=== PATIENT | female | born 1930 | race Asian ===

== ENCOUNTER 2016-12-01 18:18 | Inpatient (IN) | payer MEDICARE, MEDICAID ==
[~2016-12-01] VITALS: Ht 149.9 cm; Wt 43.1 kg
[~2016-12-01 18:18] MED LIST: NKM
[2016-12-01 18:45] VITALS: BP 131/72
[2016-12-01] MEDS ORDERED: OYSTER SHELL 51 EAC1 PO (19:30)
[2016-12-01] MEDS ORDERED: MEGACE40 MG PO (19:30)
[2016-12-01] MEDS ORDERED: FOLIC ACID1 MG ORAL (19:30)
[2016-12-01] MEDS ORDERED: NAMZARIC 28 MG1 EACH PO (19:30)
[2016-12-01] MEDS ORDERED: FERROUS SULFAT325 MG ORAL (19:30)
[2016-12-01] MEDS ORDERED: CELEBREX200 MG ORAL (19:30)
[2016-12-01 20:01] LABS: ALANINE AMINOTRANSFERASE 13 U/L (3-33); ALBUMIN/GLOBULIN RATIO 1.2 (1.0-2.7); ANION GAP 12 (5-15); ASPARTATE AMINO TRANSFERASE 37 U/L (5-40); CARBON DIOXIDE 25 mEQ/L (20-30); CHLORIDE 104 mEQ/L (98-107); CREATININE 0.7 mg/dL (0.5-0.9); HEMOLYSIS 150; POTASSIUM 4.7 mEQ/L (3.4-4.9); SODIUM 141 mEQ/L (135-145); TOTAL PROTEIN 6.6 g/dL (6.6-8.7); TROPONIN I < 0.30 ng/mL (<=0.30)
[2016-12-01 20:11] LABS: CKMB < 1.5 ng/mL (< 3.8)
--- NOTE | 2016-12-01 20:14 | Emergency Room Report ---
History of Present Illness General Chief Complaint: Dizziness Source: Patient, Family Member Present Illness HPI 86YOF BIBEMS for not eating/generalized weakness/low energy for 1 week since she fell/broke left wrist Had cast placed outside hospital. Ortho says non surgical Patient lives alone, was going to daily adult activities and eating prior History of "early" dementia. No HTN, DM, COPD/asthma, CHF, CAD per son Required prior IV infusion at home for weakness and "perked up" per Patient also endorses generalized dizziness - constant - worse with movement. Denies headache, fever/chills, neck pain. Allergies: Coded Allergies: No Known Allergies (Unverified , 03/08/12) Patient History Past Medical History: dementia Past Surgical History: none Pertinent Family History: none Social History: Denies: smoking, alcohol use, drug use Last Menstrual Period: na Now: No Immunizations: UTD Reviewed Nursing Documentation: PMH: Agreed, PSxH: Agreed Nursing Documentation-PMH Past Medical History: No History, Except For Review of Systems All Other Systems: negative except mentioned in HPI Physical Exam Vital Signs Date Time Temp Pulse Resp B/P (MAP) Pulse Ox O2 Delivery O2 Flow Rate FiO2 12/01/16 18:24 97.9 78 16 127/73 99 Room Air Sp02 EP Interpretation: reviewed, normal General Appearance: normal inspection, well appearing, no apparent distress, alert, GCS 15, non-toxic Head: normocephalic, atraumatic Eyes: bilateral eye PERRL, bilateral eye EOMI ENT: normal ENT inspection, hearing grossly normal, normal voice Neck: normal inspection, full range of motion, supple, no bony tend Respiratory: normal inspection, lungs clear, normal breath sounds, no respiratory distress, no retraction, no wheezing Cardiovascular #1: regular rate, rhythm, no edema Gastrointestinal: normal inspection, normal bowel sounds, non tender, soft, no guarding, no hernia Genitourinary: no CVA tenderness Musculoskeletal: normal inspection, back normal, normal range of motion, Chaya' s Sign negative, other - left wrist: cast in place. Able to move all fingers. No pallor. Neurologic: normal inspection, alert, oriented x3, responsive, railroad signal operator III-XII nml as tested, motor strength/tone normal, speech normal Psychiatric: normal inspection, judgement/insight normal, mood/affect normal Skin: normal inspection, normal color, no rash Lymphatic: normal inspection Medical Decision Making Medicare Attestation I Abel Abraham MD hereby attest that the medical record entry for date of service, 12/01/16 accurately reflects signatures/notations that I made in my capacity as MD when I treated/diagnosed the above listed Medicare beneficiary. I attest that this information is true, accurate and complete to the best of my knowledge. I understand that any falsification, omission, or concealment of material fact may subject me to administrative, civil, or criminal liability. This patient warrants hospital admission for extreme of age and has a condition that cannot be treated as outpatient. Diagnostic Impression: Primary Impression: Failure to thrive Qualified Codes: R62.7 - Adult failure to thrive Additional Impression: Weakness ER Course Labs: No leuks. H&h stable. No metabolic abnormalities. CXR normal ECG normal CT head: No CVA, mass, mass effect IV Dextrose NS started in ED Dx: failure to thrive, weakness Endorsed to Dr Neal med surg admission 814pm EKG Diagnostic Results Rate: normal Rhythm: NSR ST Segments: no acute changes ASA given to the pt in ED: No Rhythm Strip Diag. Results EP Interpretation: yes Rate: 68 Rhythm: NSR, no PVC's, no ectopy Chest X-Ray Diagnostic Results Chest X-Ray Diagnostic Results : Chest X-Ray Ordered: Yes # of Views/Limited/Complete: 1 View Indication: Other - weaness Interpretation: no effusion, no pneumothorax, no acute cardiopulmonary disease Impression: No acute disease Electronically Signed by: Dr Abel Abraham MD Last Vital Signs Date Time Temp Pulse Resp B/P (MAP) Pulse Ox O2 Delivery O2 Flow Rate FiO2 12/01/16 18:45 98.1 78 16 131/72 99 Room Air Status: improved Disposition: ADMITTED INPATIENT Condition: Serious Referrals: NON PHYSICIAN (PCP) ABEL ABRAHAM M.D. Dec 01, 2016 20:14
[2016-12-01 20:49] VITALS: BP 123/60
[2016-12-01 20:49] LABS: BASOPHILS % (AUTO) 1.3 % (0.0-2.0); LYMPHOCYTES % (AUTO) 30.7 % (20.0-45.0); MEAN CORPUSCULAR HEMOGLOBIN 35.5 PG (27.0-31.0); MEAN CORPUSCULAR HGB CONC 34.9 G/DL (32.0-36.0); MEAN CORPUSCULAR VOLUME 102 FL (80-99); MEAN PLATELET VOLUME 5.7 FL (6.5-10.1); MONOCYTES % (AUTO) 8.9 % (1.0-10.0); NEUTROPHILS % (AUTO) 57.1 % (45.0-75.0); PLATELET COUNT 168 K/UL (150-450); RED BLOOD COUNT 3.48 M/UL (4.20-5.40); RED CELL DISTRIBUTION WIDTH 10.6 % (11.6-14.8); WHITE BLOOD COUNT 5.3 K/UL (4.8-10.8)
[2016-12-01] MEDS ORDERED: Morphine Sulfate 2mg/ml Inj IVP PRN (21:15)
[2016-12-01] MEDS ORDERED: Miralax 17gm pkt ORAL PRN (21:15)
[2016-12-01] MEDS ORDERED: LORazepam Inj 2mg/ml 1ml IV PRN (21:15)
[2016-12-01] MEDS ORDERED: Zolpidem 5mg tab ORAL PRN (21:15)
[2016-12-01] MEDS ORDERED: Mylanta II UD 30ml ORAL PRN (21:15)
[2016-12-01 22:15] VITALS: BP 109/59
[2016-12-02] VITALS: BP 127/66
[2016-12-02 04:00] VITALS: BP 138/61
[2016-12-02 08:00] VITALS: BP 132/70
[2016-12-02] MEDS: Heparin 5000 units/ml inj SUBQ SCH ×2 (08:42→20:14)
--- NOTE | 2016-12-02 09:48 | Diagnostic Imaging Report ---
Indication: Dizziness and headache Technique: Contiguous 5 mm thick transaxial imaging of the head obtained in a Siemens Sensation [address] scanner. Soft tissue and bone windows generated. Total Dose length Product (DLP): [address] Dose Index Volume (CTDIvol): 70.38, 0.15 mGy Comparison: none Findings: There is moderate prominence of the ventricles, basal cisterns, and cerebral sulci consistent with atrophy. Moderate, nonspecific, white matter hypoattenuation is noted throughout the brain consistent with chronic small vessel disease. There is no midline shift, edema, acute hemorrhage, mass effect, or abnormal extra-axial fluid collections. Bones and extra osseous soft tissues are unremarkable. Impression: No acute intracranial bleed, mass effect or edema. Moderate atrophy of the brain. Evidence of chronic small vessel disease involving white matter tracts. The CT scanner at [facility] is accredited by the [employer] and the scans are performed using dose optimization techniques as appropriate to a performed exam including Automatic Exposure control.
[2016-12-02 10:45] LABS: BASOPHILS % (AUTO) 0.7 % (0.0-2.0); EOSINOPHILS % (AUTO) 2.5 % (0.0-3.0); LYMPHOCYTES % (AUTO) 33.6 % (20.0-45.0); MEAN CORPUSCULAR HEMOGLOBIN 34.4 PG (27.0-31.0); MEAN CORPUSCULAR HGB CONC 33.3 G/DL (32.0-36.0); MEAN CORPUSCULAR VOLUME 103 FL (80-99); MONOCYTES % (AUTO) 8.6 % (1.0-10.0); NEUTROPHILS % (AUTO) 54.6 % (45.0-75.0); PLATELET COUNT 218 K/UL (150-450); RED BLOOD COUNT 4.04 M/UL (4.20-5.40); RED CELL DISTRIBUTION WIDTH 10.9 % (11.6-14.8); WHITE BLOOD COUNT 4.1 K/UL (4.8-10.8)
[2016-12-02 11:02] LABS: ALANINE AMINOTRANSFERASE 12 U/L (3-33); ALBUMIN/GLOBULIN RATIO 1.1 (1.0-2.7); ANION GAP 14 (5-15); ASPARTATE AMINO TRANSFERASE 24 U/L (5-40); CALCIUM 8.9 mg/dL (8.6-10.2); CARBON DIOXIDE 26 mEQ/L (20-30); CHLORIDE 101 mEQ/L (98-107); CHOLESTEROL 203 mg/dL (< 200); CHOLESTEROL/HDL RATIO 3.6 (3.3-4.4); CREATININE 0.8 mg/dL (0.5-0.9); HEMOLYSIS 5; LDL CHOLESTEROL CALC 122 mg/dL (60-99); POTASSIUM 3.7 mEQ/L (3.4-4.9); SODIUM 141 mEQ/L (135-145); TOTAL PROTEIN 7.1 g/dL (6.6-8.7)
[2016-12-02 11:04] LABS: HEMOGLOBIN A1C 5.5 % (< 6.0)
--- NOTE | 2016-12-02 11:32 | Diagnostic Imaging Report ---
Indication: Dyspnea Comparison: 03/08/12 A single view chest radiograph was obtained. Findings: The bones are osteopenic. The heart is mildly enlarged. Aorta is ectatic and calcified. Lungs are clear. Impression: No acute disease
[2016-12-02 12:00] VITALS: BP 113/64
[2016-12-02 16:00] VITALS: BP 110/66
--- NOTE | 2016-12-02 16:37 | History and Physical ---
History of Present Illness General Date patient seen: Dec 01, 2016 Reason for Hospitalization: Dizziness Present Illness HPI 86 year old female with hx of dementia brought in by paramedics with CC of lack of energy, not eating and constant dizziness which gets worse with moving. She broke her wrist recently and also was getting some IV meds at PMD's office. she is a poor historian and can't provide more history. Allergies: Coded Allergies: No Known Allergies (Unverified , 03/08/12) Medication History Scheduled Calcium Carbonate/Vitamin D3 (Oyster Shell 500 Mg + Vit D Tb), 1 EACH PO BID, ( Reported) Celecoxib* (Celebrex*), 200 MG ORAL DAILY, (Reported) Ferrous Sulfate* (Ferrous Sulfate*), 325 MG ORAL DAILY, (Reported) Folic Acid* (Folic Acid*), 1 MG ORAL DAILY, (Reported) Megestrol Acetate (Megestrol Acetate), 40 MG PO BID, (Reported) No Known Medications* (NKM - No Known Medications*), 0 ., (Reported) Miscellaneous Medications Memantine HCl/Donepezil HCl (Namzaric 28 mg-10 mg Capsule), 1 EACH PO, (Reported ) Patient History Healthcare decision maker Resuscitation status Full Code Advanced Directive on File No Past Medical/Surgical History Past Medical/Surgical History: (1) Dizziness (2) Dementia Review of Systems All Other Systems: negative except mentioned in HPI Physical Exam General Appearance: WD/WN Lines, tubes and drains: peripheral, central line HEENT: normocephalic, atraumatic Neck: non-tender, normal alignment Respiratory/Chest: chest wall non-tender, lungs clear Breasts: no masses Cardiovascular/Chest: normal peripheral pulses Abdomen: normal bowel sounds, non tender Genitourinary/Rectal: normal genital exam Extremities: normal range of motion Skin Exam: normal pigmentation Last 24 Hour Vital Signs Date Time Temp Pulse Resp B/P (MAP) Pulse Ox O2 Delivery O2 Flow Rate FiO2 12/02/16 12:00 98.2 82 18 113/64 99 Room Air 12/02/16 08:00 98.9 75 18 132/70 99 Room Air 12/02/16 04:00 97.6 68 16 138/61 98 Room Air 12/02/16 00:00 98.0 76 17 127/66 98 Room Air 12/01/16 22:15 97.9 71 16 109/59 98 Room Air 12/01/16 21:11 98.1 68 16 123/60 98 Room Air 12/01/16 20:49 98.1 68 16 123/60 98 Room Air 12/01/16 18:45 98.1 78 16 131/72 99 Room Air 12/01/16 18:24 97.9 78 16 127/73 99 Room Air Laboratory Tests Test 12/01/16 19:20 12/01/16 20:19 12/02/16 10:35 Sodium Level 141 mEQ/L (135-145) 141 mEQ/L (135-145) Potassium Level 4.7 mEQ/L (3.4-4.9) 3.7 mEQ/L (3.4-4.9) Chloride Level 104 mEQ/L (98-107) 101 mEQ/L (98-107) Carbon Dioxide Level 25 mEQ/L (20-30) 26 mEQ/L (20-30) Anion Gap 12 (5-15) 14 (5-15) Blood Urea Nitrogen 20 mg/dL (7-23) 14 mg/dL (7-23) Creatinine 0.7 mg/dL (0.5-0.9) 0.8 mg/dL (0.5-0.9) Estimat Glomerular Filtration Rate mL/min (>60) mL/min (>60) Glucose Level 99 mg/dL (74-106) 191 mg/dL (74-106) H Calcium Level 9.0 mg/dL (8.6-10.2) 8.9 mg/dL (8.6-10.2) Total Bilirubin 0.5 mg/dL (0.0-1.2) 0.6 mg/dL (0.0-1.2) Aspartate Amino Transf (AST/SGOT) 37 U/L (5-40) 24 U/L (5-40) Alanine Aminotransferase (ALT/SGPT) 13 U/L (3-33) 12 U/L (3-33) Alkaline Phosphatase 41 U/L (35-104) 44 U/L (35-104) Total Creatine Kinase 69 U/L (26-140) Creatine Kinase MB < 1.5 ng/mL (< 3.8) Creatine Kinase MB Relative Index Troponin I < 0.30 ng/mL (<=0.30) Total Protein 6.6 g/dL (6.6-8.7) 7.1 g/dL (6.6-8.7) Albumin 3.7 g/dL (3.5-5.2) 3.8 g/dL (3.5-5.2) Globulin 2.9 g/dL 3.3 g/dL Albumin/Globulin Ratio 1.2 (1.0-2.7) 1.1 (1.0-2.7) White Blood Count 5.3 K/UL (4.8-10.8) 4.1 K/UL (4.8-10.8) L Red Blood Count 3.48 M/UL (4.20-5.40) L 4.04 M/UL (4.20-5.40) L Hemoglobin 12.4 G/DL (12.0-16.0) 13.9 G/DL (12.0-16.0) Hematocrit 35.4 % (37.0-47.0) L 41.8 % (37.0-47.0) Mean Corpuscular Volume 102 FL (80-99) H 103 FL (80-99) H Mean Corpuscular Hemoglobin 35.5 PG (27.0-31.0) H 34.4 PG (27.0-31.0) H Mean Corpuscular Hemoglobin Concent 34.9 G/DL (32.0-36.0) 33.3 G/DL (32.0-36.0) Red Cell Distribution Width 10.6 % (11.6-14.8) L 10.9 % (11.6-14.8) L Platelet Count 168 K/UL (150-450) 218 K/UL (150-450) Mean Platelet Volume 5.7 FL (6.5-10.1) L 6.0 FL (6.5-10.1) L Neutrophils (%) (Auto) 57.1 % (45.0-75.0) 54.6 % (45.0-75.0) Lymphocytes (%) (Auto) 30.7 % (20.0-45.0) 33.6 % (20.0-45.0) Monocytes (%) (Auto) 8.9 % (1.0-10.0) 8.6 % (1.0-10.0) Eosinophils (%) (Auto) 2.0 % (0.0-3.0) 2.5 % (0.0-3.0) Basophils (%) (Auto) 1.3 % (0.0-2.0) 0.7 % (0.0-2.0) Hemoglobin A1c 5.5 % (< 6.0) Triglycerides Level 127 mg/dL (< 150) Cholesterol Level 203 mg/dL (< 200) H LDL Cholesterol 122 mg/dL (60-99) H HDL Cholesterol 56 mg/dL (> 60) Cholesterol/HDL Ratio 3.6 (3.3-4.4) Thyroid Stimulating Hormone (TSH) 2.000 uIU/mL (0.300-4.500) Height (Feet): 4 Height (Inches): 11.00 Weight (Pounds): 95 Medications Current Medications Medications (Trade) Dose Ordered Sig/Lisa Route PRN Reason Start Time Stop Time Status Last Admin Dose Admin Acetaminophen (Tylenol) 650 mg Q4H PRN ORAL T>100.5 12/01/16 21:15 12/31/16 21:14 Al Hydroxide/Mg Hydroxide (Mylanta II) 30 ml Q6H PRN ORAL dyspepsia 12/01/16 21:15 12/31/16 21:14 Dextrose (Dextrose 50%) STAT PRN IV Hypoglycemia 12/01/16 21:15 12/31/16 21:14 Dextrose/Sodium Chloride 1,000 ml @ 50 mls/hr Q20H IV 12/02/16 16:30 01/01/17 16:29 Heparin Sodium (Porcine) (Heparin 5000 units/ml) 5,000 units EVERY 12 HOURS SUBQ 12/02/16 09:00 01/01/17 08:59 12/02/16 08:42 Lorazepam (Ativan 2mg/ml 1ml) 0.5 mg Q4H PRN IV For Anxiety 12/01/16 21:15 12/08/16 21:14 Morphine Sulfate (Morphine Sulfate) 1 mg Q4H PRN IVP PAIN 4-10 12/01/16 21:15 12/08/16 21:14 Ondansetron HCl (Zofran) 4 mg Q6H PRN IVP Nausea & Vomiting 12/01/16 21:15 12/31/16 21:14 Polyethylene Glycol (Miralax) 17 gm HSPRN PRN ORAL Constipation 12/01/16 21:15 12/31/16 21:14 Zolpidem Tartrate (Ambien) 5 mg HSPRN PRN ORAL Insomnia 12/01/16 21:15 12/08/16 21:14 Assessment/Plan Problem List: (1) Dizziness ICD Codes: R42 - Dizziness and giddiness SNOMED: 877963351, 420909117 (2) Failure to thrive SNOMED: 15896412 Qualifiers: Qualified Codes: R62.7 - Adult failure to thrive (3) Protein-calorie malnutrition, severe ICD Codes: E43 - Unspecified severe protein-calorie malnutrition SNOMED: 131871305 (4) Dementia ICD Codes: F03.90 - Unspecified dementia without behavioral disturbance SNOMED: 91196092 (5) Weakness ICD Codes: R53.1 - Weakness SNOMED: 25595565 Assessment/Plan neuro evaluation calorie count swallow evaluation pt/ot symptomatic treatment SKY SCHULER Dec 02, 2016 16:37
--- NOTE | 2016-12-02 16:38 | Pulmonology Progress Note ---
Assessment/Plan Problems: (1) Dizziness (2) Failure to thrive (3) Protein-calorie malnutrition, severe (4) Dementia (5) Weakness Assessment/Plan swallow study noted neuro evaluation pending continue calorie count pt/ot noted. Subjective ROS Limited/Unobtainable: No HEENT: Repors: no symptoms Respiratory: Reports: no symptoms Allergies: Coded Allergies: No Known Allergies (Unverified , 03/08/12) Objective Last 24 Hour Vital Signs Date Time Temp Pulse Resp B/P (MAP) Pulse Ox O2 Delivery O2 Flow Rate FiO2 12/02/16 12:00 98.2 82 18 113/64 99 Room Air 12/02/16 08:00 98.9 75 18 132/70 99 Room Air 12/02/16 04:00 97.6 68 16 138/61 98 Room Air 12/02/16 00:00 98.0 76 17 127/66 98 Room Air 12/01/16 22:15 97.9 71 16 109/59 98 Room Air 12/01/16 21:11 98.1 68 16 123/60 98 Room Air 12/01/16 20:49 98.1 68 16 123/60 98 Room Air 12/01/16 18:45 98.1 78 16 131/72 99 Room Air 12/01/16 18:24 97.9 78 16 127/73 99 Room Air General Appearance: cachetic HEENT: normocephalic, atraumatic Respiratory/Chest: chest wall non-tender, lungs clear Breasts: no masses Cardiovascular: normal peripheral pulses Abdomen: normal bowel sounds, soft, non tender Skin: no rash, no ulcers Neurologic/Psychiatric: pit hand II-XII grossly normal Laboratory Tests 12/01/16 19:20: Sodium Level 141, Potassium Level 4.7, Chloride Level 104, Carbon Dioxide Level 25, Anion Gap 12, Blood Urea Nitrogen 20, Creatinine 0.7, Estimat Glomerular Filtration Rate , Glucose Level 99, Calcium Level 9.0, Total Bilirubin 0.5, Aspartate Amino Transf (AST/SGOT) 37, Alanine Aminotransferase (ALT/SGPT) 13, Alkaline Phosphatase 41, Total Creatine Kinase 69, Creatine Kinase MB < 1.5, Creatine Kinase MB Relative Index , Troponin I < 0.30, Total Protein 6.6, Albumin 3.7, Globulin 2.9, Albumin/Globulin Ratio 1.2 12/01/16 20:19: White Blood Count 5.3, Red Blood Count 3.48L, Hemoglobin 12.4, Hematocrit 35.4L , Mean Corpuscular Volume 102H, Mean Corpuscular Hemoglobin 35.5H, Mean Corpuscular Hemoglobin Concent 34.9, Red Cell Distribution Width 10.6L, Platelet Count 168, Mean Platelet Volume 5.7L, Neutrophils (%) (Auto) 57.1, Lymphocytes (%) (Auto) 30.7, Monocytes (%) (Auto) 8.9, Eosinophils (%) (Auto) 2.0, Basophils (%) (Auto) 1.3 12/02/16 10:35: Sodium Level 141, Potassium Level 3.7, Chloride Level 101, Carbon Dioxide Level 26, Anion Gap 14, Blood Urea Nitrogen 14, Creatinine 0.8, Estimat Glomerular Filtration Rate , Glucose Level 191H, Calcium Level 8.9, Total Bilirubin 0.6, Aspartate Amino Transf (AST/SGOT) 24, Alanine Aminotransferase (ALT/SGPT) 12, Alkaline Phosphatase 44, Total Protein 7.1, Albumin 3.8, Globulin 3.3, Albumin/ Globulin Ratio 1.1, White Blood Count 4.1L, Red Blood Count 4.04L, Hemoglobin 13.9, Hematocrit 41.8, Mean Corpuscular Volume 103H, Mean Corpuscular Hemoglobin 34.4H, Mean Corpuscular Hemoglobin Concent 33.3, Red Cell Distribution Width 10.9L, Platelet Count 218, Mean Platelet Volume 6.0L, Neutrophils (%) (Auto) 54.6, Lymphocytes (%) (Auto) 33.6, Monocytes (%) (Auto) 8.6, Eosinophils (%) (Auto) 2.5, Basophils (%) (Auto) 0.7, Hemoglobin A1c 5.5, Triglycerides Level 127, Cholesterol Level 203H, LDL Cholesterol 122H, HDL Cholesterol 56, Cholesterol/HDL Ratio 3.6, Thyroid Stimulating Hormone (TSH) 2.000 Current Medications Medications (Trade) Dose Ordered Sig/Lisa Route PRN Reason Start Time Stop Time Status Last Admin Dose Admin Acetaminophen (Tylenol) 650 mg Q4H PRN ORAL T>100.5 12/01/16 21:15 12/31/16 21:14 Al Hydroxide/Mg Hydroxide (Mylanta II) 30 ml Q6H PRN ORAL dyspepsia 12/01/16 21:15 12/31/16 21:14 Dextrose (Dextrose 50%) STAT PRN IV Hypoglycemia 12/01/16 21:15 12/31/16 21:14 Dextrose/Sodium Chloride 1,000 ml @ 50 mls/hr Q20H IV 12/02/16 16:30 01/01/17 16:29 Heparin Sodium (Porcine) (Heparin 5000 units/ml) 5,000 units EVERY 12 HOURS SUBQ 12/02/16 09:00 01/01/17 08:59 12/02/16 08:42 Lorazepam (Ativan 2mg/ml 1ml) 0.5 mg Q4H PRN IV For Anxiety 12/01/16 21:15 12/08/16 21:14 Morphine Sulfate (Morphine Sulfate) 1 mg Q4H PRN IVP PAIN 4-10 12/01/16 21:15 12/08/16 21:14 Ondansetron HCl (Zofran) 4 mg Q6H PRN IVP Nausea & Vomiting 12/01/16 21:15 12/31/16 21:14 Polyethylene Glycol (Miralax) 17 gm HSPRN PRN ORAL Constipation 12/01/16 21:15 12/31/16 21:14 Zolpidem Tartrate (Ambien) 5 mg HSPRN PRN ORAL Insomnia 12/01/16 21:15 12/08/16 21:14 SKY SCHULER Dec 02, 2016 16:38
[2016-12-02] MEDS: D5 1/2NS 1,000 ML IV SCH (16:48)
[2016-12-02 20:00] VITALS: BP 104/60
[2016-12-03] VITALS: BP 143/74
[2016-12-03 04:00] VITALS: BP 110/62
[2016-12-03] MEDS: Heparin 5000 units/ml inj SUBQ SCH ×2 (09:00→21:18)
[2016-12-03 12:00] VITALS: BP 150/73
[2016-12-03] MEDS: D5 1/2NS 1,000 ML IV SCH (13:08)
--- NOTE | 2016-12-03 14:26 | Pulmonology Progress Note ---
Assessment/Plan Problems: (1) Dizziness (2) Failure to thrive (3) Protein-calorie malnutrition, severe (4) Dementia (5) Weakness Assessment/Plan swallow study noted, diet was changed to pureed neuro evaluation pending continue calorie count pt/ot noted dc planning ordered.. Subjective ROS Limited/Unobtainable: No Constitutional: Reports: no symptoms HEENT: Repors: no symptoms Allergies: Coded Allergies: No Known Allergies (Unverified , 03/08/12) Objective Last 24 Hour Vital Signs Date Time Temp Pulse Resp B/P (MAP) Pulse Ox O2 Delivery O2 Flow Rate FiO2 12/03/16 12:00 97.2 77 20 150/73 95 Room Air 12/03/16 04:00 98.1 79 16 110/62 Room Air 12/03/16 00:00 98.6 83 18 143/74 96 Room Air 12/02/16 20:00 98.3 74 18 104/60 96 Room Air 12/02/16 16:00 97.9 89 18 110/66 99 Room Air Intake and Output 12/03/16 12/04/16 19:00 07:00 Intake Total 550 ml Balance 550 ml Intake Oral 250 ml IV Total 300 ml General Appearance: WD/WN HEENT: normocephalic, atraumatic Respiratory/Chest: chest wall non-tender, lungs clear Breasts: no masses Cardiovascular: normal peripheral pulses Abdomen: normal bowel sounds, soft, non tender Extremities: no cyanosis Skin: no rash Neurologic/Psychiatric: polisher hand II-XII grossly normal Current Medications Medications (Trade) Dose Ordered Sig/Lisa Route PRN Reason Start Time Stop Time Status Last Admin Dose Admin Acetaminophen (Tylenol) 650 mg Q4H PRN ORAL T>100.5 12/01/16 21:15 12/31/16 21:14 Al Hydroxide/Mg Hydroxide (Mylanta II) 30 ml Q6H PRN ORAL dyspepsia 12/01/16 21:15 12/31/16 21:14 Dextrose (Dextrose 50%) STAT PRN IV Hypoglycemia 12/01/16 21:15 12/31/16 21:14 Dextrose/Sodium Chloride 1,000 ml @ 50 mls/hr Q20H IV 12/02/16 16:30 01/01/17 16:29 12/03/16 13:08 Heparin Sodium (Porcine) (Heparin 5000 units/ml) 5,000 units EVERY 12 HOURS SUBQ 12/02/16 09:00 01/01/17 08:59 12/03/16 09:00 Lorazepam (Ativan 2mg/ml 1ml) 0.5 mg Q4H PRN IV For Anxiety 12/01/16 21:15 12/08/16 21:14 Morphine Sulfate (Morphine Sulfate) 1 mg Q4H PRN IVP PAIN 4-10 12/01/16 21:15 12/08/16 21:14 Ondansetron HCl (Zofran) 4 mg Q6H PRN IVP Nausea & Vomiting 12/01/16 21:15 12/31/16 21:14 Polyethylene Glycol (Miralax) 17 gm HSPRN PRN ORAL Constipation 12/01/16 21:15 12/31/16 21:14 Zolpidem Tartrate (Ambien) 5 mg HSPRN PRN ORAL Insomnia 12/01/16 21:15 12/08/16 21:14 SKY SCHULER Dec 03, 2016 14:26
[2016-12-03 16:00] VITALS: BP_SYST 124; BP_SYST 158; BP_DIAS 55; BP_DIAS 61
[2016-12-03] MEDS ORDERED: D5 1/2NS 1000ml IV ONE (19:57)
[2016-12-03 20:00] VITALS: BP 152/70
[2016-12-04] VITALS: BP 125/50
[2016-12-04 04:00] VITALS: BP 110/55
[2016-12-04 08:21] VITALS: BP 110/58
[2016-12-04] MEDS: D5 1/2NS 1,000 ML IV SCH (11:03)
[2016-12-04] MEDS: Heparin 5000 units/ml inj SUBQ SCH (11:04)
[2016-12-04 11:21] VITALS: BP 106/60
[2016-12-04] MEDS ORDERED: MIRALAX17 G2 ORAL (14:18)
[2016-12-04] MEDS ORDERED: ACETAMINOPHEN325 M1 ORAL (14:18)
[2016-12-04] MEDS ORDERED: AMBIEN5 MG ORAL (14:18)
--- NOTE | 2016-12-04 16:39 | Pulmonology Progress Note ---
Assessment/Plan Problems: (1) Dizziness (2) Failure to thrive (3) Protein-calorie malnutrition, severe (4) Dementia (5) Weakness Assessment/Plan swallow study noted, diet was changed to pureed neuro evaluation pending continue calorie count pt/ot noted dc planning ordered.. Subjective ROS Limited/Unobtainable: No Constitutional: Reports: no symptoms HEENT: Repors: no symptoms Respiratory: Reports: no symptoms Allergies: Coded Allergies: No Known Allergies (Unverified , 03/08/12) Objective Last 24 Hour Vital Signs Date Time Temp Pulse Resp B/P (MAP) Pulse Ox O2 Delivery O2 Flow Rate FiO2 12/04/16 11:21 98.6 87 20 106/60 97 Room Air 12/04/16 08:21 98.6 64 19 110/58 98 Room Air 12/04/16 04:00 97.8 69 17 110/55 98 Room Air 12/04/16 00:00 98.4 67 17 125/50 96 Room Air 12/03/16 20:00 98.4 72 17 152/70 96 Room Air Intake and Output 12/04/16 12/05/16 19:00 07:00 Intake Total 665 ml Balance 665 ml Intake Oral 365 ml IV Total 300 ml # Voids 5 # Bowel Movements 2 General Appearance: WD/WN, no acute distress HEENT: normocephalic, atraumatic Respiratory/Chest: chest wall non-tender, normal breath sounds Cardiovascular: normal peripheral pulses, normal rate Abdomen: normal bowel sounds Extremities: no cyanosis Skin: no rash SKY SCHULER Dec 04, 2016 16:39
--- NOTE | 2016-12-05 10:31 | Discharge Summary ---
Discharge Summary Hospital Course Date of Admission Dec 01, 2016 at 19:47 Date of Discharge Dec 04, 2016 at 15:50 Admitting Diagnosis WEAKNESS GARY Pepper is a 86 year old female who was admitted on Dec 01, 2016 at 19:47 for Weakness Hospital Course [id number]. Discharge Discharge Disposition Patient was discharged to SNF/Subacute Facility(03) Discharge Diagnoses: Gladis Pettit NP Dec 05, 2016 10:31
--- NOTE | 2016-12-06 06:15 | Discharge Summary 2 SIG ---
DATE OF ADMISSION: 12/01/2016 DATE OF DISCHARGE: 12/04/2016 Brief Hospital Course: The patient is an 86-year-old female with history of dementia, who was brought in by paramedics for complaints of lack of energy, not eating well, and with constant dizziness, which gets worse when moving. She broke her wrist recently and was also getting intravenous medications at PMD office. On evaluation at ED, blood work did not show any leukocytosis. Hemoglobin and hematocrit were stable. CT of the head done showed no acute intracranial bleed, mass effect, or edema with moderate atrophy of the brain and evidence of chronic small vessel disease involving the white matter tracts. EKG done was in normal sinus rhythm, rate of 68 with no premature ventricular contractions and no ectopy. Chest x-ray showed no acute disease. She was started on IV hydration at ED. She was admitted to med/surg for evaluation of weakness, dizziness, failure to thrive, and dementia. She underwent physical therapy and calorie count. She had a swallow evaluation done. There was no overt signs and symptoms of aspiration, but at risk of silent aspiration. She was recommended to downgrade the diet to liquefied pureed with nectar thick soup consistency. She was eventually discharged to long term facility to continue with rehabilitation and conditioning. FINAL DIAGNOSES: 1. Dizziness and weakness. 2. Failure to thrive with severe protein-calorie malnutrition. 3. Dementia. Discharge Disposition: The patient was discharged to [facility]. DISCHARGE MEDICATIONS: Refer to medication list. Rom Neal M.D. I have been assigned to dictate discharge summary on this account and I was not involved in the patient's management. Gladis Pettit N.P. DR: NEW JOB#: [id number] CC: CATHI
--- NOTE | 2016-12-28 18:04 | Cardiology Report ---
APPROVED REPORT EKG Measurement Heart [id number] Normal sinus rhythm Normal ECG
== END 2016-12-04 15:50 | DRG 640 ==
LOC: EDBD 18:18 → EDSEX 18:18 → EDUNIT# 18:18 → EMR 19:15 → 3E 19:47 → EDBEDREQ 20:56 → 3E 21:50
DX: R62.7 Adult failure to thrive (principal); E43 Unspecified severe protein-calorie malnutrition; Z68.1 Body mass index [BMI] 19.9 or less, adult; F03.90 Unspecified dementia, unspecified severity, without behavioral disturbance, psychotic disturbance, mood disturbance, and anxiety; R53.1 Weakness; R42 Dizziness and giddiness
CPT/HCPCS: 36415; 70450; 71010; 80053; 80061; 82550; 82553; 83036; 84443; 84484; 85025; 93005; 99285

== ENCOUNTER 2018-12-08 20:54 | Inpatient (IN) | payer MEDICARE, MEDICAID ==
[~2018-12-08] VITALS: Ht 162.6 cm; Wt 50.0 kg
[~2018-12-08 20:54] MED LIST changes: +ACETAMINOPHEN325 M1 ORAL; +AMBIEN5 MG ORAL; +CELEBREX200 MG ORAL; +FERROUS SULFAT325 MG ORAL; +FOLIC ACID1 MG ORAL; +MEGACE40 MG PO; +MIRALAX17 G2 ORAL; +NAMZARIC 28 MG1 EACH PO; +OYSTER SHELL 51 EAC1 PO
[2018-12-08 21:10] VITALS: BP 125/67
--- NOTE | 2018-12-08 21:10 | NUR ---
ED Nurse Note: Patient was BIBA from [facility] due to SOB, hemoptysis, SOB. Per stuff she coughed blood 2 times at the facility. Patient presented so dehydrated, lethargic, AAO x0, skin is very dry, has pressure ulcer on her sacral area.
--- NOTE | 2018-12-08 21:12 | Emergency Room Report ---
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 Patient [facility] for evaluation from jail Allergies: Coded Allergies: No Known Allergies (Unverified , 03/08/12) Patient History Limited by: medical condition - Altered Past Medical History: see triage record Reviewed Nursing Documentation: PMH: Agreed; PSxH: Agreed Nursing Documentation-PMH Past Medical History: No History, Except For Hx Cancer: No Hx Gastrointestinal Problems: No Hx Dementia: Yes - EARLY DEMENTIA Review of Systems All Other Systems: limited - Patient is altered Physical Exam Vital Signs Date Time Temp Pulse Resp B/P (MAP) Pulse Ox O2 Delivery O2 Flow Rate FiO2 12/08/18 20:58 98.2 138 20 125/67 (86) 96 Nasal Cannula 2.0 Sp02 EP Interpretation: reviewed, abnormal - Reduced General Appearance: well appearing, no apparent distress, alert Head: normocephalic, atraumatic Eyes: bilateral eye PERRL, bilateral eye EOMI ENT: uvula midline, dry mucus membranes Neck: supple, thyroid normal, supple/symm/no masses Respiratory: lungs clear, no respiratory distress, no retraction, no accessory muscle use Cardiovascular #1: normal peripheral pulses, no edema, no gallop, no murmur, tachycardia Gastrointestinal: non tender, soft, no guarding, no rebound Musculoskeletal: normal inspection Neurologic: alert, responsive Psychiatric: mood/affect normal Skin: no rash, warm/dry Procedures Critical Care Time Critical Care Time Given the critical condition in which the patient arrived, the patient was immediately assessed by myself and the nurse, and cardiac monitoring initiated due to the potential for rapid decompensation of the patient's clinical condition. During the course of the patient's stay, I spent a considerable amount of time at the bedside performing serial re-evaluations of the patient's hemodynamic and clinical status because of the recognized potential threat to life or limb in this condition. I then had a chance to review not only all of the available current laboratory and radiographic studies obtained today, but I also reviewed old records available to me at the time. Additionally, any ancillary information available including tax professional records were reviewed. Sequential vital signs were obtained. Critical Care time of 33 minutes was performed exclusive of billable procedures. Medical Decision Making Diagnostic Impression: Primary Impression: UTI (urinary tract infection) Qualified Codes: N30.01 - Acute cystitis with hematuria Additional Impressions: Sepsis Qualified Codes: A41.9 - Sepsis, unspecified organism Pneumonia Qualified Codes: J18.1 - Lobar pneumonia, unspecified organism Dehydration ER Course 88-year-old female presents with altered mental status, coughing up patient was febrile, tachycardic, concern for sepsis patient was showing signs of endorgan damage with altered mental state, patient with dry mucous membranes, will rehydrate patient, broad spectrum antibiotic started for possible acquired pneumonia given that she lives in a jail Patient resuscitated, patient improved with resolution of tachycardia Patient will be admitted to stepdown given initial requirement for oxygen Attempted to get in contact with Dr. Sood, to determine initial admitting physician. Patient was admitted to Dr. Collado and Ángel who admitted her last time Laboratory Tests Test 12/08/18 21:15 12/08/18 21:20 12/08/18 21:36 White Blood Count 8.8 K/UL (4.8-10.8) Red Blood Count 3.70 M/UL (4.20-5.40) L Hemoglobin 13.0 G/DL (12.0-16.0) Hematocrit 38.0 % (37.0-47.0) Mean Corpuscular Volume 103 FL (80-99) H Mean Corpuscular Hemoglobin 35.1 PG (27.0-31.0) H Mean Corpuscular Hemoglobin Concent 34.1 G/DL (32.0-36.0) Red Cell Distribution Width 10.9 % (11.6-14.8) L Platelet Count 256 K/UL (150-450) Mean Platelet Volume 5.9 FL (6.5-10.1) L Neutrophils (%) (Auto) 82.3 % (45.0-75.0) H Lymphocytes (%) (Auto) 7.8 % (20.0-45.0) L Monocytes (%) (Auto) 9.0 % (1.0-10.0) Eosinophils (%) (Auto) 0.0 % (0.0-3.0) Basophils (%) (Auto) 0.9 % (0.0-2.0) Prothrombin Time 11.0 SEC (9.30-11.50) Prothrombin Time INR 1.0 (0.9-1.1) PTT 30 SEC (23-33) Sodium Level 144 MMOL/L (136-145) Potassium Level 3.0 MMOL/L (3.5-5.1) L Chloride Level 103 MMOL/L (98-107) Carbon Dioxide Level 29 MMOL/L (21-32) Anion Gap 12 mmol/L (5-15) Blood Urea Nitrogen 14 mg/dL (7-18) Creatinine 0.7 MG/DL (0.55-1.30) Estimate Glomerular Filtration Rate mL/min (>60) Glucose Level 166 MG/DL (74-106) H Lactic Acid Level 1.60 mmol/L (0.4-2.0) Calcium Level 9.7 MG/DL (8.5-10.1) Phosphorus Level 2.9 MG/DL (2.5-4.9) Magnesium Level 1.7 MG/DL (1.8-2.4) L Total Bilirubin 0.6 MG/DL (0.2-1.0) Aspartate Amino Transferase (AST) 24 U/L (15-37) Alanine Aminotransferase (ALT) 14 U/L (12-78) Alkaline Phosphatase 74 U/L (46-116) Total Creatine Kinase 33 U/L (26-308) Creatine Kinase MB 0.5 NG/ML (0.0-3.6) Creatine Kinase MB Relative Index 1.5 Troponin I 0.002 ng/mL (0.000-0.056) Pro-B-Type Natriuretic Peptide 1584 pg/mL (0-125) H Total Protein 7.9 G/DL (6.4-8.2) Albumin 2.4 G/DL (3.4-5.0) L Globulin 5.5 g/dL Albumin/Globulin Ratio 0.4 (1.0-2.7) L Lipase 148 U/L (73-393) Urine Color Pale yellow Urine Appearance Cloudy Urine pH 5 (4.5-8.0) Urine Specific [place] 1.020 (1.005-1.035) Urine Protein 3+ (NEGATIVE) H Urine Glucose (UA) Negative (NEGATIVE) Urine Ketones 3+ (NEGATIVE) H Urine Blood 4+ (NEGATIVE) H Urine Nitrite Negative (NEGATIVE) Urine Bilirubin 1+ (NEGATIVE) H Urine Ictotest Negative (NEGATIVE) Urine Urobilinogen 4 MG/DL (0.0-1.0) H Urine Leukocyte Esterase 3+ (NEGATIVE) H Urine RBC Tntc /HPF (0 - 2) H Urine WBC Tntc /HPF (0 - 2) H Urine Squamous Epithelial Cells Few /LPF (NONE/OCC) Urine Bacteria Many /HPF (NONE) H Arterial Blood pH 7.467 (7.350-7.450) Arterial Blood Partial Pressure CO2 34.4 mmHg (35.0-45.0) L Arterial Blood Partial Pressure O2 75.0 mmHg (75.0-100.0) Arterial Blood HCO3 24.3 mmol/L (22.0-26.0) Arterial Blood Oxygen Saturation 95.8 % (95-100) Arterial Blood Base Excess 1.0 (-2-2) Jayme Test Positive EKG Diagnostic Results EKG Time: 21:35 EP Interpretation: Sinus tachycardia, rate 118, QTc 476, no acute ST elevations , normal axis Rhythm Strip Diag. Results Rhythm Strip Time: 21:11 EP Interpretation: yes Rate: 116 Rhythm: other - Sinus tachycardia Chest X-Ray Diagnostic Results Chest X-Ray Diagnostic Results : Chest X-Ray Ordered: Yes # of Views/Limited/Complete: 1 View Indication: Shortness of Breath EP Interpretation: Yes Interpretation: other - Left lower lobe pneumonia Impression: Other - Left lower lobe pneumonia Electronically Signed by: Rashad Vazquez MD Last Vital Signs Date Time Temp Pulse Resp B/P (MAP) Pulse Ox O2 Delivery O2 Flow Rate FiO2 12/08/18 20:58 98.2 138 20 125/67 (86) 96 Nasal Cannula 2.0 Disposition: ADMITTED INPATIENT Condition: Serious Rashad Vazquez MD Dec 08, 2018 21:12
--- NOTE | 2018-12-08 21:20 | NUR ---
ED Nurse Note: Archer catheter was placed 16F, blood and urine were collected sent down.
--- NOTE | 2018-12-08 21:40 | NUR ---
ED Nurse Note: Son is by bed side
[2018-12-08] MEDS ORDERED: Azithromycin 500 MG in NS 275 ML IV ONE (21:45)
[2018-12-08] MEDS ORDERED: Vancomycin 1 GM in NS 275 ML IVPB ONE (21:45)
[2018-12-08] MEDS ORDERED: Cefepime HCl 2 GM in D5W 55 ML IVPB ONE (21:45)
[2018-12-08 22:19] LABS: APPEARANCE,URINE CLOUDY; BILIRUBIN, URINE 1+ (NEGATIVE); GLUCOSE, URINE (UA) NEGATIVE (NEGATIVE); KETONES,URINE 3+ (NEGATIVE); LEUKOCYTE ESTERASE ,URINE 3+ (NEGATIVE); NITRITE,URINE NEGATIVE (NEGATIVE); PH,URINE 5 (4.5-8.0); PROTEIN,URINE 3+ (NEGATIVE); UROBILINOGEN,URINE 4 MG/DL (0.0-1.0)
[2018-12-08 22:20] LABS: BASOPHILS % (AUTO) 0.9 % (0.0-2.0); LYMPHOCYTES % (AUTO) 7.8 % (20.0-45.0); MEAN CORPUSCULAR VOLUME 103 FL (80-99); NEUTROPHILS % (AUTO) 82.3 % (45.0-75.0); PLATELET COUNT 256 K/UL (150-450); RED CELL DISTRIBUTION WIDTH 10.9 % (11.6-14.8); WHITE BLOOD COUNT 8.8 K/UL (4.8-10.8)
[2018-12-08 22:23] LABS: COLOR,URINE PALE YELLOW
[2018-12-08 22:31] LABS: ANION GAP 12 mmol/L (5-15); BLOOD UREA NITROGEN 14 mg/dL (7-18); CALCIUM 9.7 MG/DL (8.5-10.1); CARBON DIOXIDE 29 MMOL/L (21-32); CHLORIDE 103 MMOL/L (98-107); CREATININE 0.7 MG/DL (0.55-1.30); SODIUM 144 MMOL/L (136-145)
[2018-12-08] MEDS ORDERED: D5NS 1,000 ML IV SCH (22:34)
[2018-12-08 22:44] LABS: ALANINE AMINOTRANSFERASE 14 U/L (12-78); ALBUMIN 2.4 G/DL (3.4-5.0); ALBUMIN/GLOBULIN RATIO 0.4 (1.0-2.7); ALKALINE PHOSPHATASE 74 U/L (46-116); ASPARTATE AMINO TRANSFERASE 24 U/L (15-37); BILIRUBIN,TOTAL 0.6 MG/DL (0.2-1.0); CKMB 0.5 NG/ML (0.0-3.6); CREATINE KINASE 33 U/L (26-308); PHOSPHORUS 2.9 MG/DL (2.5-4.9)
[2018-12-08] MEDS ORDERED: Miralax 17gm pkt ORAL PRN (22:45)
[2018-12-08] MEDS ORDERED: Nitroglycerin Subl 0.4mg tab SL PRN (22:45)
[2018-12-08] MEDS ORDERED: Morphine Sulfate 2mg/ml Inj(IV/IM USE ONLY) IVP PRN (22:45)
[2018-12-08 23:10] VITALS: BP 128/70
[2018-12-09] VITALS (7 sets, daily range): BP systolic 99–128; BP diastolic 52–75
--- NOTE | 2018-12-09 00:35 | NUR ---
ED Nurse Note: Patient was admited to SDU due to sepsis, generalized weakness, severe dehydration. Patient was transfered to the unit via gurney by ACLS protocol, patient does not have any belongings. Patient AAO x1, VSS at this time, pictures were taken for bed sores, and were uploaded in to the computer.
--- NOTE | 2018-12-09 00:45 | NUR ---
NURSE NOTES: Patient arrived via gurney with RN and central services tech. Patient placed into bed room 243-2. monitoring tech placed, bed bath given linens changed. No belongings, wound care photo take and uploaded. Received report from DANICA Shirley. Will initiate plan of care.
[2018-12-09] MEDS: D5NS 1,000 ML IV SCH ×3 (02:08→18:29)
[2018-12-09 04:23] LABS: BASOPHILS % (AUTO) 0.4 % (0.0-2.0); HEMATOCRIT 30.8 % (37.0-47.0); HEMOGLOBIN 10.3 G/DL (12.0-16.0); LYMPHOCYTES % (AUTO) 12.2 % (20.0-45.0); MEAN CORPUSCULAR VOLUME 104 FL (80-99); MONOCYTES % (AUTO) 7.8 % (1.0-10.0); NEUTROPHILS % (AUTO) 79.5 % (45.0-75.0); PLATELET COUNT 237 K/UL (150-450); RED BLOOD COUNT 2.95 M/UL (4.20-5.40); RED CELL DISTRIBUTION WIDTH 11.5 % (11.6-14.8); WHITE BLOOD COUNT 10.5 K/UL (4.8-10.8)
[2018-12-09 04:27] LABS: INR 1.1 (0.9-1.1)
[2018-12-09 04:57] LABS: ALANINE AMINOTRANSFERASE 9 U/L (12-78); ALBUMIN 1.9 G/DL (3.4-5.0); ALBUMIN/GLOBULIN RATIO 0.4 (1.0-2.7); ALKALINE PHOSPHATASE 59 U/L (46-116); AMYLASE 95 U/L (25-115); ANION GAP 10 mmol/L (5-15); ASPARTATE AMINO TRANSFERASE 16 U/L (15-37); BILIRUBIN,TOTAL 0.5 MG/DL (0.2-1.0); BLOOD UREA NITROGEN 13 mg/dL (7-18); CALCIUM 8.2 MG/DL (8.5-10.1); CARBON DIOXIDE 26 MMOL/L (21-32); CHLORIDE 110 MMOL/L (98-107); CREATININE 0.6 MG/DL (0.55-1.30); SODIUM 146 MMOL/L (136-145)
[2018-12-09 05:08] LABS: POTASSIUM 2.5 MMOL/L (3.5-5.1)
--- NOTE | 2018-12-09 06:30 | NUR ---
NURSE NOTES: Left message for Dr. Neal regarding patient's potassium of 2.5 and also whether or not to keep gil catheter inserted. Average output 25ml/hour since admission. Awaiting call back.
--- NOTE | 2018-12-09 07:25 | NUR ---
HAND-OFF: Report given to DANICA Canela.
--- NOTE | 2018-12-09 08:00 | NUR ---
NURSE NOTES: Received change of shift report from Adrianna MISHRA. Pt is asleep, awakens to name/voice; pt is Polish speaking, oriented x3. Pt is on 2L of oxygen via nasal cannula with 100% O2Sat and diminished lung sounds. Pt denies pain and nausea at this time. Weak peripheral pulses are noted on palpation. Abdomen is flat, soft, nontender to touch with hypoactive bowel sounds. Archer catheter is in place, draining mildly cloudy/yellow urine. Skin has partial thickness pressure ulcer on sacral area and DTI on right ankle, sites are covered with optifoam dressings, dry/intact. Head of bed is at semi-chao's, bed locked, in lowest position with three side rails up and call light within reach. Will continue to monitor pt and follow plan of care per MD orders and protocol.
--- NOTE | 2018-12-09 10:30 | NUR ---
NURSE NOTES: Pt was seen by Dr Zhao and wound care nurse. Sacral pressure ulcer wound has been assessed and dressing changed. Pt has been repositioned with bilateral extremities elevated on pillows. VS stable.
--- NOTE | 2018-12-09 10:46 | Diagnostic Imaging Report ---
Indication: Cough Comparison: 12/01/2016 A single view chest radiograph was obtained. Findings: There is a retrocardiac density silhouetting out the left hemidiaphragm. The lung volumes are increased. Heart is normal in size. Aorta is mildly calcified. Bones are osteopenic. IMPRESSION: Retrocardiac opacification likely pneumonia or atelectasis. COPD
--- NOTE | 2018-12-09 11:02 | NUR ---
RD ASSESSMENT & RECOMMENDATIONS SEE CARE ACTIVITY FOR COMPLETE ASSESSMENT DAILY ESTIMATED NEEDS: Needs based on underweight, wounds, wasting; 30.5 30-40 kcals/kg 915- 1,220 total kcals 1.25-2 g protein/kg 38- 61 g total protein 25-30 mL / kcal mL/kg 763- 915 total fluid mLs NUTRITION DIAGNOSIS: Increased kcal,protein, and MVI needs r/t wound healing, underweight status,and wasting AEB sacral and right ankle wounds, 67% of [place] Body Weight, with severe generalized muscle and fat wasting. CURRENT DIET:NPO PO DIET RECOMMENDATIONS: Liberalized, soft, regular diet as medically able (texture per [employer]ER) ADDITIONAL RECOMMENDATIONS: Ht 5'0", wt 30.5kg (67#) [employer] eval when appropriate for diet Wound care: Kyler BID, MVI w min, vit C 500mg Glucerna TID with meals NISS with meals for glycemic control Weekly wts due to severe underweight status Monitor lyte+ hydration status daily, replete PRN (K 2.5, Na 146)
--- NOTE | 2018-12-09 12:00 | NUR ---
NURSE NOTES: Pt was seen by Dr Neal. Order was received to change code status to DNR/DNI per pt's son's request. Charge nurse notified. KCL IV 10meq x4 bags has been infused. ST eval is being done at bedside by . Pt was also seen by Dr Jorgensen. Pt has been cleaned and repositioned with bilateral extremities elevated on pillows.
--- NOTE | 2018-12-09 12:29 | History and Physical ---
History of Present Illness General Date patient seen: Dec 09, 2018 Reason for Hospitalization: Gastrointestinal Bleed Present Illness HPI 88 year old female with hx of dementia, cachexia, long-term residnet brought in by paramedics with CC of lack of hemoptysis, with lots of coughing and some phlegm. She has been refusing to eat at the long-term for the last two weeks. S he is a poor historian and can't provide more history. She looked comfortable on admission. She is Allergies: Coded Allergies: No Known Allergies (Unverified , 03/08/12) Medication History Scheduled Calcium Carbonate/Vitamin D3 (Oyster Shell 500 Mg + Vit D Tb), 1 EACH PO BID, ( Reported) Celecoxib* (Celebrex*), 200 MG ORAL DAILY, (Reported) Ferrous Sulfate* (Ferrous Sulfate*), 325 MG ORAL DAILY, (Reported) Folic Acid* (Folic Acid*), 1 MG ORAL DAILY, (Reported) Megestrol Acetate (Megestrol Acetate), 40 MG PO BID, (Reported) No Known Medications* (NKM - No Known Medications*), 0 ., (Reported) Scheduled PRN Acetaminophen* (Acetaminophen 325MG Tablet*), 650 MG ORAL Q4H PRN Polyethylene Glycol 3350* (Miralax*), 17 GM ORAL HSPRN PRN Zolpidem Tartrate* (Ambien*), 5 MG ORAL HSPRN PRN Miscellaneous Medications Memantine HCl/Donepezil HCl (Namzaric 28 mg-10 mg Capsule), 1 EACH PO, (Reported ) Patient History Healthcare decision maker Addy Pepper Resuscitation status Full Code Advanced Directive on File Past Medical/Surgical History Past Medical/Surgical History: (1) Alzheimer's dementia (2) Advanced age (3) Protein-calorie malnutrition, severe Review of Systems All Other Systems: negative except mentioned in HPI Physical Exam General Appearance: cachetic, thin Lines, tubes and drains: peripheral HEENT: normocephalic, atraumatic Neck: non-tender, normal alignment Respiratory/Chest: chest wall non-tender, normal breath sounds Breasts: no masses Cardiovascular/Chest: normal rate Abdomen: normal bowel sounds Genitourinary/Rectal: normal genital exam Extremities: normal range of motion, non-tender Last 24 Hour Vital Signs Date Time Temp Pulse Resp B/P (MAP) Pulse Ox O2 Delivery O2 Flow Rate FiO2 12/09/18 08:04 89 12/09/18 08:00 97.3 76 18 109/58 (75) 100 12/09/18 04:00 Nasal Cannula 2.0 12/09/18 04:00 97.9 74 16 99/52 (68) 100 12/09/18 03:26 75 12/09/18 01:18 89 12/09/18 00:45 97.0 87 16 124/74 (91) 100 12/09/18 00:45 Nasal Cannula 2.0 12/09/18 00:35 99.2 88 20 128/70 96 Nasal Cannula 2.0 12/09/18 00:35 99.2 88 20 128/70 96 Nasal Cannula 2.0 12/08/18 23:10 99.2 88 20 128/70 96 Nasal Cannula 2.0 12/08/18 21:10 98.2 20 125/67 96 Nasal Cannula 2.0 12/08/18 21:10 138 20 Nasal Cannula 2.0 12/08/18 20:58 98.2 138 20 125/67 (86) 96 Nasal Cannula 2.0 Intake and Output 12/08/18 12/09/18 18:59 06:59 Intake Total 386.84 ml Output Total 250 ml Balance 136.84 ml Intake IV Total 386.84 ml Output Urine Total 250 ml Laboratory Tests Test 12/08/18 21:15 12/08/18 21:20 12/08/18 21:36 12/09/18 03:05 White Blood Count 8.8 K/UL (4.8-10.8) 10.5 K/UL (4.8-10.8) Red Blood Count 3.70 M/UL (4.20-5.40) L 2.95 M/UL (4.20-5.40) L Hemoglobin 13.0 G/DL (12.0-16.0) 10.3 G/DL (12.0-16.0) L Hematocrit 38.0 % (37.0-47.0) 30.8 % (37.0-47.0) L Mean Corpuscular Volume 103 FL (80-99) H 104 FL (80-99) H Mean Corpuscular Hemoglobin 35.1 PG (27.0-31.0) H 35.0 PG (27.0-31.0) H Mean Corpuscular Hemoglobin Concent 34.1 G/DL (32.0-36.0) 33.5 G/DL (32.0-36.0) Red Cell Distribution Width 10.9 % (11.6-14.8) L 11.5 % (11.6-14.8) L Platelet Count 256 K/UL (150-450) 237 K/UL (150-450) Mean Platelet Volume 5.9 FL (6.5-10.1) L 5.7 FL (6.5-10.1) L Neutrophils (%) (Auto) 82.3 % (45.0-75.0) H 79.5 % (45.0-75.0) H Lymphocytes (%) (Auto) 7.8 % (20.0-45.0) L 12.2 % (20.0-45.0) L Monocytes (%) (Auto) 9.0 % (1.0-10.0) 7.8 % (1.0-10.0) Eosinophils (%) (Auto) 0.0 % (0.0-3.0) 0.0 % (0.0-3.0) Basophils (%) (Auto) 0.9 % (0.0-2.0) 0.4 % (0.0-2.0) Prothrombin Time 11.0 SEC (9.30-11.50) 11.9 SEC (9.30-11.50) H Prothromb Time International Ratio 1.0 (0.9-1.1) 1.1 (0.9-1.1) Activated Partial Thromboplast Time 30 SEC (23-33) 35 SEC (23-33) H Sodium Level 144 MMOL/L (136-145) 146 MMOL/L (136-145) H Potassium Level 3.0 MMOL/L (3.5-5.1) L 2.5 MMOL/L (3.5-5.1) *L Chloride Level 103 MMOL/L (98-107) 110 MMOL/L (98-107) H Carbon Dioxide Level 29 MMOL/L (21-32) 26 MMOL/L (21-32) Anion Gap 12 mmol/L (5-15) 10 mmol/L (5-15) Blood Urea Nitrogen 14 mg/dL (7-18) 13 mg/dL (7-18) Creatinine 0.7 MG/DL (0.55-1.30) 0.6 MG/DL (0.55-1.30) Estimat Glomerular Filtration Rate mL/min (>60) mL/min (>60) Glucose Level 166 MG/DL (74-106) H 176 MG/DL (74-106) H Lactic Acid Level 1.60 mmol/L (0.4-2.0) Calcium Level 9.7 MG/DL (8.5-10.1) 8.2 MG/DL (8.5-10.1) L Phosphorus Level 2.9 MG/DL (2.5-4.9) Magnesium Level 1.7 MG/DL (1.8-2.4) L Total Bilirubin 0.6 MG/DL (0.2-1.0) 0.5 MG/DL (0.2-1.0) Aspartate Amino Transf (AST/SGOT) 24 U/L (15-37) 16 U/L (15-37) Alanine Aminotransferase (ALT/SGPT) 14 U/L (12-78) 9 U/L (12-78) L Alkaline Phosphatase 74 U/L (46-116) 59 U/L (46-116) Total Creatine Kinase 33 U/L (26-308) Creatine Kinase MB 0.5 NG/ML (0.0-3.6) Creatine Kinase MB Relative Index 1.5 Troponin I 0.002 ng/mL (0.000-0.056) Pro-B-Type Natriuretic Peptide 1584 pg/mL (0-125) H Total Protein 7.9 G/DL (6.4-8.2) 6.4 G/DL (6.4-8.2) Albumin 2.4 G/DL (3.4-5.0) L 1.9 G/DL (3.4-5.0) L Globulin 5.5 g/dL 4.5 g/dL Albumin/Globulin Ratio 0.4 (1.0-2.7) L 0.4 (1.0-2.7) L Lipase 148 U/L (73-393) 146 U/L (73-393) Urine Color Pale yellow Urine Appearance Cloudy Urine pH 5 (4.5-8.0) Urine Specific [place] 1.020 (1.005-1.035) Urine Protein 3+ (NEGATIVE) H Urine Glucose (UA) Negative (NEGATIVE) Urine Ketones 3+ (NEGATIVE) H Urine Blood 4+ (NEGATIVE) H Urine Nitrite Negative (NEGATIVE) Urine Bilirubin 1+ (NEGATIVE) H Urine Ictotest Negative (NEGATIVE) Urine Urobilinogen 4 MG/DL (0.0-1.0) H Urine Leukocyte Esterase 3+ (NEGATIVE) H Urine RBC Tntc /HPF (0 - 2) H Urine WBC Tntc /HPF (0 - 2) H Urine Squamous Epithelial Cells Few /LPF (NONE/OCC) Urine Bacteria Many /HPF (NONE) H Arterial Blood pH 7.467 (7.350-7.450) Arterial Blood Partial Pressure CO2 34.4 mmHg (35.0-45.0) L Arterial Blood Partial Pressure O2 75.0 mmHg (75.0-100.0) Arterial Blood HCO3 24.3 mmol/L (22.0-26.0) Arterial Blood Oxygen Saturation 95.8 % (95-100) Arterial Blood Base Excess 1.0 (-2-2) Jayme Test Positive Amylase Level 95 U/L (25-115) Height (Feet): 5 Height (Inches): 4.00 Weight (Pounds): 115 Medications Current Medications Medications (Trade) Dose Ordered Sig/Lisa Route PRN Reason Start Time Stop Time Status Last Admin Dose Admin Acetaminophen (Tylenol) 650 mg Q4H PRN ORAL fever 12/08/18 22:45 01/07/19 22:44 Dextrose (Dextrose 50%) 25 ml Q30M PRN IV Hypoglycemia 12/08/18 22:45 01/07/19 22:44 Dextrose (Dextrose 50%) 50 ml Q30M PRN IV Hypoglycemia 12/08/18 22:45 01/07/19 22:44 Dextrose/Sodium Chloride 1,000 ml @ 100 mls/hr Q10H IV 12/09/18 02:00 01/08/19 01:59 12/09/18 09:58 Diphenhydramine HCl (Benadryl) 25 mg Q6H PRN ORAL Itching/Pruritis 12/08/18 22:45 01/07/19 22:44 Morphine Sulfate (Morphine Sulfate) 2 mg Q4H PRN IVP severe Pain (Pain Scale 7-10) 12/08/18 22:45 12/15/18 22:44 Nitroglycerin (Ntg) 0.4 mg Q5M X 3 DOSES PRN SL Prn Chest Pain 12/08/18 22:45 01/07/19 22:44 Ondansetron HCl (Zofran) 4 mg Q6H PRN IVP Nausea & Vomiting 12/08/18 22:45 01/07/19 22:44 Polyethylene Glycol (Miralax) 17 gm HSPRN PRN ORAL Constipation 12/08/18 22:45 01/07/19 22:44 Temazepam (Restoril) 15 mg HSPRN PRN ORAL Insomnia 12/08/18 22:45 12/15/18 22:44 Assessment/Plan Problem List: (1) Pneumonia ICD Codes: J18.9 - Pneumonia, unspecified organism SNOMED: 415103090 Qualifiers: Qualified Codes: J18.1 - Lobar pneumonia, unspecified organism (2) UTI (urinary tract infection) ICD Codes: N39.0 - Urinary tract infection, site not specified SNOMED: 10007495 Qualifiers: Qualified Codes: N30.01 - Acute cystitis with hematuria (3) Protein-calorie malnutrition, severe ICD Codes: E43 - Unspecified severe protein-calorie malnutrition SNOMED: 334000865 (4) Advanced age ICD Codes: R54 - Age-related physical debility SNOMED: 95450606 (5) Alzheimer's dementia ICD Codes: G30.9 - Alzheimer's disease, unspecified; F02.80 - Dementia in other diseases classified elsewhere without behavioral disturbance SNOMED: 84962386 (6) At high risk for aspiration ICD Codes: Z91.89 - Other specified personal risk factors, not elsewhere classified SNOMED: 793883646 Assessment/Plan: check sputum chest pt iv abx check urine cultures swallow evaluation K supplement I talked to pts son, He doesn't want any Gtube feeding or CPR. We will change the code to DNR. Rom Neal MD Dec 09, 2018 12:29
[2018-12-09] MEDS ORDERED: Promethazine/Codeine 5ml UD ORAL PRN ×2 (12:30→18:30)
--- NOTE | 2018-12-09 12:57 | Diagnostic Imaging Report ---
APPROVED REPORT CPT Code: 45337 Present Symptoms Comments: R/O DVT No signs of DVT seen sonographically. Patent CFV, SFV(prox,mid, dist), Pop V, Calf veins bilaterally
--- NOTE | 2018-12-09 13:46 | NUR ---
ST NOTES: REFERRED FOR SWALLOW EVAL BY DR SCHULER, SEE FULL REPORT. DYSPHAGIA RISK FACTORS FOR THIS 88 Y.O. CROATIAN SPEAKING FEMALE: ACUTE L LL PNEUMONIA, SEPSIS, TACHY, WEAK, AND DEHYDRATED. VOMITED BLOOD IN SNF AND ER BUT NOT RECENTLY. H/O DEMENTIA, DYSPHAGIA, ADULT FTT , CACHEXIA, POOR APPETITE (MEGACE NOT HELPFUL), REFUSING PO, GERD, ADVANCED AGE, DM, COPD, HTN, CHF, CAD. POLST NO TF PER SON SEEN 2017 FOR SWALLOW EVAL 2 YEARS AGO. HAD MILD DYSPHAGIA BUT NO OVERT ASP (HAD RISK AND MOD BARIUM SWALLOW STUDY REC NOT COMPLETED DUE TO SCHEDULE CONFLICTS). PLACED ON [facility] SOFT FINELY CHOPPED DIET AND THIN LIQUIDS. AT SNF ON A FORT HIGH PROTEIN DIET WITH REGULAR TEXTURE AND THIN LIQUIDS HPN FOR LUNCH AND BREAKFAST (INSTEAD OF MILK). CURRENTLY NPO. PATIENT IS ALERT BUT NOT VERBALIZING. HAD GOOD DENTITION AND ON 2 LITERS NC. INITIAL IMPRESSIONS: S/S OF A MILD-MODERATE OROPHARYNGEAL DYSPHAGIA WITH INCREASED OVERALL TRANSIT TIMES. NO OVERT S/S OF ASPIRATION BUT HAS HIGH RISK OF SILENT ASPIRATION (L LL PNA NOW AND HAS DEMENTIA) GIVEN TSP PUREED TOOK 10 SECONDS PRIOR TO SWALLOWING (WITH FAIR HYOLARYNGEAL EXCURSION), AND THEN SWALLOWED AGAIN (OP RESIDUE). GIVEN THIN LIQUIDS VIA STRAW SEQUENTIAL SIPS (3 OZ WATER CHIQUITA SWALLOW PROTOCOL), ONLY ABLE TO TAKE 3 SMALL SIPS AND THEN NEEDED TO SWALLOW WITH 2 SECOND DELAYS WITH A SLIGHT INCREASE IN RESP RATE AND NEEDED TO REST. NO ORAL RESIDUE NOR OVERT ASP (BUT HIGH RISK WITH SEQUENTIAL SIPS) RECOMMENDATIONS: GIVEN THAT THE PATIENT'S SON WANTS HER TO HAVE PO FOR QUALITY OF LIFE AND COMFORT FEEDING (DNR STATUS NOW), CONSIDER INITIATING A LIQUIFIED PUREED LIKE NECTAR THICK SOUP DIET BUT OK TO HAVE THIN LIQUIDS (TSP ONLY FOR NOW) WITH POSTED ASPIRATION AND REFLUX PRECAUTIONS WITH ONE TO ONE FEEDING. PER RD OK TO LIBERALIZE HER DIET BUT SEND GLUCERNA ONE CAN TID CONSIDER CALORIE COUNT 72 HOURS. EDUCATED/TRAINED STAFF (KAHLIL MISHRA) IN POSTED PRECAUTIONS. LEFT MESSAGE WITH DR SCHULER
[2018-12-09] MEDS ORDERED: cefTRIAXone 1 GM in D5W 55 ML IVPB SCH (14:00)
--- NOTE | 2018-12-09 14:16 | GI Initial Consult Note ---
History of Present Illness General Date patient seen: Dec 09, 2018 Time patient seen: 14:14 Reason for Hospitalization: Gastrointestinal Bleed Present Illness HPI HPI 88 year old female with hx of dementia, cachexia, residential residnet brought in by paramedics with CC of lack of hemoptysis, with lots of coughing and some phlegm. She has been refusing to eat at the residential for the last two weeks. S he is a poor historian and can't provide more history. She looked comfortable on admission. She is Allergies: Coded Allergies: No Known Allergies (Unverified , 03/08/12) Medication History Scheduled Calcium Carbonate/Vitamin D3 (Oyster Shell 500 Mg + Vit D Tb), 1 EACH PO BID, ( Reported) Celecoxib* (Celebrex*), 200 MG ORAL DAILY, (Reported) Ferrous Sulfate* (Ferrous Sulfate*), 325 MG ORAL DAILY, (Reported) Folic Acid* (Folic Acid*), 1 MG ORAL DAILY, (Reported) Megestrol Acetate (Megestrol Acetate), 40 MG PO BID, (Reported) No Known Medications* (NKM - No Known Medications*), 0 ., (Reported) Scheduled PRN Acetaminophen* (Acetaminophen 325MG Tablet*), 650 MG ORAL Q4H PRN Polyethylene Glycol 3350* (Miralax*), 17 GM ORAL HSPRN PRN Zolpidem Tartrate* (Ambien*), 5 MG ORAL HSPRN PRN Miscellaneous Medications Memantine HCl/Donepezil HCl (Namzaric 28 mg-10 mg Capsule), 1 EACH PO, (Reported ) Patient History Healthcare decision maker Addy Pepper Resuscitation status Full Code Advanced Directive on File Past Medical/Surgical History Past Medical/Surgical History: (1) Alzheimer's dementia (2) Advanced age (3) Protein-calorie malnutrition, severe Home Meds Active Scripts Zolpidem Tartrate* (AMBIEN*) 5 Mg Tablet, 5 MG ORAL HSPRN PRN for 30 Days, TAB Prov:Rom Neal MD 12/04/16 Polyethylene Glycol 3350* (MIRALAX*) 17 Gm Powd.pack, 17 GM ORAL HSPRN PRN for 30 Days, PACK Prov:Rom Neal MD 12/04/16 Acetaminophen* (ACETAMINOPHEN 325MG TABLET*) 325 Mg Tablet, 650 MG ORAL Q4H PRN for 30 Days, TAB Prov:Rom Neal MD 12/04/16 Reported Medications Memantine HCl/Donepezil HCl (Namzaric 28 mg-10 mg Capsule) 1 Each Cap.spr.24, 1 EACH PO, CAP 12/01/16 Calcium Carbonate/Vitamin D3 (OYSTER SHELL 500 MG + VIT D TB) 1 Each Tablet, 1 EACH PO BID, TAB 12/01/16 Celecoxib* (CELEBREX*) 200 Mg Capsule, 200 MG ORAL DAILY, CAP 12/01/16 Megestrol Acetate (Megestrol Acetate) 40 Mg Tablet, 40 MG PO BID, #10 TAB 0 Refills 12/01/16 Folic Acid* (FOLIC ACID*) 1 Mg Tablet, 1 MG ORAL DAILY, TAB 12/01/16 Ferrous Sulfate* (FERROUS SULFATE*) 325 Mg Tablet, 325 MG ORAL DAILY, #30 TAB 0 Refills 12/01/16 No Known Medications* (NKM - No Known Medications*) ., 0 . 03/08/12 Allergies: Coded Allergies: No Known Allergies (Unverified , 03/08/12) Physical Exam Vital Signs Date Time Temp Pulse Resp B/P (MAP) Pulse Ox O2 Delivery O2 Flow Rate FiO2 12/08/18 20:58 98.2 138 20 125/67 (86) 96 Nasal Cannula 2.0 Labs Laboratory Tests Test 12/08/18 21:15 12/08/18 21:20 12/08/18 21:36 12/09/18 03:05 White Blood Count 8.8 K/UL (4.8-10.8) 10.5 K/UL (4.8-10.8) Red Blood Count 3.70 M/UL (4.20-5.40) L 2.95 M/UL (4.20-5.40) L Hemoglobin 13.0 G/DL (12.0-16.0) 10.3 G/DL (12.0-16.0) L Hematocrit 38.0 % (37.0-47.0) 30.8 % (37.0-47.0) L Mean Corpuscular Volume 103 FL (80-99) H 104 FL (80-99) H Mean Corpuscular Hemoglobin 35.1 PG (27.0-31.0) H 35.0 PG (27.0-31.0) H Mean Corpuscular Hemoglobin Concent 34.1 G/DL (32.0-36.0) 33.5 G/DL (32.0-36.0) Red Cell Distribution Width 10.9 % (11.6-14.8) L 11.5 % (11.6-14.8) L Platelet Count 256 K/UL (150-450) 237 K/UL (150-450) Mean Platelet Volume 5.9 FL (6.5-10.1) L 5.7 FL (6.5-10.1) L Neutrophils (%) (Auto) 82.3 % (45.0-75.0) H 79.5 % (45.0-75.0) H Lymphocytes (%) (Auto) 7.8 % (20.0-45.0) L 12.2 % (20.0-45.0) L Monocytes (%) (Auto) 9.0 % (1.0-10.0) 7.8 % (1.0-10.0) Eosinophils (%) (Auto) 0.0 % (0.0-3.0) 0.0 % (0.0-3.0) Basophils (%) (Auto) 0.9 % (0.0-2.0) 0.4 % (0.0-2.0) Prothrombin Time 11.0 SEC (9.30-11.50) 11.9 SEC (9.30-11.50) H Prothromb Time International Ratio 1.0 (0.9-1.1) 1.1 (0.9-1.1) Activated Partial Thromboplast Time 30 SEC (23-33) 35 SEC (23-33) H Sodium Level 144 MMOL/L (136-145) 146 MMOL/L (136-145) H Potassium Level 3.0 MMOL/L (3.5-5.1) L 2.5 MMOL/L (3.5-5.1) *L Chloride Level 103 MMOL/L (98-107) 110 MMOL/L (98-107) H Carbon Dioxide Level 29 MMOL/L (21-32) 26 MMOL/L (21-32) Anion Gap 12 mmol/L (5-15) 10 mmol/L (5-15) Blood Urea Nitrogen 14 mg/dL (7-18) 13 mg/dL (7-18) Creatinine 0.7 MG/DL (0.55-1.30) 0.6 MG/DL (0.55-1.30) Estimat Glomerular Filtration Rate mL/min (>60) mL/min (>60) Glucose Level 166 MG/DL (74-106) H 176 MG/DL (74-106) H Lactic Acid Level 1.60 mmol/L (0.4-2.0) Calcium Level 9.7 MG/DL (8.5-10.1) 8.2 MG/DL (8.5-10.1) L Phosphorus Level 2.9 MG/DL (2.5-4.9) Magnesium Level 1.7 MG/DL (1.8-2.4) L Total Bilirubin 0.6 MG/DL (0.2-1.0) 0.5 MG/DL (0.2-1.0) Aspartate Amino Transf (AST/SGOT) 24 U/L (15-37) 16 U/L (15-37) Alanine Aminotransferase (ALT/SGPT) 14 U/L (12-78) 9 U/L (12-78) L Alkaline Phosphatase 74 U/L (46-116) 59 U/L (46-116) Total Creatine Kinase 33 U/L (26-308) Creatine Kinase MB 0.5 NG/ML (0.0-3.6) Creatine Kinase MB Relative Index 1.5 Troponin I 0.002 ng/mL (0.000-0.056) Pro-B-Type Natriuretic Peptide 1584 pg/mL (0-125) H Total Protein 7.9 G/DL (6.4-8.2) 6.4 G/DL (6.4-8.2) Albumin 2.4 G/DL (3.4-5.0) L 1.9 G/DL (3.4-5.0) L Globulin 5.5 g/dL 4.5 g/dL Albumin/Globulin Ratio 0.4 (1.0-2.7) L 0.4 (1.0-2.7) L Lipase 148 U/L (73-393) 146 U/L (73-393) Urine Color Pale yellow Urine Appearance Cloudy Urine pH 5 (4.5-8.0) Urine Specific [place] 1.020 (1.005-1.035) Urine Protein 3+ (NEGATIVE) H Urine Glucose (UA) Negative (NEGATIVE) Urine Ketones 3+ (NEGATIVE) H Urine Blood 4+ (NEGATIVE) H Urine Nitrite Negative (NEGATIVE) Urine Bilirubin 1+ (NEGATIVE) H Urine Ictotest Negative (NEGATIVE) Urine Urobilinogen 4 MG/DL (0.0-1.0) H Urine Leukocyte Esterase 3+ (NEGATIVE) H Urine RBC Tntc /HPF (0 - 2) H Urine WBC Tntc /HPF (0 - 2) H Urine Squamous Epithelial Cells Few /LPF (NONE/OCC) Urine Bacteria Many /HPF (NONE) H Arterial Blood pH 7.467 (7.350-7.450) Arterial Blood Partial Pressure CO2 34.4 mmHg (35.0-45.0) L Arterial Blood Partial Pressure O2 75.0 mmHg (75.0-100.0) Arterial Blood HCO3 24.3 mmol/L (22.0-26.0) Arterial Blood Oxygen Saturation 95.8 % (95-100) Arterial Blood Base Excess 1.0 (-2-2) Jayme Test Positive Amylase Level 95 U/L (25-115) General Appearance: no apparent distress EENT: normal ENT inspection Neck: supple Respiratory: decreased breath sounds Cardiovascular: normal rate Gastrointestinal: normal inspection, non tender, soft Current Medications Current Medications Medications (Trade) Dose Ordered Sig/Lisa Route PRN Reason Start Time Stop Time Status Last Admin Dose Admin Acetaminophen (Tylenol) 650 mg Q4H PRN ORAL fever 12/08/18 22:45 01/07/19 22:44 Ceftriaxone Sodium 1 gm/ Dextrose 55 ml @ 110 mls/hr Q24H IVPB 12/09/18 14:00 12/16/18 13:59 Dextrose (Dextrose 50%) 25 ml Q30M PRN IV Hypoglycemia 12/08/18 22:45 01/07/19 22:44 Dextrose (Dextrose 50%) 50 ml Q30M PRN IV Hypoglycemia 12/08/18 22:45 01/07/19 22:44 Dextrose/Sodium Chloride 1,000 ml @ 100 mls/hr Q10H IV 12/09/18 02:00 01/08/19 01:59 12/09/18 09:58 Diphenhydramine HCl (Benadryl) 25 mg Q6H PRN ORAL Itching/Pruritis 12/08/18 22:45 01/07/19 22:44 Morphine Sulfate (Morphine Sulfate) 2 mg Q4H PRN IVP severe Pain (Pain Scale 7-10) 12/08/18 22:45 12/15/18 22:44 Nitroglycerin (Ntg) 0.4 mg Q5M X 3 DOSES PRN SL Prn Chest Pain 12/08/18 22:45 01/07/19 22:44 Ondansetron HCl (Zofran) 4 mg Q6H PRN IVP Nausea & Vomiting 12/08/18 22:45 01/07/19 22:44 Pantoprazole (Protonix) 40 mg EVERY 12 HOURS IV 12/09/18 21:00 01/08/19 20:59 Polyethylene Glycol (Miralax) 17 gm HSPRN PRN ORAL Constipation 12/08/18 22:45 01/07/19 22:44 Promethazine HCl/ Codeine (Phenergan with Codeine) 5 ml Q4H PRN ORAL For Cough 12/09/18 12:30 01/08/19 12:29 Temazepam (Restoril) 15 mg HSPRN PRN ORAL Insomnia 12/08/18 22:45 12/15/18 22:44 GI: Plan Problems: (1) GIB (gastrointestinal bleeding) (2) Pneumonia (3) Alzheimer's dementia Plan significant drop in H&H family dont want PEG plan EGD tomorrow to eval for upper GIB ppi fu H&H Ahsan Jorgensen MD Dec 09, 2018 14:16
--- NOTE | 2018-12-09 14:48 | NUR ---
NURSE NOTES:WOUND CARE NOTES:Pt presented on admission with resolving Full thickness sacral pressure injury. Base of wound noted to have pink epithelialized borders with scattered small wounds that are moist and viable within base of wound. Coccygeal bone protrudes and skin is blanched over coccyx(L)7cm x (W)10.5cm. An area of hyperpigmentation noted to lateral R heel from previous wound. Bilat heels are boggy but each heel easily blanches. Discussed skin findings with pt's son. Son has also been advised of potential risks for sacrococcygeal area to further decline secondary to protruding bony prominence. Son informed of initiatives being implemented to prevent further skin breakdown. Tx.Plan: Apply Moisture Barrier Paste to Sacrum. Cover with Optifoam drsg. Change every 3 days and prn. Apply Cavilon Skin Barrier to both heels and lateral R malleolus. Cover each site with Optifoam drsg. Change every 7 days and prn . Apply Cavilon to bony prominences as needed and cover with Optifoam for protection. Reposition at leqast every 2hours or as tolerated. Off-load heels with pillow. Position with pillow between knees. APM/ZOHRA Mattress overlay.
--- NOTE | 2018-12-09 14:59 | NUR ---
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 TO ER CC HEMOPTYSIS AND SOB, SPO2 96% ON 2L SI SEPSIS/TACHYCARDIA/WEAKNESS/DEHYDRATION T 98.3, RR 20, HR- 138, BP- 125/67 K- 3.5, RBC 3.7 URINE + FOR PROTEIN, LEUKOCYTES, BLOOD CXR- LIKELY PNA OR ATELECTASIS IS NS 100ML IV CEFEPIME IV VANCOMYCIN IV AZITHROMYCIN IV ADMITTED TO [facility]
--- NOTE | 2018-12-09 15:22 | NUR ---
NURSE NOTES: Spoke with pt's son/next of kin for consent for EGD procedure ordered by Dr Jorgensen. Per pt's son, he needs to think about it and will make his decision regarding the consent by tomorrow morning 10am. Dr Jorgensen has been notified and charge nurse aware.
--- NOTE | 2018-12-09 17:00 | NUR ---
NURSE NOTES: Order in place to transfer pt to [facility], awaiting for room/bed availability. Pt is resting in bed in stable condition/VS and in no apparent distress.
--- NOTE | 2018-12-09 18:15 | NUR ---
TRANSFER TO FLOOR: Patient transferred to Med Surg from [facility] per Dr Neal's order. Pt was transferred via hospital bed. Tele monitor was removed and returned to the ekg monitor tech. Report was given to Carlin MISHRA. Pt has no belongings with her; list was signed with the receiving nurse in front of the pt. Pt has sacral pressure wound, which along with the rest of the report was endorsed to the receiving nurse. Pt was transferred in stable condition. Also, spoke with the pt's son over the phone and informed him regarding the transfer.
--- NOTE | 2018-12-09 18:20 | NUR ---
NURSE NOTES: Received pt from [facility] via hospital bed. On NC 2L/min. AAO x 3. No c/o of pain/distress. IV on R AC intact and patent, with saline lock. L AC intact and patent running D5NS @ 100 ml/hr. Stable vital sign with BP 112/66, KS 87, SpO2 99%. Archer catheter noted. Picture taken on the sacral area. Pt has no belongings. Orientation on the new unit given. Side rails x 2. Bed in the lowest, locked, and alarm on. Call light within reach. Will continue to monitor
[2018-12-09] MEDS ORDERED: Morphine Sulfate 2mg/ml Inj(IV/IM USE ONLY) IVP PRN (18:30)
[2018-12-09] MEDS ORDERED: Miralax 17gm pkt ORAL PRN (18:30)
[2018-12-09] MEDS ORDERED: Nitroglycerin Subl 0.4mg tab SL PRN (18:30)
--- NOTE | 2018-12-09 19:12 | NUR ---
HAND-OFF: Report given to DANICA Montgomery.
--- NOTE | 2018-12-09 19:29 | Consultation ---
History of Present Illness General Date patient seen: Dec 09, 2018 Chief Complaint: Gastrointestinal Bleed Present Illness HPI 88 year old male with multiple medical comorbidities presented with poor oral intake, decubitus ulcer, abnormal labs. Admitted for care and management. Surgery called to evaluate and assist with care. patient seen, chart reviewed, patient examined. Patient alert and awake but non verbal during exam. with assistance of nursing staff wound dressings changed this AM Allergies: Coded Allergies: No Known Allergies (Unverified , 03/08/12) Medication History Scheduled Calcium Carbonate/Vitamin D3 (Oyster Shell 500 Mg + Vit D Tb), 1 EACH PO BID, ( Reported) Celecoxib* (Celebrex*), 200 MG ORAL DAILY, (Reported) Ferrous Sulfate* (Ferrous Sulfate*), 325 MG ORAL DAILY, (Reported) Folic Acid* (Folic Acid*), 1 MG ORAL DAILY, (Reported) Megestrol Acetate (Megestrol Acetate), 40 MG PO BID, (Reported) No Known Medications* (NKM - No Known Medications*), 0 ., (Reported) Scheduled PRN Acetaminophen* (Acetaminophen 325MG Tablet*), 650 MG ORAL Q4H PRN Polyethylene Glycol 3350* (Miralax*), 17 GM ORAL HSPRN PRN Zolpidem Tartrate* (Ambien*), 5 MG ORAL HSPRN PRN Miscellaneous Medications Memantine HCl/Donepezil HCl (Namzaric 28 mg-10 mg Capsule), 1 EACH PO, (Reported ) Patient History Limited by: medical condition History Provided By: Medical Record, PMD Healthcare decision maker Addy Pepper Resuscitation status Full Code Advanced Directive on File Past Medical/Surgical History Past Medical/Surgical History: (1) At high risk for aspiration (2) GIB (gastrointestinal bleeding) (3) Dementia (4) Protein-calorie malnutrition, severe (5) Sepsis (6) Advanced age (7) UTI (urinary tract infection) (8) Alzheimer's dementia (9) Pneumonia Review of Systems ROS Narrative unable to obtain given medical condition Physical Exam General Appearance: no apparent distress Lines, tubes and drains: peripheral HEENT: mucous membranes moist Neck: normal inspection Respiratory/Chest: normal breath sounds, no respiratory distress, no accessory muscle use Cardiovascular/Chest: regular rhythm Abdomen: soft, no organomegaly, no mass Extremities: normal inspection Skin Exam: warm/dry Neurologic: alert Last 24 Hour Vital Signs Date Time Temp Pulse Resp B/P (MAP) Pulse Ox O2 Delivery O2 Flow Rate FiO2 12/09/18 16:00 Nasal Cannula 2.0 12/09/18 16:00 98.2 83 18 107/61 (76) 99 12/09/18 16:00 78 12/09/18 12:00 Nasal Cannula 2.0 12/09/18 12:00 97.5 77 18 112/62 (79) 100 12/09/18 11:44 91 12/09/18 08:04 89 12/09/18 08:00 97.3 76 18 109/58 (75) 100 12/09/18 08:00 Nasal Cannula 2.0 12/09/18 04:00 Nasal Cannula 2.0 12/09/18 04:00 97.9 74 16 99/52 (68) 100 12/09/18 03:26 75 12/09/18 01:18 89 12/09/18 00:45 97.0 87 16 124/74 (91) 100 12/09/18 00:45 Nasal Cannula 2.0 12/09/18 00:35 99.2 88 20 128/70 96 Nasal Cannula 2.0 12/09/18 00:35 99.2 88 20 128/70 96 Nasal Cannula 2.0 12/08/18 23:10 99.2 88 20 128/70 96 Nasal Cannula 2.0 12/08/18 21:10 98.2 20 125/67 96 Nasal Cannula 2.0 12/08/18 21:10 138 20 Nasal Cannula 2.0 12/08/18 20:58 98.2 138 20 125/67 (86) 96 Nasal Cannula 2.0 Intake and Output 12/08/18 12/09/18 19:00 07:00 Intake Total 486.84 ml Output Total 250 ml Balance 236.84 ml IV Total 486.84 ml Output Urine Total 250 ml Laboratory Tests Test 12/08/18 21:15 12/08/18 21:20 12/08/18 21:36 12/09/18 03:05 White Blood Count 8.8 K/UL (4.8-10.8) 10.5 K/UL (4.8-10.8) Red Blood Count 3.70 M/UL (4.20-5.40) L 2.95 M/UL (4.20-5.40) L Hemoglobin 13.0 G/DL (12.0-16.0) 10.3 G/DL (12.0-16.0) L Hematocrit 38.0 % (37.0-47.0) 30.8 % (37.0-47.0) L Mean Corpuscular Volume 103 FL (80-99) H 104 FL (80-99) H Mean Corpuscular Hemoglobin 35.1 PG (27.0-31.0) H 35.0 PG (27.0-31.0) H Mean Corpuscular Hemoglobin Concent 34.1 G/DL (32.0-36.0) 33.5 G/DL (32.0-36.0) Red Cell Distribution Width 10.9 % (11.6-14.8) L 11.5 % (11.6-14.8) L Platelet Count 256 K/UL (150-450) 237 K/UL (150-450) Mean Platelet Volume 5.9 FL (6.5-10.1) L 5.7 FL (6.5-10.1) L Neutrophils (%) (Auto) 82.3 % (45.0-75.0) H 79.5 % (45.0-75.0) H Lymphocytes (%) (Auto) 7.8 % (20.0-45.0) L 12.2 % (20.0-45.0) L Monocytes (%) (Auto) 9.0 % (1.0-10.0) 7.8 % (1.0-10.0) Eosinophils (%) (Auto) 0.0 % (0.0-3.0) 0.0 % (0.0-3.0) Basophils (%) (Auto) 0.9 % (0.0-2.0) 0.4 % (0.0-2.0) Prothrombin Time 11.0 SEC (9.30-11.50) 11.9 SEC (9.30-11.50) H Prothromb Time International Ratio 1.0 (0.9-1.1) 1.1 (0.9-1.1) Activated Partial Thromboplast Time 30 SEC (23-33) 35 SEC (23-33) H Sodium Level 144 MMOL/L (136-145) 146 MMOL/L (136-145) H Potassium Level 3.0 MMOL/L (3.5-5.1) L 2.5 MMOL/L (3.5-5.1) *L Chloride Level 103 MMOL/L (98-107) 110 MMOL/L (98-107) H Carbon Dioxide Level 29 MMOL/L (21-32) 26 MMOL/L (21-32) Anion Gap 12 mmol/L (5-15) 10 mmol/L (5-15) Blood Urea Nitrogen 14 mg/dL (7-18) 13 mg/dL (7-18) Creatinine 0.7 MG/DL (0.55-1.30) 0.6 MG/DL (0.55-1.30) Estimat Glomerular Filtration Rate mL/min (>60) mL/min (>60) Glucose Level 166 MG/DL (74-106) H 176 MG/DL (74-106) H Lactic Acid Level 1.60 mmol/L (0.4-2.0) Calcium Level 9.7 MG/DL (8.5-10.1) 8.2 MG/DL (8.5-10.1) L Phosphorus Level 2.9 MG/DL (2.5-4.9) Magnesium Level 1.7 MG/DL (1.8-2.4) L Total Bilirubin 0.6 MG/DL (0.2-1.0) 0.5 MG/DL (0.2-1.0) Aspartate Amino Transf (AST/SGOT) 24 U/L (15-37) 16 U/L (15-37) Alanine Aminotransferase (ALT/SGPT) 14 U/L (12-78) 9 U/L (12-78) L Alkaline Phosphatase 74 U/L (46-116) 59 U/L (46-116) Total Creatine Kinase 33 U/L (26-308) Creatine Kinase MB 0.5 NG/ML (0.0-3.6) Creatine Kinase MB Relative Index 1.5 Troponin I 0.002 ng/mL (0.000-0.056) Pro-B-Type Natriuretic Peptide 1584 pg/mL (0-125) H Total Protein 7.9 G/DL (6.4-8.2) 6.4 G/DL (6.4-8.2) Albumin 2.4 G/DL (3.4-5.0) L 1.9 G/DL (3.4-5.0) L Globulin 5.5 g/dL 4.5 g/dL Albumin/Globulin Ratio 0.4 (1.0-2.7) L 0.4 (1.0-2.7) L Lipase 148 U/L (73-393) 146 U/L (73-393) Urine Color Pale yellow Urine Appearance Cloudy Urine pH 5 (4.5-8.0) Urine Specific [place] 1.020 (1.005-1.035) Urine Protein 3+ (NEGATIVE) H Urine Glucose (UA) Negative (NEGATIVE) Urine Ketones 3+ (NEGATIVE) H Urine Blood 4+ (NEGATIVE) H Urine Nitrite Negative (NEGATIVE) Urine Bilirubin 1+ (NEGATIVE) H Urine Ictotest Negative (NEGATIVE) Urine Urobilinogen 4 MG/DL (0.0-1.0) H Urine Leukocyte Esterase 3+ (NEGATIVE) H Urine RBC Tntc /HPF (0 - 2) H Urine WBC Tntc /HPF (0 - 2) H Urine Squamous Epithelial Cells Few /LPF (NONE/OCC) Urine Bacteria Many /HPF (NONE) H Arterial Blood pH 7.467 (7.350-7.450) Arterial Blood Partial Pressure CO2 34.4 mmHg (35.0-45.0) L Arterial Blood Partial Pressure O2 75.0 mmHg (75.0-100.0) Arterial Blood HCO3 24.3 mmol/L (22.0-26.0) Arterial Blood Oxygen Saturation 95.8 % (95-100) Arterial Blood Base Excess 1.0 (-2-2) Jamye Test Positive Amylase Level 95 U/L (25-115) Height (Feet): 5 Height (Inches): 4.00 Weight (Pounds): 115 Medications Current Medications Medications (Trade) Dose Ordered Sig/Lisa Route PRN Reason Start Time Stop Time Status Last Admin Dose Admin Acetaminophen (Tylenol) 650 mg Q4H PRN ORAL fever 12/09/18 18:29 01/08/19 18:28 Ceftriaxone Sodium 1 gm/ Dextrose 55 ml @ 110 mls/hr Q24H IVPB 12/10/18 14:00 12/16/18 13:59 Dextrose (Dextrose 50%) 25 ml Q30M PRN IV Hypoglycemia 12/09/18 18:45 01/07/19 22:44 Dextrose (Dextrose 50%) 50 ml Q30M PRN IV Hypoglycemia 12/09/18 18:45 01/07/19 22:44 Dextrose/Sodium Chloride 1,000 ml @ 100 mls/hr Q10H IV 12/09/18 18:29 01/08/19 18:28 Diphenhydramine HCl (Benadryl) 25 mg Q6H PRN ORAL Itching/Pruritis 12/09/18 18:30 01/08/19 18:29 Morphine Sulfate (Morphine Sulfate) 2 mg Q4H PRN IVP severe Pain (Pain Scale 7-10) 12/09/18 18:30 12/16/18 18:29 Nitroglycerin (Ntg) 0.4 mg Q5M X 3 DOSES PRN SL Prn Chest Pain 12/09/18 18:30 01/07/19 22:44 Ondansetron HCl (Zofran) 4 mg Q6H PRN IVP Nausea & Vomiting 12/09/18 18:30 01/08/19 18:29 Pantoprazole (Protonix) 40 mg EVERY 12 HOURS IV 12/09/18 21:00 01/08/19 20:59 Polyethylene Glycol (Miralax) 17 gm HSPRN PRN ORAL Constipation 12/09/18 18:30 01/08/19 18:29 Promethazine HCl/ Codeine (Phenergan with Codeine) 5 ml Q4H PRN ORAL For Cough 12/09/18 18:30 01/08/19 18:29 Temazepam (Restoril) 15 mg HSPRN PRN ORAL Insomnia 12/09/18 18:30 12/16/18 18:29 Assessment/Plan Problem List: (1) Decubitus skin ulcer Assessment & Plan: Pt presented on admission with resolving Full thickness stage 3 sacral pressure injury. Base of wound noted to have pink epithelialized borders with scattered small wounds that are moist and viable within base of wound. Coccygeal bone protrudes and skin is blanched over coccyx( L)7cm x (W)10.5cm. An area of hyperpigmentation noted to lateral R heel from previous wound. Bilat heels are boggy but each heel easily blanches. Discussed skin findings with pt's son. Son has also been advised of potential risks for sacrococcygeal area to further decline secondary to protruding bony prominence. Son informed of initiatives being implemented to prevent further skin breakdown. Tx.Plan: Apply Moisture Barrier Paste to Sacrum. Cover with Optifoam drsg. Change every 3 days and prn. Apply Cavilon Skin Barrier to both heels and lateral R malleolus. Cover each site with Optifoam drsg. Change every 7 days and prn . Apply Cavilon to bony prominences as needed and cover with Optifoam for protection. Reposition at leqast every 2hours or as tolerated. Off-load heels with pillow. Position with pillow between knees. APM/ZOHRA Mattress overlay. ICD Codes: L89.90 - Pressure ulcer of unspecified site, unspecified stage SNOMED: 030872063 (2) Protein-calorie malnutrition, severe Assessment & Plan: DAILY ESTIMATED NEEDS: Needs based on underweight, wounds, wasting; 30.5 30-40 kcals/kg 915- 1,220 total kcals 1.25-2 g protein/kg 38- 61 g total protein 25-30 mL / kcal mL/kg 763- 915 total fluid mLs NUTRITION DIAGNOSIS: Increased kcal,protein, and MVI needs r/t wound healing, underweight status,and wasting AEB sacral and right ankle wounds, 67% of [address] Body Weight, with severe generalized muscle and fat wasting. CURRENT DIET:NPO PO DIET RECOMMENDATIONS: Liberalized, soft, regular diet as medically able (texture per DINKEY BRAKEMAN) ADDITIONAL RECOMMENDATIONS: Ht 5'0", wt 30.5kg (67#) DINKEY BRAKEMAN eval when appropriate for diet Wound care: Kyler BID, MVI w min, vit C 500mg Glucerna TID with meals NISS with meals for glycemic control Weekly wts due to severe underweight status Monitor lyte+ hydration status daily, replete PRN (K 2.5, Na 146) ICD Codes: E43 - Unspecified severe protein-calorie malnutrition SNOMED: 737654243 (3) GIB (gastrointestinal bleeding) Assessment & Plan: GI bleed etiology unknown plan for EGD as per GI okay for diet from surgical standpoint replace electrolytes trend labs will follow with recs thank you ICD Codes: K92.2 - Gastrointestinal hemorrhage, unspecified SNOMED: [id number] Raghav Moon Dec 09, 2018 19:29
--- NOTE | 2018-12-09 19:30 | NUR ---
NURSE NOTES: Patient awake in bed, no signs or complaints of pain, on nasal cannula @ 2LPM. Instructed to use call light for assistance. Call light in reach. Bed in lowest position, lock engaged and alarm on. Will continue to monitor.
[2018-12-09] MEDS: Pantoprazole Inj IV SCH (20:07)
--- NOTE | 2018-12-09 20:30 | NUR ---
NURSE NOTES: Spoke to son, he said will come back tomorrow and will sign the consent after he talks to the doctor.
[2018-12-09] MEDS ORDERED: Pantoprazole Inj IV SCH (21:00)
[2018-12-10] VITALS: BP 117/60
[2018-12-10 04:00] VITALS: BP 126/69
[2018-12-10] MEDS: D5NS 1,000 ML IV SCH ×2 (04:26→15:48)
[2018-12-10 06:58] LABS: BASOPHILS % (AUTO) 0.3 % (0.0-2.0); EOSINOPHILS % (AUTO) 1.5 % (0.0-3.0); HEMATOCRIT 34.4 % (37.0-47.0); HEMOGLOBIN 11.3 G/DL (12.0-16.0); LYMPHOCYTES % (AUTO) 15.8 % (20.0-45.0); MEAN CORPUSCULAR VOLUME 105 FL (80-99); MONOCYTES % (AUTO) 6.3 % (1.0-10.0); NEUTROPHILS % (AUTO) 76.1 % (45.0-75.0); PLATELET COUNT 209 K/UL (150-450); RED BLOOD COUNT 3.28 M/UL (4.20-5.40); RED CELL DISTRIBUTION WIDTH 11.7 % (11.6-14.8); WHITE BLOOD COUNT 9.3 K/UL (4.8-10.8)
[2018-12-10 07:05] LABS: ALANINE AMINOTRANSFERASE 7 U/L (12-78); ALBUMIN 1.7 G/DL (3.4-5.0); ALBUMIN/GLOBULIN RATIO 0.4 (1.0-2.7); ALKALINE PHOSPHATASE 63 U/L (46-116); ANION GAP 6 mmol/L (5-15); ASPARTATE AMINO TRANSFERASE 18 U/L (15-37); BILIRUBIN,TOTAL 0.2 MG/DL (0.2-1.0); BLOOD UREA NITROGEN 5 mg/dL (7-18); CALCIUM 7.9 MG/DL (8.5-10.1); CARBON DIOXIDE 27 MMOL/L (21-32); CHLORIDE 113 MMOL/L (98-107); CREATININE 0.5 MG/DL (0.55-1.30); POTASSIUM 2.9 MMOL/L (3.5-5.1); SODIUM 146 MMOL/L (136-145)
--- NOTE | 2018-12-10 07:32 | NUR ---
HAND-OFF: Report given to DANICA Gillis.
--- NOTE | 2018-12-10 07:50 | NUR ---
NURSE NOTES: Received pt in bed, sleeping. On NC 2L/min. No s/s of distress/pain. IV on L AC 22g intact and patent with saline lock. IV on R AC 22g intact and patent, running D5NS @ 100 ml/hr. FC noted. Side rails x2. Bed in the lowest, locked, and alarm on. Call light within reach. Will continue to monitor
[2018-12-10 08:00] VITALS: BP 113/64
--- NOTE | 2018-12-10 08:17 | NUR ---
RADIOLOGY DEPT.,CHEST X-RAY DONE.-P.DYE
[2018-12-10] MEDS: Ascorbic Acid 500mg tab ORAL SCH (09:00)
[2018-12-10] MEDS: Pantoprazole Inj IV SCH ×2 (09:19→20:33)
[2018-12-10] MEDS ORDERED: Ketorolac 30mg Inj IV PRN ×2 (10:30)
[2018-12-10] MEDS ORDERED: HYDROcodone/Acetamin 5/325 tab ORAL PRN (10:30)
[2018-12-10] MEDS ORDERED: HYDROcodone/Acetamin 7.5/325 tab ORAL PRN (10:30)
[2018-12-10] MEDS ORDERED: Meperidine 50mg/ml Inj(FOR RIGORS ONLY) IVP PRN (10:30)
[2018-12-10] MEDS ORDERED: Hydromorphone 0.5mg/0.5ml inj IVP PRN (10:30)
[2018-12-10] MEDS ORDERED: fentaNYL 100 mcg/2 mL IV PRN (10:30)
[2018-12-10] MEDS ORDERED: DiphenhydrAMINE 50mg/ml Inj IVP PRN (10:30)
[2018-12-10] MEDS ORDERED: Atropine Sulfate 0.4mg/ml inj IVP PRN (10:30)
[2018-12-10] MEDS ORDERED: oxyCODONE HCL/Acetaminophen 5/325mg ORAL PRN (10:30)
[2018-12-10] MEDS ORDERED: Labetalol 5mg/ml 20ml vial IV PRN (10:30)
[2018-12-10] MEDS ORDERED: LR 1000ml 1,000 ML IVLG SCH (10:30)
--- NOTE | 2018-12-10 10:34 | General Progress Note ---
Assessment/Plan Problem List: (1) Pneumonia ICD Codes: J18.9 - Pneumonia, unspecified organism SNOMED: 285546750 Qualifiers: Qualified Codes: J18.1 - Lobar pneumonia, unspecified organism (2) Alzheimer's dementia ICD Codes: G30.9 - Alzheimer's disease, unspecified; F02.80 - Dementia in other diseases classified elsewhere without behavioral disturbance SNOMED: 68535091 (3) Advanced age ICD Codes: R54 - Age-related physical debility SNOMED: 27269185 (4) GIB (gastrointestinal bleeding) ICD Codes: K92.2 - Gastrointestinal hemorrhage, unspecified SNOMED: 09448815 Assessment/Plan: family refused EGD for today resume diet cont ppi fu H&H prn blood transfusion Subjective ROS Limited/Unobtainable: No Allergies: Coded Allergies: No Known Allergies (Unverified , 03/08/12) Objective Last 24 Hour Vital Signs Date Time Temp Pulse Resp B/P (MAP) Pulse Ox O2 Delivery O2 Flow Rate FiO2 12/10/18 08:00 97.9 82 17 113/64 (80) 100 12/10/18 07:20 98 Nasal Cannula 2.0 28 12/10/18 04:00 97.4 80 16 126/69 (88) 100 12/10/18 00:00 97.4 77 20 117/60 (79) 100 12/09/18 21:00 18 99 Nasal Cannula 2.0 28 12/09/18 21:00 99 Nasal Cannula 2.0 28 12/09/18 20:00 97.3 76 18 126/75 (92) 99 12/09/18 20:00 Nasal Cannula 2.0 12/09/18 16:00 Nasal Cannula 2.0 12/09/18 16:00 98.2 83 18 107/61 (76) 99 12/09/18 16:00 78 12/09/18 12:00 Nasal Cannula 2.0 12/09/18 12:00 97.5 77 18 112/62 (79) 100 12/09/18 11:44 91 Intake and Output 12/09/18 12/10/18 19:00 07:00 Intake Total 1610 ml 1200 ml Output Total 330 ml 300 ml Balance 1280 ml 900 ml Intake Oral 200 ml IV Total 1410 ml 1200 ml Output Urine Total 330 ml 300 ml Laboratory Tests 12/10/18 06:00: White Blood Count 9.3, Red Blood Count 3.28L, Hemoglobin 11.3L, Hematocrit 34.4L , Mean Corpuscular Volume 105H, Mean Corpuscular Hemoglobin 34.5H, Mean Corpuscular Hemoglobin Concent 32.8, Red Cell Distribution Width 11.7, Platelet Count 209, Mean Platelet Volume 5.9L, Neutrophils (%) (Auto) 76.1H, Lymphocytes (%) (Auto) 15.8L, Monocytes (%) (Auto) 6.3, Eosinophils (%) (Auto) 1.5, Basophils (%) (Auto) 0.3, Sodium Level 146H, Potassium Level 2.9L, Chloride Level 113H, Carbon Dioxide Level 27, Anion Gap 6, Blood Urea Nitrogen 5L, Creatinine 0.5L, Estimat Glomerular Filtration Rate , Glucose Level 138H, Calcium Level 7.9L, Total Bilirubin 0.2, Aspartate Amino Transf (AST/SGOT) 18, Alanine Aminotransferase (ALT/SGPT) 7L, Alkaline Phosphatase 63, Pro-B-Type Natriuretic Peptide 2508H, Total Protein 6.1L, Albumin 1.7L, Globulin 4.4, Albumin/Globulin Ratio 0.4L Height (Feet): 5 Height (Inches): 4.00 Weight (Pounds): 115 General Appearance: no apparent distress EENT: normal ENT inspection Neck: supple Cardiovascular: normal rate Respiratory/Chest: decreased breath sounds Abdomen: normal bowel sounds, non tender, soft Extremities: non-tender Ahsan Jorgensen MD Dec 10, 2018 10:34
[2018-12-10] MEDS ORDERED: cefTRIAXone 1 GM in D5W 55 ML IVPB SCH (11:00)
[2018-12-10 12:00] VITALS: BP 116/70
--- NOTE | 2018-12-10 12:44 | Diagnostic Imaging Report ---
Indication: Dyspnea Comparison: 12/08/2018 A single view chest radiograph was obtained. Findings: The lungs are hyperexpanded. There is retrocardiac density silhouetting out the left hemidiaphragm slight blunting of the left costophrenic angle again demonstrated. There is some prominence of pulmonary vascularity and interstitium as well. Bones are osteopenic. IMPRESSION: COPD. Mildly vascular congestion suspected. Correlate clinically. Probable small left pleural effusion Dense retrocardiac parenchymal opacity may be pneumonia or atelectasis. Correlate clinically.
[2018-12-10] MEDS: cefTRIAXone 1 GM in D5W 55 ML IVPB SCH (13:46)
--- NOTE | 2018-12-10 13:59 | Pulmonology Progress Note ---
Assessment/Plan Problems: (1) Pneumonia (2) UTI (urinary tract infection) (3) Protein-calorie malnutrition, severe (4) Advanced age (5) Alzheimer's dementia (6) At high risk for aspiration Assessment/Plan iv abx check cultures aspiration precaution dvt prophylaxis. Subjective ROS Limited/Unobtainable: No Constitutional: Reports: no symptoms HEENT: Repors: no symptoms Allergies: Coded Allergies: No Known Allergies (Unverified , 03/08/12) Objective Last 24 Hour Vital Signs Date Time Temp Pulse Resp B/P (MAP) Pulse Ox O2 Delivery O2 Flow Rate FiO2 12/10/18 12:00 98.7 84 17 116/70 (85) 98 12/10/18 08:00 97.9 82 17 113/64 (80) 100 12/10/18 07:20 98 Nasal Cannula 2.0 28 12/10/18 04:00 97.4 80 16 126/69 (88) 100 12/10/18 00:00 97.4 77 20 117/60 (79) 100 12/09/18 21:00 18 99 Nasal Cannula 2.0 28 12/09/18 21:00 99 Nasal Cannula 2.0 28 12/09/18 20:00 97.3 76 18 126/75 (92) 99 12/09/18 20:00 Nasal Cannula 2.0 12/09/18 16:00 Nasal Cannula 2.0 12/09/18 16:00 98.2 83 18 107/61 (76) 99 12/09/18 16:00 78 Intake and Output 12/09/18 12/10/18 18:59 06:59 Intake Total 1710 ml 1200 ml Output Total 330 ml 300 ml Balance 1380 ml 900 ml Intake Oral 200 ml IV Total 1510 ml 1200 ml Output Urine Total 330 ml 300 ml General Appearance: WD/WN HEENT: normocephalic, atraumatic Respiratory/Chest: chest wall non-tender, lungs clear Abdomen: soft, non tender, no mass Genitourinary: normal external genitalia Extremities: no cyanosis Skin: no rash Neurologic/Psychiatric: computer aide II-XII grossly normal Microbiology Date/Time Source Procedure Growth Status 12/08/18 21:15 Blood Blood Culture - Preliminary NO GROWTH AFTER 24 HOURS Resulted 12/08/18 21:00 Blood Blood Culture - Preliminary NO GROWTH AFTER 24 HOURS Resulted 12/08/18 21:20 Urine,Clean Catch Urine Culture - Preliminary Gram Negative Drake Resulted Laboratory Tests 12/10/18 06:00: White Blood Count 9.3, Red Blood Count 3.28L, Hemoglobin 11.3L, Hematocrit 34.4L , Mean Corpuscular Volume 105H, Mean Corpuscular Hemoglobin 34.5H, Mean Corpuscular Hemoglobin Concent 32.8, Red Cell Distribution Width 11.7, Platelet Count 209, Mean Platelet Volume 5.9L, Neutrophils (%) (Auto) 76.1H, Lymphocytes (%) (Auto) 15.8L, Monocytes (%) (Auto) 6.3, Eosinophils (%) (Auto) 1.5, Basophils (%) (Auto) 0.3, Sodium Level 146H, Potassium Level 2.9L, Chloride Level 113H, Carbon Dioxide Level 27, Anion Gap 6, Blood Urea Nitrogen 5L, Creatinine 0.5L, Estimat Glomerular Filtration Rate , Glucose Level 138H, Calcium Level 7.9L, Total Bilirubin 0.2, Aspartate Amino Transf (AST/SGOT) 18, Alanine Aminotransferase (ALT/SGPT) 7L, Alkaline Phosphatase 63, Pro-B-Type Natriuretic Peptide 2508H, Total Protein 6.1L, Albumin 1.7L, Globulin 4.4, Albumin/Globulin Ratio 0.4L Current Medications Medications (Trade) Dose Ordered Sig/Lisa Route PRN Reason Start Time Stop Time Status Last Admin Dose Admin Acetaminophen (Tylenol) 650 mg Q4H PRN ORAL fever 12/09/18 18:29 01/08/19 18:28 Acetaminophen/ Hydrocodone Bitart ([place] 5/325) 1 tab Q1H PRN ORAL Mild Pain (Pain Scale 1-3) 12/10/18 10:30 12/10/18 18:00 Acetaminophen/ Hydrocodone Bitart ([place] 7.5/325) 1 tab Q1H PRN ORAL Moderate Pain (Pain Scale 4-6) 12/10/18 10:30 12/10/18 18:00 Al Hydroxide/Mg Hydroxide (Mylanta) 15 ml Q1H PRN ORAL gi upset 12/10/18 10:30 12/10/18 18:00 Ascorbic Acid (Vitamin C) 500 mg DAILY ORAL 12/10/18 09:00 01/09/19 08:59 Atropine Sulfate (Atropine 0.4mg/ ml) 0.5 mg Q5M PRN IVP HR<40 12/10/18 10:30 12/10/18 18:00 Ceftriaxone Sodium 1 gm/ Dextrose 55 ml @ 110 mls/hr Q24H IVPB 12/10/18 14:00 12/16/18 13:59 12/10/18 13:46 Dextrose (Dextrose 50%) 25 ml Q30M PRN IV Hypoglycemia 12/09/18 18:45 01/07/19 22:44 Dextrose (Dextrose 50%) 50 ml Q30M PRN IV Hypoglycemia 12/09/18 18:45 01/07/19 22:44 Dextrose/Sodium Chloride 1,000 ml @ 100 mls/hr Q10H IV 12/09/18 18:29 01/08/19 18:28 12/10/18 04:26 Diphenhydramine HCl (Benadryl) 25 mg Q15M PRN IVP Itching 12/10/18 10:30 12/10/18 18:00 Diphenhydramine HCl (Benadryl) 25 mg Q6H PRN ORAL Itching/Pruritis 12/09/18 18:30 01/08/19 18:29 Fentanyl Citrate (Sublimaze 100 mcg/2 mL) 25 mcg Q10M PRN IV Moderate Pain (Pain Scale 4-6) 12/10/18 10:30 12/10/18 18:00 Hydralazine HCl (Apresoline) 5 mg Q30M PRN IV SBP>160 / DBP>90 12/10/18 10:30 12/10/18 18:00 Hydromorphone HCl (Dilaudid) 0.5 mg Q15M PRN IVP Severe Pain (Pain Scale 7-10) 12/10/18 10:30 12/10/18 18:00 Ketorolac Tromethamine (Toradol 30mg) 15 mg Q1H PRN IV Moderate Breakthru Pain (5-7) 12/10/18 10:30 12/10/18 18:00 Ketorolac Tromethamine (Toradol 30mg) 30 mg Q1H PRN IV Severe Breakthru Pain (>7) 12/10/18 10:30 12/10/18 18:00 Labetalol HCl (Normodyne) 5 mg Q10M PRN IV SBP>160 / DBP>90 12/10/18 10:30 12/10/18 18:00 Lactated Ringer's 1,000 ml @ 10 mls/hr Q24H IVLG 12/10/18 10:30 12/10/18 18:00 Meperidine HCl (Demerol) 25 mg Q5M PRN IVP Shivering.May repeat x 1 12/10/18 10:30 12/10/18 18:00 Morphine Sulfate (Morphine Sulfate) 2 mg Q4H PRN IVP severe Pain (Pain Scale 7-10) 12/09/18 18:30 12/16/18 18:29 Multivitamins (Multivitamins) 1 tab DAILY ORAL 12/10/18 09:00 01/09/19 08:59 Nitroglycerin (Ntg) 0.4 mg Q5M X 3 DOSES PRN SL Prn Chest Pain 12/09/18 18:30 01/07/19 22:44 Ondansetron HCl (Zofran) 4 mg Q1H PRN IVP Nausea & Vomiting 12/10/18 10:30 12/10/18 18:00 Ondansetron HCl (Zofran) 4 mg Q6H PRN IVP Nausea & Vomiting 12/09/18 18:30 01/08/19 18:29 Oxycodone/ Acetaminophen (Percocet 5-325) 1 tab Q1H PRN ORAL Severe Pain (Pain Scale 7-10) 12/10/18 10:30 12/10/18 18:00 Pantoprazole (Protonix) 40 mg EVERY 12 HOURS IV 12/09/18 21:00 01/08/19 20:59 12/10/18 09:19 Polyethylene Glycol (Miralax) 17 gm HSPRN PRN ORAL Constipation 12/09/18 18:30 01/08/19 18:29 Promethazine HCl/ Codeine (Phenergan with Codeine) 5 ml Q4H PRN ORAL For Cough 12/09/18 18:30 01/08/19 18:29 Temazepam (Restoril) 15 mg HSPRN PRN ORAL Insomnia 12/09/18 18:30 12/16/18 18:29 Rom Neal MD Dec 10, 2018 13:59
--- NOTE | 2018-12-10 14:55 | NUR ---
SPEECH PATHOLOGY: PATIENT CLEARED FOR ST INTERVENTION BY DANICA GARG. PATIENT CONTINUES TO PRESENT WITH HX OF SUBOPTIMAL P.O. INTAKE INSUFFICIENT TO SUPPORT NUTRITION/HYDRATION NEEDS. SHE IS TOLERATING HER CURRENT DIET WITH NO DIFFICULTY RELATIVE TO EFFICACY OF SWALLOW, FAMILY/SON HAS COMPLETED POLST AND DECIDED TO TAKE PATIENT HOME WITH HOSPICE CARE. D/C PENDING. CONTINUE PER PLAN.
[2018-12-10 16:00] VITALS: BP 116/72
--- NOTE | 2018-12-10 19:25 | NUR ---
NURSE NOTES: Stool was collected and brought to lab Addendum: 12/10/18 at 1938 by ISABELLA MORALES RN Wrong patient
--- NOTE | 2018-12-10 19:29 | NUR ---
HAND-OFF: Report given to DANICA Vigil.
[2018-12-10 20:00] VITALS: BP 114/60
--- NOTE | 2018-12-10 20:00 | NUR ---
NURSE NOTES: Patient received asleep, no acute distress. Archer draining via gravity. IVF infusing as ordered. On ZOHRA mattress. Will continue plan of care.
--- NOTE | 2018-12-10 20:09 | NUR ---
CASE MANAGEMENT: REVIEW SI: GI BLEED . DEHYDRATION EGD 12/10 T 97.4 HR 80 RR 16 BP 126/69 SAT 98% 2L/NC H/H 11.3/34.4 IS: CEFTRIAXONE IV Q24HR D5 NS IVF @ 100ML/HR MED/SURG STATUS DCP: PATIENT IS FROM [facility]
--- NOTE | 2018-12-10 21:00 | NUR ---
NURSE NOTES: Son at bedside, educated with aspiration precaution, encouraged patient for PO intake.
[2018-12-11] VITALS: BP 148/67
[2018-12-11] MEDS: D5NS 1,000 ML IV SCH ×3 (02:02→20:14)
--- NOTE | 2018-12-11 03:28 | NUR ---
NURSE NOTES: Received report from Marshall, spoke with Ivan. pt is + for VRE rectum. Message left to Dr. Neal.
[2018-12-11 04:00] VITALS: BP 145/70
--- NOTE | 2018-12-11 07:18 | NUR ---
NURSE NOTES: received report from DANICA Vigil. patient in bed. alert. verbally responsive. no respiratory distress noted. no pain at this time. IV on LAC 22 running fluid. melida mattress for skin management. bed in the lowest position and locked. call light within reach. contact isolation. PPE at all times. will continue to provide plan of care.
--- NOTE | 2018-12-11 07:20 | NUR ---
HAND-OFF: Report given to Justyn MISHRA.
--- NOTE | 2018-12-11 07:26 | Pulmonology Progress Note ---
Assessment/Plan Problems: (1) Pneumonia (2) UTI (urinary tract infection) (3) Protein-calorie malnutrition, severe (4) Advanced age (5) Alzheimer's dementia (6) At high risk for aspiration Assessment/Plan doing better K supplement iv abx check cultures aspiration precaution dvt prophylaxis. Subjective ROS Limited/Unobtainable: No Constitutional: Reports: no symptoms HEENT: Repors: no symptoms Allergies: Coded Allergies: No Known Allergies (Unverified , 03/08/12) Objective Last 24 Hour Vital Signs Date Time Temp Pulse Resp B/P (MAP) Pulse Ox O2 Delivery O2 Flow Rate FiO2 12/11/18 04:00 97.9 74 18 145/70 (95) 97 12/11/18 00:00 97.5 102 20 148/67 (94) 97 12/10/18 21:00 Nasal Cannula 2.0 12/10/18 20:08 98 Nasal Cannula 2.0 28 12/10/18 20:00 97.0 74 18 114/60 (78) 99 12/10/18 16:00 98.0 81 18 116/72 (87) 99 12/10/18 12:00 98.7 84 17 116/70 (85) 98 12/10/18 08:00 97.9 82 17 113/64 (80) 100 Intake and Output 12/10/18 12/11/18 19:00 07:00 Intake Total 1455 ml 1100 ml Output Total 530 ml 500 ml Balance 925 ml 600 ml IV Total 955 ml 1100 ml Other 500 ml Output Urine Total 530 ml 500 ml General Appearance: WD/WN HEENT: normocephalic, atraumatic Respiratory/Chest: chest wall non-tender, normal breath sounds Breasts: no masses Abdomen: normal bowel sounds, non distended Extremities: no cyanosis, no clubbing Lymphatic: no neck adenopathy Microbiology Date/Time Source Procedure Growth Status 12/08/18 21:15 Blood Blood Culture - Preliminary NO GROWTH AFTER 48 HOURS Resulted 12/08/18 21:00 Blood Blood Culture - Preliminary NO GROWTH AFTER 48 HOURS Resulted 12/10/18 09:30 Sputum Gram Stain - Final Resulted 12/10/18 09:30 Sputum Sputum Culture - Preliminary NORMAL UPPER RESPIRATORY ANNIE AT 24 ... Resulted 12/08/18 21:20 Nasal Nares MRSA Culture - Final NO METHICILLIN RESISTANT STAPH AUREUS... Complete 12/08/18 21:20 Urine,Clean Catch Urine Culture - Final Escherichia Coli Complete 12/08/18 21:20 Rectum - Final NO CARBAPENEM-RESISTANT ENTEROBACTERI... Complete 12/08/18 21:20 Rectum VRE Culture - Final Enterococcus Faecium - Vre Complete Current Medications Medications (Trade) Dose Ordered Sig/Lisa Route PRN Reason Start Time Stop Time Status Last Admin Dose Admin Acetaminophen (Tylenol) 650 mg Q4H PRN ORAL fever 12/09/18 18:29 01/08/19 18:28 Ascorbic Acid (Vitamin C) 500 mg DAILY ORAL 12/10/18 09:00 01/09/19 08:59 Ceftriaxone Sodium 1 gm/ Dextrose 55 ml @ 110 mls/hr Q24H IVPB 12/10/18 14:00 12/16/18 13:59 12/10/18 13:46 Dextrose (Dextrose 50%) 25 ml Q30M PRN IV Hypoglycemia 12/09/18 18:45 01/07/19 22:44 Dextrose (Dextrose 50%) 50 ml Q30M PRN IV Hypoglycemia 12/09/18 18:45 01/07/19 22:44 Dextrose/Sodium Chloride 1,000 ml @ 100 mls/hr Q10H IV 12/09/18 18:29 01/08/19 18:28 12/11/18 02:02 Diphenhydramine HCl (Benadryl) 25 mg Q6H PRN ORAL Itching/Pruritis 12/09/18 18:30 01/08/19 18:29 Morphine Sulfate (Morphine Sulfate) 2 mg Q4H PRN IVP severe Pain (Pain Scale 7-10) 12/09/18 18:30 12/16/18 18:29 Multivitamins (Multivitamins) 1 tab DAILY ORAL 12/10/18 09:00 01/09/19 08:59 Nitroglycerin (Ntg) 0.4 mg Q5M X 3 DOSES PRN SL Prn Chest Pain 12/09/18 18:30 01/07/19 22:44 Ondansetron HCl (Zofran) 4 mg Q6H PRN IVP Nausea & Vomiting 12/09/18 18:30 01/08/19 18:29 Pantoprazole (Protonix) 40 mg EVERY 12 HOURS IV 12/09/18 21:00 01/08/19 20:59 10/4/19 20:33 Polyethylene Glycol (Miralax) 17 gm HSPRN PRN ORAL Constipation 12/09/18 18:30 01/08/19 18:29 Promethazine HCl/ Codeine (Phenergan with Codeine) 5 ml Q4H PRN ORAL For Cough 12/09/18 18:30 01/08/19 18:29 Temazepam (Restoril) 15 mg HSPRN PRN ORAL Insomnia 12/09/18 18:30 12/16/18 18:29 Rom Neal MD Dec 11, 2018 07:26
[2018-12-11 08:00] VITALS: BP 115/63
[2018-12-11 08:32] LABS: ANION GAP 7 mmol/L (5-15); BLOOD UREA NITROGEN 2 mg/dL (7-18); CARBON DIOXIDE 26 MMOL/L (21-32); CHLORIDE 111 MMOL/L (98-107); CREATININE 0.6 MG/DL (0.55-1.30); POTASSIUM 2.8 MMOL/L (3.5-5.1); SODIUM 145 MMOL/L (136-145)
--- NOTE | 2018-12-11 09:00 | NUR ---
NURSE NOTES: RN noted IV site on left arm edematous and puffy. patient complained discomfort. RN dc the IV and connected the fluid on RAC 22g. elevated left arm with pillow.
[2018-12-11] MEDS: Pantoprazole Inj IV SCH ×2 (09:04→20:14)
[2018-12-11] MEDS: Ascorbic Acid 500mg tab ORAL SCH (09:04)
--- NOTE | 2018-12-11 09:42 | NUR ---
NURSE NOTES: patient potassium 2.[address] Neal and received ordered KCL 40meq IV x twice. RN ordered KCL 10meq IV x 8bags. order noted and carried out.
[2018-12-11 12:00] VITALS: BP 124/55
--- NOTE | 2018-12-11 12:19 | NUR ---
NURSE NOTES: patient c/o IV site with KCL 10meq. finished 1bag. RN got new IV access on RFA 24. Patient still c/o pain on new IV access. veins are fragile. notified ana HOOVER and waiting for further order.
[2018-12-11] MEDS ORDERED: Tubing IV Secondary IV ONE (13:50)
[2018-12-11] MEDS ORDERED: D5NS 1000ml IV ONE (13:50)
[2018-12-11] MEDS ORDERED: NS 275ml ONE (13:50)
--- NOTE | 2018-12-11 14:17 | NUR ---
NURSE NOTES: RN received new order from Dr. perez. DC KCL 10meq IV x8bags. new order Kdur 40meq x twice. order noted and carried out.
[2018-12-11] MEDS: cefTRIAXone 1 GM in D5W 55 ML IVPB SCH (14:35)
[2018-12-11 16:00] VITALS: BP 118/59
--- NOTE | 2018-12-11 17:07 | NUR ---
CASE MANAGEMENT: REVIEW 12/11/2018 SI: SEPSIS. T 98.4 HR 79 RR 18 B/P 124/55 SATS 100% ON 2L/NC LABS K 2.8 CL 111 BUN 2 GLU 124 CA 8 IS:IVF @ 100 mL/HR PROTONIX IV Q12H K DUR PO X1 CEFTRIAXONE IV Q24H MED/SURG
--- NOTE | 2018-12-11 19:25 | NUR ---
HAND-OFF: Report given to DANICA Vigil.
[2018-12-11 20:00] VITALS: BP 108/60
--- NOTE | 2018-12-11 20:00 | NUR ---
NURSE NOTES: Pt received in bed, asleep, no acute distress. FC draining via gravity. IV is intact and patent. Will monitor.
--- NOTE | 2018-12-11 22:00 | NUR ---
NURSE NOTES: Multiple attempts made in convincing patient to take PO potassium as ordered but patient refused. Left message to Dr. Neal.
[2018-12-12] VITALS (8 sets, daily range): BP systolic 103–130; BP diastolic 52–68
[2018-12-12] MEDS: D5NS 1,000 ML IV SCH (06:23)
--- NOTE | 2018-12-12 07:23 | NUR ---
NURSE NOTES: received report from DANICA Vigil. patient in bed. alert. oriented. verbally responsive in german. no respiratory distress noted. no c/o pain at this time. IV on LFA 24 running d5ns @100/hr f/c for retention draining. yellow. no sediment. no foul odor. no dry coughing at this time. melida mattress for wound management. contact isolation. PPE at all times. bed in the lowest position and locked. call light within reach. will continue to provide plan of care.
--- NOTE | 2018-12-12 07:24 | NUR ---
HAND-OFF: Report given to Justyn MISHRA.
[2018-12-12] MEDS: Ascorbic Acid 500mg tab ORAL SCH (08:47)
[2018-12-12] MEDS: Pantoprazole Inj IV SCH ×2 (08:47→20:06)
--- NOTE | 2018-12-12 09:04 | NUR ---
NURSE NOTES: patient refused to take O K-dur 40meq last night 12/11/18@2100. notified and received order. dc D5NS@100/hr, start D51/2NS kcl 40meq@50/hr. order noted and carried out.
[2018-12-12] MEDS: D5 1/2NS w/KCl 40meq 1000ml 1,000 ML IV SCH (10:56)
[2018-12-12] MEDS ORDERED: D5NS 1000ml IV ONE (12:03)
[2018-12-12] MEDS: cefTRIAXone 1 GM in D5W 55 ML IVPB SCH (14:05)
--- NOTE | 2018-12-12 19:16 | NUR ---
HAND-OFF: Report given to DANICA Vigil&DANICA Santos.
--- NOTE | 2018-12-12 21:00 | NUR ---
NURSE NOTES: received pt. in bed. no acute distress. pt. in contact isolation/ PPE at all times. No dry coughing present this time. Archer draining via gravity. IV insertion R. forearm intact and patent. bed in lowest position and call light and pt.'s items within reach. will continue to provide plan of care.
[2018-12-13] VITALS: BP 112/65
[2018-12-13 04:00] VITALS: BP 108/59
[2018-12-13] MEDS: D5 1/2NS w/KCl 40meq 1000ml 1,000 ML IV SCH (06:35)
--- NOTE | 2018-12-13 07:30 | NUR ---
HAND-OFF: Report given to Rox MISHRA.
[2018-12-13 08:00] VITALS: BP 103/62
--- NOTE | 2018-12-13 08:04 | NUR ---
NURSE NOTES: Patient received in stable condition, sleeping in bed. Breathing unlabored with nasal cannula at 2L. Patient's IV on right arm patent and intact, with fluid running. Archer catheter draining straw colored urine. Bed locked in low position, HOB elevated. Call light placed within reach, will continue to monitor.
[2018-12-13] MEDS: Pantoprazole Inj IV SCH (08:23)
[2018-12-13] MEDS: Ascorbic Acid 500mg tab ORAL SCH (08:23)
--- NOTE | 2018-12-13 11:09 | GI Progress Note ---
Assessment/Plan Problems: (1) Pneumonia ICD Codes: J18.9 - Pneumonia, unspecified organism SNOMED: 727412322 Qualifiers: Qualified Codes: J18.1 - Lobar pneumonia, unspecified organism (2) Alzheimer's dementia ICD Codes: G30.9 - Alzheimer's disease, unspecified; F02.80 - Dementia in other diseases classified elsewhere without behavioral disturbance SNOMED: 84139461 (3) Protein-calorie malnutrition, severe ICD Codes: E43 - Unspecified severe protein-calorie malnutrition SNOMED: 312909742 (4) Dementia ICD Codes: F03.90 - Unspecified dementia without behavioral disturbance SNOMED: 20793511 (5) At high risk for aspiration ICD Codes: Z91.89 - Other specified personal risk factors, not elsewhere classified SNOMED: 735222044 Status: unchanged Status Narrative Discussed with Dr. Jorgensen. Assessment/Plan family refused EGD resume diet cont ppi fu H&H prn blood transfusion supportive care The patient was seen and examined at bedside and all new and available data was reviewed in the patients chart. I agree with the above findings, impression and plan. (Patient seen earlier today. Signature stamp does not reflect patient encounter time.). - Ahsan Jorgensen MD Subjective Subjective Limited Objective Last 24 Hour Vital Signs Date Time Temp Pulse Resp B/P (MAP) Pulse Ox O2 Delivery O2 Flow Rate FiO2 12/13/18 08:00 97.7 86 18 103/62 (76) 100 12/13/18 06:25 96 Nasal Cannula 2.0 28 12/13/18 04:00 97.4 77 19 108/59 (75) 12/13/18 00:00 97.7 79 19 112/65 (81) 95 12/12/18 20:00 97.7 80 19 103/52 (69) 96 12/12/18 20:00 Nasal Cannula 2.0 12/12/18 19:56 98 Nasal Cannula 2.0 28 12/12/18 16:00 98.7 90 17 130/66 (87) 99 12/12/18 12:00 97.6 77 18 105/52 (69) 99 Intake and Output 12/12/18 12/13/18 19:00 07:00 Intake Total 1210 ml 1075 ml Output Total 600 ml 350 ml Balance 610 ml 725 ml Intake Oral 200 ml IV Total 910 ml 575 ml Other 300 ml 300 ml Output Urine Total 600 ml 350 ml # Voids 1 # Bowel Movements 1 Height (Feet): 5 Height (Inches): 4.00 Weight (Pounds): 115 General Appearance: no apparent distress, thin Cardiovascular: normal rate Respiratory/Chest: normal breath sounds, no respiratory distress Abdominal Exam: normal bowel sounds, non tender, soft Extremities: non-tender Chanell Valle NP Dec 13, 2018 11:09
[2018-12-13 12:00] VITALS: BP 136/62
--- NOTE | 2018-12-13 13:45 | Pulmonology Progress Note ---
Assessment/Plan Problems: (1) Pneumonia (2) UTI (urinary tract infection) (3) Protein-calorie malnutrition, severe (4) Advanced age (5) Alzheimer's dementia (6) At high risk for aspiration Assessment/Plan doing better K supplement iv abx check cultures, urine still pending aspiration precaution dvt prophylaxis. dc planning, son agreed with hospice care. Subjective ROS Limited/Unobtainable: No Constitutional: Reports: no symptoms Respiratory: Reports: no symptoms Allergies: Coded Allergies: No Known Allergies (Unverified , 03/08/12) Objective Last 24 Hour Vital Signs Date Time Temp Pulse Resp B/P (MAP) Pulse Ox O2 Delivery O2 Flow Rate FiO2 12/13/18 12:00 98.1 94 18 136/62 (86) 100 12/13/18 08:00 97.7 86 18 103/62 (76) 100 12/13/18 06:25 96 Nasal Cannula 2.0 28 12/13/18 04:00 97.4 77 19 108/59 (75) 12/13/18 00:00 97.7 79 19 112/65 (81) 95 12/12/18 20:00 97.7 80 19 103/52 (69) 96 12/12/18 20:00 Nasal Cannula 2.0 12/12/18 19:56 98 Nasal Cannula 2.0 28 12/12/18 16:00 98.7 90 17 130/66 (87) 99 Intake and Output 12/12/18 12/13/18 19:00 07:00 Intake Total 1210 ml 1075 ml Output Total 600 ml 350 ml Balance 610 ml 725 ml Intake Oral 200 ml IV Total 910 ml 575 ml Other 300 ml 300 ml Output Urine Total 600 ml 350 ml # Voids 1 # Bowel Movements 1 General Appearance: WD/WN HEENT: normocephalic, atraumatic Respiratory/Chest: chest wall non-tender, lungs clear Cardiovascular: normal peripheral pulses, normal rate Abdomen: normal bowel sounds, soft, non tender, no mass Genitourinary: normal external genitalia Skin: no rash Current Medications Medications (Trade) Dose Ordered Sig/Lisa Route PRN Reason Start Time Stop Time Status Last Admin Dose Admin Acetaminophen (Tylenol) 650 mg Q4H PRN ORAL fever 12/09/18 18:29 01/08/19 18:28 Ceftriaxone Sodium 1 gm/ Dextrose 55 ml @ 110 mls/hr Q24H IVPB 12/10/18 14:00 12/16/18 13:59 12/12/18 14:05 Dextrose (Dextrose 50%) 25 ml Q30M PRN IV Hypoglycemia 12/09/18 18:45 01/07/19 22:44 Dextrose (Dextrose 50%) 50 ml Q30M PRN IV Hypoglycemia 12/09/18 18:45 01/07/19 22:44 Dextrose/ Electrolytes 1,000 ml @ 50 mls/hr Q20H IV 12/12/18 10:00 01/11/19 09:59 12/13/18 06:35 Morphine Sulfate (Morphine Sulfate) 2 mg Q4H PRN IVP severe Pain (Pain Scale 7-10) 12/09/18 18:30 12/16/18 18:29 Ondansetron HCl (Zofran) 4 mg Q6H PRN IVP Nausea & Vomiting 12/09/18 18:30 01/08/19 18:29 Polyethylene Glycol (Miralax) 17 gm HSPRN PRN ORAL Constipation 12/09/18 18:30 01/08/19 18:29 Rom Neal MD Dec 13, 2018 13:45
--- NOTE | 2018-12-13 14:00 | NUR ---
RD ASSESSMENT & RECOMMENDATIONS SEE CARE ACTIVITY FOR COMPLETE ASSESSMENT DAILY ESTIMATED NEEDS: Needs based on underweight, wounds, wasting; 30.5 30-40 kcals/kg 915- 1,220 total kcals 1.25-2 g protein/kg 38- 61 g total protein 25-30 mL / kcal mL/kg 763- 915 total fluid mLs NUTRITION DIAGNOSIS: Increased kcal,protein, and MVI needs r/t wound healing, underweight status,and wasting AEB sacral and right ankle wounds, 67% of [place] Body Weight, with severe generalized muscle and fat wasting. CURRENT DIET:Regular / liquify puree/ NTL PO DIET RECOMMENDATIONS: Liberalized, soft, regular diet as medically able (texture per FINANCIAL COMPLIANCE OFFICER) ADDITIONAL RECOMMENDATIONS: Ht 5'0", wt 30.5kg (67#) FINANCIAL COMPLIANCE OFFICER eval when appropriate for diet Wound care: Kyler BID, MVI w min, vit C 500mg Glucerna TID with meals NISS with meals for glycemic control Weekly wts due to severe underweight status Monitor lyte+ hydration status daily, replete PRN (K 2.8)
[2018-12-13] MEDS: cefTRIAXone 1 GM in D5W 55 ML IVPB SCH (14:22)
[2018-12-13 16:00] VITALS: BP 105/60
--- NOTE | 2018-12-13 19:12 | NUR ---
CASE MANAGEMENT: REVIEW SI: GI BLEED . DEHYDRATION EGD 12/10 T 98.2 HR 79 RR 19 BP 108/59 SAT 96% NC/2L IS: CEFTRIAXONE IV Q24HR D5 NS IVF @ 50ML/HR MED/SURG STATUS DCP: PATIENT IS FROM [facility]
--- NOTE | 2018-12-13 19:28 | NUR ---
HAND-OFF: Report given to Aneta MISHRA.
--- NOTE | 2018-12-13 19:30 | NUR ---
NURSE NOTES: Patient awake in bed, no complaints of pain, not in respiratory distress. IV access intact. Archer catheter intact and draining well. Call light in reach and pt was instructed. Bed in lowest, lock engaged and alarm on. Will continue to monitor.
[2018-12-13 20:00] VITALS: BP 115/67
--- NOTE | 2018-12-13 21:00 | NUR ---
NURSE NOTES: Spoke with the pt's son. He wanted to know which facility is the patient going. He prefers [facility] in [place] and [facility]. Will inform next shift.
[2018-12-14] VITALS: BP 113/71
[2018-12-14] MEDS: D5 1/2NS w/KCl 40meq 1000ml 1,000 ML IV SCH ×2 (01:40→20:40)
[2018-12-14 04:00] VITALS: BP 113/57
--- NOTE | 2018-12-14 06:22 | General Progress Note ---
Assessment/Plan Problem List: (1) Pneumonia ICD Codes: J18.9 - Pneumonia, unspecified organism SNOMED: 769124509 Qualifiers: Qualified Codes: J18.1 - Lobar pneumonia, unspecified organism (2) Alzheimer's dementia ICD Codes: G30.9 - Alzheimer's disease, unspecified; F02.80 - Dementia in other diseases classified elsewhere without behavioral disturbance SNOMED: 04769385 (3) Advanced age ICD Codes: R54 - Age-related physical debility SNOMED: 74851026 (4) GIB (gastrointestinal bleeding) ICD Codes: K92.2 - Gastrointestinal hemorrhage, unspecified SNOMED: 57553538 Status: unchanged Assessment/Plan: Assessment/Plan family refused EGD cont ppi fu H&H family agreed to hospice care Subjective ROS Limited/Unobtainable: No Allergies: Coded Allergies: No Known Allergies (Unverified , 03/08/12) Objective Last 24 Hour Vital Signs Date Time Temp Pulse Resp B/P (MAP) Pulse Ox O2 Delivery O2 Flow Rate FiO2 12/14/18 04:00 98.0 83 16 113/57 (75) 98 12/14/18 00:00 97.8 82 16 113/71 (85) 98 12/13/18 21:00 Nasal Cannula 2.0 12/13/18 20:00 98.1 80 16 115/67 (83) 100 12/13/18 19:44 99 Nasal Cannula 2.0 28 12/13/18 16:00 98.2 79 19 105/60 (75) 99 12/13/18 12:00 98.1 94 18 136/62 (86) 100 12/13/18 08:00 97.7 86 18 103/62 (76) 100 12/13/18 06:25 96 Nasal Cannula 2.0 28 Intake and Output 12/13/18 12/14/18 19:00 07:00 Intake Total 50 ml 300 ml Output Total 550 ml 900 ml Balance -500 ml -600 ml IV Total 50 ml 300 ml Output Urine Total 550 ml 900 ml Laboratory Tests 12/14/18 05:50: White Blood Count [Pending], Red Blood Count [Pending], Hemoglobin [Pending], Hematocrit [Pending], Mean Corpuscular Volume [Pending], Mean Corpuscular Hemoglobin [Pending], Mean Corpuscular Hemoglobin Concent [Pending], Red Cell Distribution Width [Pending], Platelet Count [Pending], Mean Platelet Volume [ Pending], Neutrophils (%) (Auto) [Pending], Lymphocytes (%) (Auto) [Pending], Monocytes (%) (Auto) [Pending], Eosinophils (%) (Auto) [Pending], Basophils (%) (Auto) [Pending], Sodium Level [Pending], Potassium Level [Pending], Chloride Level [Pending], Carbon Dioxide Level [Pending], Blood Urea Nitrogen [Pending], Creatinine [Pending], Estimat Glomerular Filtration Rate [Pending], Glucose Level [Pending], Calcium Level [Pending], Phosphorus Level [Pending], Magnesium Level [Pending] Height (Feet): 5 Height (Inches): 4.00 Weight (Pounds): 115 General Appearance: lethargic Cardiovascular: normal rate Respiratory/Chest: decreased breath sounds Abdomen: normal bowel sounds, non tender Extremities: non-tender Ahsan Jorgensen MD Dec 14, 2018 06:22
[2018-12-14 06:23] LABS: ANION GAP 7 mmol/L (5-15); BLOOD UREA NITROGEN 1 mg/dL (7-18); CALCIUM 8.2 MG/DL (8.5-10.1); CARBON DIOXIDE 25 MMOL/L (21-32); CHLORIDE 106 MMOL/L (98-107); CREATININE 0.5 MG/DL (0.55-1.30); PHOSPHORUS 2.2 MG/DL (2.5-4.9); POTASSIUM 3.8 MMOL/L (3.5-5.1); SODIUM 138 MMOL/L (136-145)
[2018-12-14 06:24] LABS: BASOPHILS % (AUTO) 0.5 % (0.0-2.0); EOSINOPHILS % (AUTO) 2.3 % (0.0-3.0); HEMATOCRIT 32.2 % (37.0-47.0); HEMOGLOBIN 10.9 G/DL (12.0-16.0); LYMPHOCYTES % (AUTO) 26.9 % (20.0-45.0); MEAN CORPUSCULAR VOLUME 101 FL (80-99); MONOCYTES % (AUTO) 8.1 % (1.0-10.0); NEUTROPHILS % (AUTO) 62.2 % (45.0-75.0); PLATELET COUNT 204 K/UL (150-450); RED BLOOD COUNT 3.18 M/UL (4.20-5.40); RED CELL DISTRIBUTION WIDTH 11.2 % (11.6-14.8); WHITE BLOOD COUNT 6.7 K/UL (4.8-10.8)
--- NOTE | 2018-12-14 07:32 | NUR ---
NURSE NOTES: Patient received in stable condition, resting in bed, awake. Able to verbalize needs. Breathing unlabored with nasal cannula. Denies pain at this time. IV fluids running. HOB elevated for aspiration precautions. Call light placed within reach, will continue to monitor.
[2018-12-14 08:00] VITALS: BP 100/56
[2018-12-14 12:00] VITALS: BP 121/67
[2018-12-14] MEDS: cefTRIAXone 1 GM in D5W 55 ML IVPB SCH (13:24)
--- NOTE | 2018-12-14 13:59 | Pulmonology Progress Note ---
Assessment/Plan Problems: (1) Pneumonia (2) UTI (urinary tract infection) (3) Protein-calorie malnutrition, severe (4) Advanced age (5) Alzheimer's dementia (6) At high risk for aspiration Assessment/Plan eating better check cultures, urine still pending aspiration precaution dvt prophylaxis. dc planning, son agreed with hospice care. pending placement Subjective ROS Limited/Unobtainable: No Interval Events: comfortable Constitutional: Reports: no symptoms HEENT: Repors: no symptoms Allergies: Coded Allergies: No Known Allergies (Unverified , 03/08/12) Objective Last 24 Hour Vital Signs Date Time Temp Pulse Resp B/P (MAP) Pulse Ox O2 Delivery O2 Flow Rate FiO2 12/14/18 12:00 98.1 83 14 121/67 (85) 99 12/14/18 08:00 98 Nasal Cannula 2.0 28 12/14/18 08:00 97.7 86 14 100/56 (71) 98 12/14/18 04:00 98.0 83 16 113/57 (75) 98 12/14/18 00:00 97.8 82 16 113/71 (85) 98 12/13/18 21:00 Nasal Cannula 2.0 12/13/18 20:00 98.1 80 16 115/67 (83) 100 12/13/18 19:44 99 Nasal Cannula 2.0 28 12/13/18 16:00 98.2 79 19 105/60 (75) 99 Intake and Output 12/13/18 12/14/18 18:59 06:59 Intake Total 350 ml Output Total 550 ml 900 ml Balance -550 ml -550 ml IV Total 350 ml Output Urine Total 550 ml 900 ml General Appearance: WD/WN HEENT: normocephalic, anicteric Respiratory/Chest: chest wall non-tender, lungs clear Cardiovascular: normal peripheral pulses, normal rate Abdomen: normal bowel sounds, no organomegaly Extremities: no cyanosis, no clubbing Skin: no lesions Laboratory Tests 12/14/18 05:50: White Blood Count 6.7, Red Blood Count 3.18L, Hemoglobin 10.9L, Hematocrit 32.2L , Mean Corpuscular Volume 101H, Mean Corpuscular Hemoglobin 34.2H, Mean Corpuscular Hemoglobin Concent 33.8, Red Cell Distribution Width 11.2L, Platelet Count 204, Mean Platelet Volume 5.4L, Neutrophils (%) (Auto) 62.2, Lymphocytes (%) (Auto) 26.9, Monocytes (%) (Auto) 8.1, Eosinophils (%) (Auto) 2.3, Basophils (%) (Auto) 0.5, Sodium Level 138, Potassium Level 3.8, Chloride Level 106, Carbon Dioxide Level 25, Anion Gap 7, Blood Urea Nitrogen 1L, Creatinine 0.5L, Estimat Glomerular Filtration Rate , Glucose Level 89, Calcium Level 8.2L, Phosphorus Level 2.2L, Magnesium Level 1.1L Current Medications Medications (Trade) Dose Ordered Sig/Lisa Route PRN Reason Start Time Stop Time Status Last Admin Dose Admin Acetaminophen (Tylenol) 650 mg Q4H PRN ORAL fever 12/09/18 18:29 01/08/19 18:28 Ceftriaxone Sodium 1 gm/ Dextrose 55 ml @ 110 mls/hr Q24H IVPB 12/10/18 14:00 12/16/18 13:59 12/14/18 13:24 Dextrose (Dextrose 50%) 25 ml Q30M PRN IV Hypoglycemia 12/09/18 18:45 01/07/19 22:44 Dextrose (Dextrose 50%) 50 ml Q30M PRN IV Hypoglycemia 12/09/18 18:45 01/07/19 22:44 Dextrose/ Electrolytes 1,000 ml @ 50 mls/hr Q20H IV 12/12/18 10:00 01/11/19 09:59 12/14/18 01:40 Morphine Sulfate (Morphine Sulfate) 2 mg Q4H PRN IVP severe Pain (Pain Scale 7-10) 12/09/18 18:30 12/16/18 18:29 Ondansetron HCl (Zofran) 4 mg Q6H PRN IVP Nausea & Vomiting 12/09/18 18:30 01/08/19 18:29 Polyethylene Glycol (Miralax) 17 gm HSPRN PRN ORAL Constipation 12/09/18 18:30 01/08/19 18:29 Rom Neal MD Dec 14, 2018 13:59
--- NOTE | 2018-12-14 14:54 | NUR ---
*-* DISCHARGE PLANNING *-* PATIENT HAS BEEN REFERRED TO: [facility] P: [phone] F: [phone]
[2018-12-14 16:00] VITALS: BP 113/53
--- NOTE | 2018-12-14 19:08 | NUR ---
HAND-OFF: Report given to Aneta MISHRA.
--- NOTE | 2018-12-14 19:15 | NUR ---
NURSE NOTES: Patient awake in bed, not in pain, calm. IV access still intact and and no signs of infiltration. Archer cath intact. Call light in reach. Bed in lowest, lock engaged and alarm on. Will continue to monitor.
[2018-12-14 20:00] VITALS: BP 124/63
[2018-12-15] VITALS: BP 119/72
--- NOTE | 2018-12-15 01:06 | NUR ---
NURSE NOTES: Received report from DANICA Cornell. Patient bedridden, a/a/o x 2, breathing unlabored without distress, discomfort, or sob noted on 2L O2 via NC. Denies pain at this time. Trouble sleeping. IV site noted on right forearm intact and running fluid as ordered. Bed placed at the lowest with alarm, brake, and siderails up for safety. Archer intact draining urine. Call light placed within reach. Will continue to monitor and provide care as ordered.
--- NOTE | 2018-12-15 01:06 | NUR ---
HAND-OFF: Report given to DANICA Gonsalez.
[2018-12-15 04:00] VITALS: BP 124/65
--- NOTE | 2018-12-15 07:39 | NUR ---
HAND-OFF: Report given to DANICA Elam and DANICA Bennett.
--- NOTE | 2018-12-15 07:40 | NUR ---
NURSE NOTES: Received patient on bed awake. No SOB or cardiac distress. IV line intact and patent. FC intact and patent. Kept on aspiration precautions. Head of bed elevated. Bed locked in lowest position. Needs attended. Call light within reach. Will continue plan of care.
[2018-12-15 08:00] VITALS: BP 126/64
[2018-12-15 12:00] VITALS: BP 120/55
--- NOTE | 2018-12-15 12:26 | GI Progress Note ---
Assessment/Plan Problems: (1) Pneumonia ICD Codes: J18.9 - Pneumonia, unspecified organism SNOMED: 200862397 Qualifiers: Qualified Codes: J18.1 - Lobar pneumonia, unspecified organism (2) Alzheimer's dementia ICD Codes: G30.9 - Alzheimer's disease, unspecified; F02.80 - Dementia in other diseases classified elsewhere without behavioral disturbance SNOMED: 70367414 (3) Protein-calorie malnutrition, severe ICD Codes: E43 - Unspecified severe protein-calorie malnutrition SNOMED: 446598804 (4) Dementia ICD Codes: F03.90 - Unspecified dementia without behavioral disturbance SNOMED: 63588355 (5) At high risk for aspiration ICD Codes: Z91.89 - Other specified personal risk factors, not elsewhere classified SNOMED: 319337052 Status: stable Status Narrative Discussed with Dr. Jorgensen. Assessment/Plan family refused EGD cont ppi fu H&H family agreed to hospice care The patient was seen and examined at bedside and all new and available data was reviewed in the patients chart. I agree with the above findings, impression and plan. (Patient seen earlier today. Signature stamp does not reflect patient encounter time.). - Ahsan Jorgensen MD Subjective Subjective Limited Objective Last 24 Hour Vital Signs Date Time Temp Pulse Resp B/P (MAP) Pulse Ox O2 Delivery O2 Flow Rate FiO2 12/15/18 09:00 Nasal Cannula 2.0 12/15/18 08:00 98.1 84 14 126/64 (84) 98 12/15/18 07:10 99 Nasal Cannula 2.0 28 12/15/18 04:00 98.1 77 16 124/65 (84) 100 12/15/18 00:00 98.0 73 20 119/72 (88) 97 12/14/18 23:30 89 18 99 Nasal Cannula 2.0 28 12/14/18 21:00 Nasal Cannula 2.0 12/14/18 20:00 98.2 20 124/63 (83) 99 12/14/18 19:41 98 Nasal Cannula 2.0 28 12/14/18 16:00 98.6 79 18 113/53 (73) 100 Intake and Output 12/14/18 12/15/18 19:00 07:00 Intake Total 130 ml 910 ml Output Total 500 ml 2500 ml Balance -370 ml -1590 ml Intake Oral 80 ml 360 ml IV Total 50 ml 550 ml Output Urine Total 500 ml 2500 ml Height (Feet): 5 Height (Inches): 4.00 Weight (Pounds): 110 General Appearance: no apparent distress Cardiovascular: normal rate Respiratory/Chest: normal breath sounds, no respiratory distress Abdominal Exam: normal bowel sounds, non tender, soft Extremities: non-tender Chanell Valle NP Dec 15, 2018 12:26
--- NOTE | 2018-12-15 12:40 | Pulmonology Progress Note ---
Assessment/Plan Problems: (1) Pneumonia (2) UTI (urinary tract infection) (3) Protein-calorie malnutrition, severe (4) Advanced age (5) Alzheimer's dementia (6) At high risk for aspiration Assessment/Plan no new complains aspiration precaution dvt prophylaxis. dc planning, son agreed with hospice care. pending placement Subjective ROS Limited/Unobtainable: No Constitutional: Reports: no symptoms HEENT: Repors: no symptoms Allergies: Coded Allergies: No Known Allergies (Unverified , 03/08/12) Objective Last 24 Hour Vital Signs Date Time Temp Pulse Resp B/P (MAP) Pulse Ox O2 Delivery O2 Flow Rate FiO2 12/15/18 09:00 Nasal Cannula 2.0 12/15/18 08:00 98.1 84 14 126/64 (84) 98 12/15/18 07:10 99 Nasal Cannula 2.0 28 12/15/18 04:00 98.1 77 16 124/65 (84) 100 12/15/18 00:00 98.0 73 20 119/72 (88) 97 12/14/18 23:30 89 18 99 Nasal Cannula 2.0 28 12/14/18 21:00 Nasal Cannula 2.0 12/14/18 20:00 98.2 20 124/63 (83) 99 12/14/18 19:41 98 Nasal Cannula 2.0 28 12/14/18 16:00 98.6 79 18 113/53 (73) 100 Intake and Output 12/14/18 12/15/18 19:00 07:00 Intake Total 130 ml 910 ml Output Total 500 ml 2500 ml Balance -370 ml -1590 ml Intake Oral 80 ml 360 ml IV Total 50 ml 550 ml Output Urine Total 500 ml 2500 ml General Appearance: WD/WN HEENT: normocephalic, anicteric Cardiovascular: normal peripheral pulses Abdomen: normal bowel sounds, no organomegaly Current Medications Medications (Trade) Dose Ordered Sig/Lisa Route PRN Reason Start Time Stop Time Status Last Admin Dose Admin Acetaminophen (Tylenol) 650 mg Q4H PRN ORAL fever 12/09/18 18:29 01/08/19 18:28 Ceftriaxone Sodium 1 gm/ Dextrose 55 ml @ 110 mls/hr Q24H IVPB 12/10/18 14:00 12/16/18 13:59 12/14/18 13:24 Dextrose (Dextrose 50%) 25 ml Q30M PRN IV Hypoglycemia 12/09/18 18:45 01/07/19 22:44 Dextrose (Dextrose 50%) 50 ml Q30M PRN IV Hypoglycemia 12/09/18 18:45 01/07/19 22:44 Dextrose/ Electrolytes 1,000 ml @ 50 mls/hr Q20H IV 12/12/18 10:00 01/11/19 09:59 12/14/18 20:40 Morphine Sulfate (Morphine Sulfate) 2 mg Q4H PRN IVP severe Pain (Pain Scale 7-10) 12/09/18 18:30 12/16/18 18:29 Ondansetron HCl (Zofran) 4 mg Q6H PRN IVP Nausea & Vomiting 12/09/18 18:30 01/08/19 18:29 Polyethylene Glycol (Miralax) 17 gm HSPRN PRN ORAL Constipation 12/09/18 18:30 01/08/19 18:29 Rom Neal MD Dec 15, 2018 12:40
--- NOTE | 2018-12-15 14:50 | NUR ---
ST NOTES: SWALLOW STATUS: PATIENT SEEN FOR DYSPHAGIA. PER RN, JAIME, PATIENT WAS CONSTIPATED AND HAD A POOR APPETITE. INTAKE 0 TO 25% WITH LIQUIFIED PUREED LIKE NECTAR THICK SOUP BUT OK TO HAVE THIN LIQUIDS. STILL WOULD BENEFIT FROM A MOD BARIUM SWALLOW STUDY GIVEN HER RISK FOR SILENT ASPIRATION AND DX OF PNA AND DEMENTIA. GOALS MET FOR STAFF EDUCATED/TRAINED IN POSTED ASPIRATION PRECAUTIONS. PLAN: CONTINUE CURRENT DIET/LIQUIDS FOR NOW AND WITH PLAN OF CARE IN SWALLOW EVAL REPORT. MOD BARIUM SWALLOW STUDY IP OR OP IF DC.
[2018-12-15] MEDS: cefTRIAXone 1 GM in D5W 55 ML IVPB SCH (15:59)
[2018-12-15 16:00] VITALS: BP 99/55
--- NOTE | 2018-12-15 16:07 | NUR ---
NURSE NOTES:WOUND CARE FOLLOW-UP NOTES:Sacral wound resolving. Beefy granulation at base of wound Scattered open wounds within are resolving. No areas of induration noted. Pt verbalized tenderness when minimally palpated No odor or exudate noted . (L)8.5cm x (W)10cm.. Non-blanchable erythemas noted to lumbar spine(L)4.5cm. Pt denied tenderness when palpated. Both heels are soft but easily blanchable. All wound Tx continued as ordered. Optifoam drsgs applied to bony prominences as preventive care as pt is frail. Pt positioned with pillows in ed with both heels floated off bed. Tx.Lma: Apply Cavilon Skin Barrier to lumbar redness. Cover with Optifoam drsg. Change every 7 days and prn. Apply Moisture Barrier Paste to buttocks. Cover with Optifoam drsg. Change every 3 days and prn. Apply Cavilon Skin Barrier to both heels. Cover each heel with Optifoam drsg. Change every 7 days and prn. APM/ZOHRA mattress. Reposition at least every 2hours or as tolerated. Off-load heels with pillow.
[2018-12-15] MEDS: D5 1/2NS w/KCl 40meq 1000ml 1,000 ML IV SCH (16:11)
--- NOTE | 2018-12-15 19:16 | NUR ---
HAND-OFF: Report given to
--- NOTE | 2018-12-15 19:30 | NUR ---
NURSE NOTES: Received patient in no apparent distress. A&OX2. NC 2L on, no s/s of respiratory distress noted. IV site patent and intact. Archer cath draining well by gravity, yellow urine noted. Bed in lowest position. Call light within reach. Will continue to monitor.
--- NOTE | 2018-12-15 19:49 | NUR ---
CASE MANAGEMENT: REVIEW SI: GI BLEED . DEHYDRATION T 98.2 HR 82 RR 16 BP 99/55 SAT 99% NC/2L IS: CEFTRIAXONE IV Q24HR D5 NS IVF @ 50ML/HR MED/SURG STATUS DCP: PATIENT IS FROM [facility]
[2018-12-15 20:00] VITALS: BP 94/53
[2018-12-16] VITALS: BP 115/55
[2018-12-16 04:00] VITALS: BP 118/53
--- NOTE | 2018-12-16 07:27 | NUR ---
NURSE NOTES: Obtained order of Mg 2gm IV once from Dr. Neal.
--- NOTE | 2018-12-16 07:28 | NUR ---
HAND-OFF: Report given to Justyn MISHRA.
--- NOTE | 2018-12-16 07:48 | NUR ---
NURSE NOTES: received report from DANICA Frazier. patient in bed. sleeping. no respiratory distress noted with 2l via NC. no facial grimacing noted. IV on RH22 running fluid. f/c draining no hematuria. no odor. yellow. no sediment. ZOHRA mattress for wound management. bed in the lowest position and locked. call light within reach. alarm on. will continue to provide plan of care.
[2018-12-16 08:00] VITALS: BP 130/48
--- NOTE | 2018-12-16 08:40 | NUR ---
RD ASSESSMENT & RECOMMENDATIONS SEE CARE ACTIVITY FOR COMPLETE ASSESSMENT DAILY ESTIMATED NEEDS: Needs based on underweight, wounds, wasting; 30.5 30-40 kcals/kg 915-1220 total kcals 1.25-2 g protein/kg 38- 61 g total protein 25-30 mL/kcal mL/kg 763- 915 total fluid mLs NUTRITION DIAGNOSIS: Increased kcal,protein, and MVI needs r/t wound healing, underweight status,and wasting AEB sacral and right ankle wounds, 67% of [place] Body Weight, with severe generalized muscle and fat wasting. CURRENT DIET: Regular / liquify puree/ NTL PO DIET RECOMMENDATIONS: Liberalized, soft, regular diet as medically able (texture per [employer]) ADDITIONAL RECOMMENDATIONS: Ht 5'0", wt 30.5kg (67#) [employer]GER eval when appropriate for diet- now on liquify puree Wound care: Kyler BID, MVI w min, Vit C 500mg Glucerna TID with meals NISS with meals for glycemic control Weekly wts due to severe underweight status Monitor lyte+ hydration status daily, replete PRN (Mg 1.1)
--- NOTE | 2018-12-16 10:57 | GI Progress Note ---
Assessment/Plan Problems: (1) Pneumonia ICD Codes: J18.9 - Pneumonia, unspecified organism SNOMED: 512752871 Qualifiers: Qualified Codes: J18.1 - Lobar pneumonia, unspecified organism (2) Alzheimer's dementia ICD Codes: G30.9 - Alzheimer's disease, unspecified; F02.80 - Dementia in other diseases classified elsewhere without behavioral disturbance SNOMED: 74862587 (3) Protein-calorie malnutrition, severe ICD Codes: E43 - Unspecified severe protein-calorie malnutrition SNOMED: 845770141 (4) Dementia ICD Codes: F03.90 - Unspecified dementia without behavioral disturbance SNOMED: 15654488 (5) At high risk for aspiration ICD Codes: Z91.89 - Other specified personal risk factors, not elsewhere classified SNOMED: 125141690 Status: unchanged Status Narrative Discussed with Dr. Jorgensen. Assessment/Plan family refused EGD cont ppi fu H&H family agreed to hospice care The patient was seen and examined at bedside and all new and available data was reviewed in the patients chart. I agree with the above findings, impression and plan. (Patient seen earlier today. Signature stamp does not reflect patient encounter time.). - Ahsan Jorgensen MD Subjective Subjective Limited Objective Last 24 Hour Vital Signs Date Time Temp Pulse Resp B/P (MAP) Pulse Ox O2 Delivery O2 Flow Rate FiO2 12/16/18 08:00 98.2 85 18 130/48 (75) 98 12/16/18 07:36 97 Nasal Cannula 2.0 28 12/16/18 04:00 97.6 80 18 118/53 (74) 98 12/16/18 00:00 97.3 81 20 115/55 (75) 97 12/15/18 21:25 98 Nasal Cannula 2.0 28 12/15/18 21:00 Nasal Cannula 2.0 12/15/18 20:00 97.7 85 18 94/53 (67) 99 12/15/18 16:00 98.2 82 16 99/55 (70) 99 12/15/18 12:00 98.1 79 16 120/55 (76) 98 Intake and Output 12/15/18 12/16/18 19:00 07:00 Intake Total 655 ml 550 ml Output Total 350 ml 1100 ml Balance 305 ml -550 ml IV Total 655 ml 550 ml Output Urine Total 350 ml 1100 ml # Voids 2 # Bowel Movements 1 Height (Feet): 5 Height (Inches): 4.00 Weight (Pounds): 110 Chanell Valle NP Dec 16, 2018 10:56
[2018-12-16 12:00] VITALS: BP 104/46
--- NOTE | 2018-12-16 13:17 | Pulmonology Progress Note ---
Assessment/Plan Problems: (1) Pneumonia (2) UTI (urinary tract infection) (3) Protein-calorie malnutrition, severe (4) Advanced age (5) Alzheimer's dementia (6) At high risk for aspiration Assessment/Plan no new complains aspiration precaution dvt prophylaxis. dc planning, son agreed with hospice care. pending placement Subjective ROS Limited/Unobtainable: No Constitutional: Reports: no symptoms HEENT: Repors: no symptoms Respiratory: Reports: no symptoms Allergies: Coded Allergies: No Known Allergies (Unverified , 03/08/12) Objective Last 24 Hour Vital Signs Date Time Temp Pulse Resp B/P (MAP) Pulse Ox O2 Delivery O2 Flow Rate FiO2 12/16/18 12:00 97.9 80 20 104/46 (65) 99 12/16/18 08:00 98.2 85 18 130/48 (75) 98 12/16/18 07:36 97 Nasal Cannula 2.0 28 12/16/18 04:00 97.6 80 18 118/53 (74) 98 12/16/18 00:00 97.3 81 20 115/55 (75) 97 12/15/18 21:25 98 Nasal Cannula 2.0 28 12/15/18 21:00 Nasal Cannula 2.0 12/15/18 20:00 97.7 85 18 94/53 (67) 99 12/15/18 16:00 98.2 82 16 99/55 (70) 99 Intake and Output 12/15/18 12/16/18 19:00 07:00 Intake Total 655 ml 550 ml Output Total 350 ml 1100 ml Balance 305 ml -550 ml IV Total 655 ml 550 ml Output Urine Total 350 ml 1100 ml # Voids 2 # Bowel Movements 1 General Appearance: cachetic HEENT: normocephalic, atraumatic Respiratory/Chest: chest wall non-tender, lungs clear Breasts: no masses Cardiovascular: normal peripheral pulses Abdomen: normal bowel sounds, soft, non tender Genitourinary: normal external genitalia Extremities: no cyanosis Skin: no rash Current Medications Medications (Trade) Dose Ordered Sig/Lisa Route PRN Reason Start Time Stop Time Status Last Admin Dose Admin Acetaminophen (Tylenol) 650 mg Q4H PRN ORAL fever 12/09/18 18:29 01/08/19 18:28 Ceftriaxone Sodium 1 gm/ Dextrose 55 ml @ 110 mls/hr Q24H IVPB 12/10/18 14:00 12/16/18 13:59 12/15/18 15:59 Dextrose (Dextrose 50%) 25 ml Q30M PRN IV Hypoglycemia 12/09/18 18:45 01/07/19 22:44 Dextrose (Dextrose 50%) 50 ml Q30M PRN IV Hypoglycemia 12/09/18 18:45 01/07/19 22:44 Dextrose/ Electrolytes 1,000 ml @ 50 mls/hr Q20H IV 12/12/18 10:00 01/11/19 09:59 12/15/18 16:11 Magnesium Sulfate 100 ml @ 100 mls/hr ONCE IVPB 12/16/18 12:45 12/16/18 13:45 12/16/18 12:42 Morphine Sulfate (Morphine Sulfate) 2 mg Q4H PRN IVP severe Pain (Pain Scale 7-10) 12/09/18 18:30 12/16/18 18:29 Ondansetron HCl (Zofran) 4 mg Q6H PRN IVP Nausea & Vomiting 12/09/18 18:30 01/08/19 18:29 Polyethylene Glycol (Miralax) 17 gm HSPRN PRN ORAL Constipation 12/09/18 18:30 01/08/19 18:29 Rom Neal MD Dec 16, 2018 13:17
[2018-12-16] MEDS: D5 1/2NS w/KCl 40meq 1000ml 1,000 ML IV SCH (15:02)
[2018-12-16 16:00] VITALS: BP 92/48
--- NOTE | 2018-12-16 16:43 | NUR ---
DISCHARGE PLANNING DISCHARGE ORDER NOTED Patient has been accepted to; [facility] [address] [place] [address] Bed: 16-2 Skilled [phone] for Nurse to Nurse report [facility] ETA for transportation: 18:45
--- NOTE | 2018-12-16 17:19 | NUR ---
NURSE NOTES: patient order of discharge at 1800 today to [facility]. No DC meds reconcile done. notified Dr. perez and waiting for meds reconcile for discharging. received order DC gil cath upon discharge. order noted and carried out.
--- NOTE | 2018-12-16 17:39 | NUR ---
NURSE NOTES: RN gave report to [facility]. spoke to DANICA Acharya, charge nurse
--- NOTE | 2018-12-16 18:05 | NUR ---
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
--- NOTE | 2018-12-16 18:10 | NUR ---
NURSE NOTES: received call from Dr. perez. will put the dc meds for the patient.
--- NOTE | 2018-12-16 19:00 | NUR ---
HAND-OFF: Report given to DANICA Nuñez.
[2018-12-16 20:50] VITALS: BP 98/67
--- NOTE | 2018-12-16 21:57 | NUR ---
NURSE NOTES: Patient is discharged to [facility] via ambulance, report is given t ambulance staff, patient is stable.
--- NOTE | 2018-12-17 10:39 | Discharge Summary ---
Discharge Summary Discharge Summary _ DATE OF ADMISSION: 12/08/2018 DATE OF DISCHARGE: 12/16/2018 DISCHARGED BY: Dr. Neal REASON FOR ADMISSION: 88 years old female with past medical history of dementia, cachexia, osteoarthritis, hypertension, presented from the [facility] facility with cough and phlegm . Patient was refusing to eat for the last 2 weeks. Patient by herself was a poor historian and unable to provide any information. Upon evaluation vital signs revealed tachycardia with heart rate 138. Pulse oximetry was 96% on 2 L of oxygen via nasal cannula. Laboratory work-up revealed no leukocytosis , hemoglobin 13, hematocrit 38. Sodium 144, potassium 3.0. Magnesium 1.7. BUN 14, creatinine 0.7. Lactic acid 1.6. Stable LFT. Troponin 0.002. EKG showed sinus tachycardia, no acute ischemic changes. Albumin 2.4. Urinalysis revealed evidence of UTI. Chest x-ray demonstrated retrocardiac opacification , likely pneumonia. COPD. ABG was stable on 2 L of oxygen via nasal cannula. In emergency room patient pancultured , started on IV fluids , received empiric antibiotic and admitted for further management. CONSULTANTS: GI specialist Dr. Jorgensen surgery Dr. Moon [facility] COURSE: Patient admitted to medical surgical floor. Patient started on empiric antibiotic. Supplemental oxygen titrated to keep pulse oximetry above 92%. Pulmonary toilet with bronchodilator via hand held nebulizing therapy and chest physiotherapy provided. Potassium and magnesium replaced Bedside swallow evaluation revealed mild to moderate oropharyngeal dysphagia with increased overall transit time. High risk for silent aspiration. Diet texture provided as per speech therapist recommendations with strict aspiration/reflux precautions. Protein supplements implemented in plan of care as per registered dietitian recommendations. Blood culture were negative. Urine culture revealed E. coli. Sputum culture revealed Violet. Antibiotic treatment completed while in the hospital. No fevers , no leukocytosis. Venous duplex bilateral lower extremity revealed no evidence of acute DVT. Code status changed to DNR/DNI on 12/09/2018 per conversation with family. Patient noted to have significant drop in hemoglobin and hematocrit : hemoglobin from initial 13 dropped to 10.3 and hematocrit from initial 38 down to 30.8. GI specialist followed. Patient started on the GI prophylaxis. Plan was to have EGD . Family refused EGD. Hemoglobin and hematocrit were closely monitored with goal to keep hemoglobin above 7. Hemoglobin and hematocrit remained at the baseline : prior to discharge hemoglobin 10.9 , hematocrit 32.2. Renal parameters and electrolytes were closely monitored. Electrolytes corrected as needed, and nephrotoxins were avoided. Patient presented with resolving full-thickness stage III sacral pressure injury. Wound care provided as per surgeon recommendation. Continue wound care at the facility. Supportive care provided. Bowel regimen instituted. Further goals of care where discussed with the patient's son, who agreed with hospice services. Patient was stable for discharge to [facility] facility. FINAL DIAGNOSES: Pneumonia UTI High aspiration risk Alzheimer dementia Advanced age Hypokalemia Stage III sacral ulcer, present on admission Severe protein calorie malnutrition DISCHARGE MEDICATIONS: See Medication Reconciliation list. DISCHARGE INSTRUCTIONS: Patient was discharged to the [facility] facility with hospice services . Follow up with medical doctor at the facility. I have been assigned to dictate discharge summary for this account. I was not involved in the patient's management. Brandie Ritchie NP Dec 17, 2018 10:39
--- NOTE | 2018-12-18 17:21 | Cardiology Report ---
APPROVED REPORT EKG Measurement Heart [id number] Sinus tachycardia Possible Left atrial enlargement Borderline ECG
--- NOTE | 2018-12-20 22:42 | Coder Physician Query ---
Clarification is required for compliance, coding accuracy, and to reflect severity of illness for this patient Dear Dr. Rom Neal Date:12/20/18 A diagnosis of "Pneumonia" is documented on this patient. [facility] the [facility] with cough and phlegm. Bedside swallow evaluation revealed mild to moderate oropharyngeal dysphagia with increased overall transit time. Patient showed high risk for silent aspiration. Diet texture provided as per speech therapist recommendations with strict aspiration/reflux precautions. Sputum culture also revealed Violet. Antibiotic treatment completed. Please specify the underlying etiology: [] Gram +Positive Organism(s) [] Anaerobes [] Gram -Negative Organism(s) [] Aspiration [] Other organism(s). Please specify: [xxx ] Unable to determine Present on Admission: [xx] Yes [] No [] Clinically Undetermined Physician signature Date Please also document in your Progress Notes and/or Discharge Summary and indicate if the condition was present on admission. CATHI
== END 2018-12-16 21:30 | DRG 193 ==
LOC: EDBD 20:54 → EMR 21:15 → 2W 22:22 → EDBEDREQ 12-09 00:03 → 4E 12-09 18:12
DX: J18.9 Pneumonia, unspecified organism (principal); L89.153 Pressure ulcer of sacral region, stage 3; E43 Unspecified severe protein-calorie malnutrition; J44.0 Chronic obstructive pulmonary disease with (acute) lower respiratory infection; K92.2 Gastrointestinal hemorrhage, unspecified; N39.0 Urinary tract infection, site not specified; Z68.1 Body mass index [BMI] 19.9 or less, adult; E86.0 Dehydration; G30.9 Alzheimer's disease, unspecified; F02.80 Dementia in other diseases classified elsewhere, unspecified severity, without behavioral disturbance, psychotic disturbance, mood disturbance, and anxiety; Z53.8 Procedure and treatment not carried out for other reasons; E87.6 Hypokalemia; Z66 Do not resuscitate; B96.20 Unspecified Escherichia coli [E. coli] as the cause of diseases classified elsewhere; R13.12 Dysphagia, oropharyngeal phase
CPT/HCPCS: 36415; 36600; 71045; 80048; 80053; 81003; 82150; 82550; 82553; 82803; 83605; 83690; 83735; 83880; 84100; 84484; 85025; 85610; 85730; 87040; 87070; 87081; 87086; 87181; 87205; 93005; 93970; 94664; 96365; 96368; 96375; 99291; J8499

== ENCOUNTER 2019-09-23 18:35 | Inpatient (IN) | payer MEDICARE, MEDICAID ==
[~2019-09-23] VITALS: Ht 144.8 cm; Wt 49.9 kg
--- NOTE | 2019-09-23 18:54 | NUR ---
ED Nurse Note:pt. was BIBA from SNF with fever and SOB, pt. is confused, placed on isolation and monitoring and evaluation advisor
[2019-09-23 19:00] VITALS: BP 132/76
--- NOTE | 2019-09-23 19:35 | Emergency Room Report ---
History of Present Illness General Chief Complaint: Fever Present Illness HPI Disclaimer: Please note that this report is being documented using DRAGON technology. This can lead to erroneous entry secondary to incorrect interpretation by the dictating instrument. HPI: 88-year-old female history of encephalopathy, COPD, bedbound, currently resides in a correction facility presents for fever and hypoxia. Apparently patient's roommate was COVID positive. Patient formally comfort measures only however son wanted patient transferred to hospital for further evaluation and treatment. I spoke with the son, Addy Pepper, he still wishes mother to be DNR and DNI. PMH: As above PSH: Reviewed Social Hx: Currently resides in a correction facility Allergies: Coded Allergies: No Known Allergies (Unverified , 03/08/12) COVID-19 Screening Contact w/high risk pt: Yes Experienced COVID-19 symptoms?: Yes COVID-19 Testing performed VARNISHER PLASTICOATER: No Patient History Reviewed Nursing Documentation: PMH: Agreed; PSxH: Agreed Nursing Documentation-PMH Hx Hypertension: Yes Hx COPD: Yes Hx Cancer: No Hx Gastrointestinal Problems: Yes - dysphagia Hx Neurological Problems: Yes Hx Dementia: Yes Review of Systems All Other Systems: negative except mentioned in HPI Physical Exam Vital Signs Date Time Temp Pulse Resp B/P (MAP) Pulse Ox O2 Delivery O2 Flow Rate FiO2 09/23/19 18:16 102.0 115 20 117/70 (86) 91 Non-Rebreather 12.0 Sp02 EP Interpretation: reviewed, abnormal General Appearance: mild distress, Chronically Ill Head: normocephalic, atraumatic Eyes: bilateral eye PERRL, bilateral eye EOMI ENT: hearing grossly normal, moist mucus membranes Neck: supple, no bony tend Respiratory: no rhonchi, no retraction, respiratory distress - Mild respiratory distress noted Cardiovascular #1: normal peripheral pulses, regular rate, rhythm, no murmur Gastrointestinal: non tender, soft, non-distended, no guarding Neurologic: other - Lower extremities contracted at baseline. Patient responds to painful stimuli. Nonverbal. Skin: normal color, warm/dry Procedures Critical Care Time Critical Care Time Critical care is made on the patient due to presentation with suspected COVID- 19 and UTI requiring my acute intervention. Critical care time is 35 minutes and excludes procedures Medical Decision Making Diagnostic Impression: Primary Impression: Suspected COVID-19 virus infection Additional Impression: UTI (urinary tract infection) ER Course MDM: Differential diagnosis included but not limited to COVID-19, pneumonia, sepsis, UTI to name a few Clinical course-IV, septic work-up initiated, IV antibiotics given, coronavirus testing sent. Urinalysis was consistent with infection. IV antibiotics were given. I had a prolonged discussion with patient's son, Addy and did confirm that he wished patient to remain DNR and DNI no intubation. Patient's lactate was elevated so IV fluids were given, broad-spectrum antibiotics were given, patient will be admitted to the telemetry floor. As patient has close contact with a positive coronavirus patient I do suspect she has COVID-19 as well. IV Decadron was given. Labs - Laboratory Tests Test 09/23/19 20:00 White Blood Count 4.8 K/UL (4.8-10.8) Red Blood Count 4.23 M/UL (4.20-5.40) Hemoglobin 14.8 G/DL (12.0-16.0) Hematocrit 43.7 % (37.0-47.0) Mean Corpuscular Volume 103 FL (80-99) H Mean Corpuscular Hemoglobin 34.9 PG (27.0-31.0) H Mean Corpuscular Hemoglobin Concent 33.8 G/DL (32.0-36.0) Red Cell Distribution Width 12.3 % (11.6-14.8) Platelet Count 161 K/UL (150-450) Mean Platelet Volume 6.1 FL (6.5-10.1) L Neutrophils (%) (Auto) 79.7 % (45.0-75.0) H Lymphocytes (%) (Auto) 17.9 % (20.0-45.0) L Monocytes (%) (Auto) 1.9 % (1.0-10.0) Eosinophils (%) (Auto) 0.1 % (0.0-3.0) Basophils (%) (Auto) 0.4 % (0.0-2.0) Urine Color Yellow Urine Appearance Cloudy Urine pH 5 (4.5-8.0) Urine Specific [place] 1.020 (1.005-1.035) Urine Protein 4+ (NEGATIVE) H Urine Glucose (UA) 3+ (NEGATIVE) H Urine Ketones Negative (NEGATIVE) Urine Blood 4+ (NEGATIVE) H Urine Nitrite Positive (NEGATIVE) H Urine Bilirubin Negative (NEGATIVE) Urine Urobilinogen 1 MG/DL (0.0-1.0) H Urine Leukocyte Esterase 1+ (NEGATIVE) H Urine RBC 15-20 /HPF (0 - 2) H Urine WBC 10-15 /HPF (0 - 2) H Urine Squamous Epithelial Cells Few /LPF (NONE/OCC) Urine Bacteria Many /HPF (NONE) H Urine Granular Casts 0-2 /LPF (NONE) H Sodium Level 143 MMOL/L (136-145) Potassium Level 3.6 MMOL/L (3.5-5.1) Chloride Level 106 MMOL/L (98-107) Carbon Dioxide Level 25 MMOL/L (21-32) Anion Gap 13 mmol/L (5-15) Blood Urea Nitrogen 23 mg/dL (7-18) H Creatinine 0.9 MG/DL (0.55-1.30) Estimated Glomerular Filtration Rate 59.2 mL/min (>60) Glucose Level 308 MG/DL (74-106) H Lactic Acid Level 3.20 mmol/L (0.4-2.0) H Calcium Level 9.0 MG/DL (8.5-10.1) Total Bilirubin 0.9 MG/DL (0.2-1.0) Aspartate Amino Transferase (AST) 47 U/L (15-37) H Alanine Aminotransferase (ALT) 17 U/L (12-78) Alkaline Phosphatase 45 U/L (46-116) L Total Protein 7.6 G/DL (6.4-8.2) Albumin 2.5 G/DL (3.4-5.0) L Globulin 5.1 g/dL Albumin/Globulin Ratio 0.5 (1.0-2.7) L On reevaluation: Saturation improved on facemask, Plan-admission to the telemetry floor EKG Diagnostic Results Rate: normal Rhythm: other - Sinus tachycardia ST Segments: no acute changes Rhythm Strip Diag. Results EP Interpretation: yes Rate: 115 Rhythm: no PVC's, no ectopy Chest X-Ray Diagnostic Results Chest X-Ray Diagnostic Results : Chest X-Ray Ordered: Yes # of Views/Limited/Complete: 1 View Indication: Shortness of Breath EP Interpretation: Yes PA Xray: Interpretation reviewed Interpretation: other - Bilateral haziness noted, CHF versus multifocal pneumonia considered Last Vital Signs Date Time Temp Pulse Resp B/P (MAP) Pulse Ox O2 Delivery O2 Flow Rate FiO2 09/23/19 18:52 115 20 Non-Rebreather 12.0 09/23/19 18:16 102.0 117/70 (86) 91 Status: improved Disposition: ADMITTED INPATIENT Condition: Serious Referrals: NON PHYSICIAN (PCP) Nikita Carreon M.D. Sep 23, 2019 19:35
[2019-09-23 20:23] LABS: APPEARANCE,URINE CLOUDY; BILIRUBIN, URINE NEGATIVE (NEGATIVE); GLUCOSE, URINE (UA) 3+ (NEGATIVE); KETONES,URINE NEGATIVE (NEGATIVE); LEUKOCYTE ESTERASE ,URINE 1+ (NEGATIVE); NITRITE,URINE POSITIVE (NEGATIVE); PH,URINE 5 (4.5-8.0); PROTEIN,URINE 4+ (NEGATIVE); UROBILINOGEN,URINE 1 MG/DL (0.0-1.0)
[2019-09-23 20:25] LABS: COLOR,URINE YELLOW
[2019-09-23 20:26] LABS: ANION GAP 13 mmol/L (5-15); BLOOD UREA NITROGEN 23 mg/dL (7-18); CARBON DIOXIDE 25 MMOL/L (21-32); CHLORIDE 106 MMOL/L (98-107); CREATININE 0.9 MG/DL (0.55-1.30); POTASSIUM 3.6 MMOL/L (3.5-5.1); SODIUM 143 MMOL/L (136-145)
[2019-09-23 20:29] LABS: BASOPHILS % (AUTO) 0.4 % (0.0-2.0); EOSINOPHILS % (AUTO) 0.1 % (0.0-3.0); HEMATOCRIT 43.7 % (37.0-47.0); HEMOGLOBIN 14.8 G/DL (12.0-16.0); LYMPHOCYTES % (AUTO) 17.9 % (20.0-45.0); MEAN CORPUSCULAR VOLUME 103 FL (80-99); MONOCYTES % (AUTO) 1.9 % (1.0-10.0); NEUTROPHILS % (AUTO) 79.7 % (45.0-75.0); PLATELET COUNT 161 K/UL (150-450); RED BLOOD COUNT 4.23 M/UL (4.20-5.40); RED CELL DISTRIBUTION WIDTH 12.3 % (11.6-14.8); WHITE BLOOD COUNT 4.8 K/UL (4.8-10.8)
[2019-09-23 20:30] LABS: ALANINE AMINOTRANSFERASE 17 U/L (12-78); ALBUMIN 2.5 G/DL (3.4-5.0); ALBUMIN/GLOBULIN RATIO 0.5 (1.0-2.7); ALKALINE PHOSPHATASE 45 U/L (46-116); ASPARTATE AMINO TRANSFERASE 47 U/L (15-37); BILIRUBIN,TOTAL 0.9 MG/DL (0.2-1.0)
[2019-09-23 20:51] VITALS: BP 137/81
[2019-09-23] MEDS ORDERED: Piperacillin/Tazobactam 3.375 GM in NS 110 ML IVPB ONE (21:00)
[2019-09-23] MEDS ORDERED: dexAMETHasone 10mg/ml Inj IV ONE (21:00)
--- NOTE | 2019-09-23 22:34 | NUR ---
ED Nurse Note: report given to DANICA Villela. pt room is not ready upstairs, RN stated she will notify when it is
[2019-09-23 23:33] VITALS: BP 130/71
--- NOTE | 2019-09-24 00:05 | NUR ---
TRANSFER TO FLOOR: Patient transferred to [facility] via [facility] in stable condition via transport 19 protocol as ordered, per dr. Coello. Report given to Tika MISHRA.
--- NOTE | 2019-09-24 00:30 | NUR ---
NURSE NOTES: Received report from DANICA Chicas. Patient transferred to room 220-2 from E. via [facility] in Covid-10 isolation protocol. Patient is awake, alert and oriented x 0, non-verbal, obtunded. Placed monitor worker, shows Sinus tachycardia. IV site is on right hand G-22 saline lock that is patent and intact. On non-rebreather mask @ 15 Lpm saturating 90-91%. Safety measures are in placed, bed in lowest and locked position, side rails up x 2. Will call Primary MD for admission orders.
[2019-09-24 01:00] VITALS: BP 115/73
[2019-09-24] MEDS ORDERED: D5 1/2NS 1,000 ML IV SCH (01:30)
[2019-09-24 04:00] VITALS: BP 126/70
--- NOTE | 2019-09-24 07:20 | NUR ---
NURSE NOTES: Received report from DANICA Villela. Pt is stable and sleeping in bed with no S/S of distress at this time. The bed is at the lowest position, and call light is in reach. Pt is on 15L NRB saturating at 94%.
--- NOTE | 2019-09-24 07:21 | NUR ---
HAND-OFF: Report given to Yesi/Radha MISHRA. Patient is saturating 93% at this time. Plna of care endorsed.
[2019-09-24] MEDS ORDERED: Zolpidem 5mg tab ORAL PRN (07:30)
[2019-09-24] MEDS ORDERED: Miralax 17gm pkt ORAL PRN (07:30)
[2019-09-24 08:00] VITALS: BP 137/73
[2019-09-24] MEDS: Heparin 5000 units/ml inj SUBQ SCH ×2 (08:18→20:18)
[2019-09-24 08:36] LABS: HEMATOCRIT 39.5 % (37.0-47.0); HEMOGLOBIN 13.5 G/DL (12.0-16.0); MEAN CORPUSCULAR VOLUME 103 FL (80-99); PLATELET COUNT 144 K/UL (150-450); RED BLOOD COUNT 3.84 M/UL (4.20-5.40); RED CELL DISTRIBUTION WIDTH 11.5 % (11.6-14.8); WHITE BLOOD COUNT 4.6 K/UL (4.8-10.8)
[2019-09-24 08:50] LABS: ANION GAP 14 mmol/L (5-15); BLOOD UREA NITROGEN 22 mg/dL (7-18); CALCIUM 8.4 MG/DL (8.5-10.1); CARBON DIOXIDE 23 MMOL/L (21-32); CHLORIDE 107 MMOL/L (98-107); CREATININE 0.8 MG/DL (0.55-1.30); SODIUM 145 MMOL/L (136-145)
[2019-09-24] MEDS: Donepezil 10mg tab ORAL SCH (09:00)
[2019-09-24] MEDS: Memantine 10mg tab ORAL SCH ×2 (09:00→17:56)
[2019-09-24] MEDS ORDERED: Calcium Carbonate 500mg w/Vit D 200iu tab ORAL SCH (09:00)
[2019-09-24] MEDS ORDERED: celeBREX 200mg Cap **SURGERY PATIENTS ONLY ORAL SCH (09:00)
--- NOTE | 2019-09-24 09:00 | NUR ---
NURSE NOTES: Patient's very lethargic, assessed patient's swallow ability and patient unable to swallow thicken apple sauce, coughed on thin liquid. Therefore, patient cannot tolerate to swallow pills. Non-administered all PO pills at this time until speech therapist comes to evaluate.
[2019-09-24 09:04] LABS: POTASSIUM 2.6 MMOL/L (3.5-5.1)
--- NOTE | 2019-09-24 09:35 | NUR ---
NURSE NOTES: Dr. Coello ordered to call Dr. Mclean for patient's claims associate. Dr. Mclean ordered 40mEq IVPB for patient. Order acknowledged and carried out.
--- NOTE | 2019-09-24 11:28 | NUR ---
PT Note PT ailyn completed. Patient is dependent in all mobility; unable to participate with any activity. Patient is at baseline level of function. No further PT recommended at this time. Addendum: 09/24/19 at 1129 by REFUGIO FOSTER PT Amended: Links added.
--- NOTE | 2019-09-24 11:46 | Consultation ---
Consult Note Consult Note I am asked to evaluate the patient at the request of Dr. Heber Coello for fluid and electrolyte management Patient Arabic, unable to give any history. Patient had previous multiple admission here at [facility]. Charts reviewed. Patient examined. Emergency room note: Chief Complaint: Fever HPI: 88-year-old female history of encephalopathy, COPD, bedbound, currently resides in a group home facility presents for fever and hypoxia. Apparently patient's roommate was COVID positive. Patient formally comfort measures only however son wanted patient transferred to hospital for further evaluation and treatment. I spoke with the son, Addy Pepper, he still wishes mother to be DNR and DNI. Social Hx: Currently resides in a group home facility Allergies: No Known Allergies (Unverified , 03/08/12) COVID-19 Screening Contact w/high risk pt: Yes Experienced COVID-19 symptoms?: Yes COVID-19 Testing performed DIRECTOR OF HOME HEALTH SERVICES: No Hx Hypertension: Yes Hx COPD: Yes Hx Cancer: No Hx Gastrointestinal Problems: Yes - dysphagia Hx Neurological Problems: Yes Hx Dementia: Yes Vital Signs Date Time Temp Pulse Resp B/P (MAP) Pulse Ox O2 Delivery O2 Flow Rate FiO2 09/23/19 18:16 102.0 115 20 117/70 (86) 91 Non-Rebreather 12.0 Sp02 EP Interpretation: reviewed, abnormal, on nonrebreather mask General Appearance: mild distress, Chronically Ill Head: normocephalic, atraumatic Eyes: Non icteric ENT: Externally within normal limit Neck: Rigid to all direction Respiratory: Decreased breath sound at bases, respiratory distress - Mild respiratory distress noted Cardiovascular #1: Tachycardic Gastrointestinal: non tender, soft, non-distended, no guarding Neurologic: other - Lower extremities contracted at baseline. Patient responds to painful stimuli. Nonverbal. Skin: normal color, warm/dry . Assessment/Plan Hypokalemia Hypoalbuminemia Suspected cold with 19 virus infection UTI High aspiration risk Alzheimer's dementia DNR Plan: IV hydration with potassium N.p.o. except medications Speech therapy evaluation Antibiotics Monitor electrolytes Per orders Julio Mclean MD Sep 24, 2019 11:46
[2019-09-24 12:00] VITALS: BP 120/64
[2019-09-24] MEDS: 1/2NS w/KCl 20mEq 1000ml 1,000 ML IV SCH (12:53)
[2019-09-24] MEDS: Piperacillin/Tazobactam 3.375 GM in NS 110 ML IVPB SCH ×2 (12:54→20:16)
--- NOTE | 2019-09-24 13:43 | NUR ---
CASE MANAGEMENT:INITIAL REVIEW 88 YR OLD FEMALE BIBA FROM [facility] CC;FEVER SI;SUSPECTED COVID-19. UTI. 102 115 30 117/70 91% 15 L NRM BUN 23 BG 308 LAC ACID 3.20 AST 47 ALB 2.5 UA+ PROTEIN, GLUCOSE, BLOOD, NITRITE, UROBILINOGEN, LEUKOCYTE ESTERASE, RBC, WBC, BACTERIA, GRANULAR CASTS URINE CULTURE (+) ~ GRAM NEGATIVE HALI COVID-19 PCR ~ RESULT PENDING IS;DECADRON IV ZOSYN IV IVF NS BOLUS ADMITTED TO TELE 09/23/19 @ 2331 TELE STATUS DCP;FROM [facility]
--- NOTE | 2019-09-24 15:37 | Consultation ---
History of Present Illness General Date patient seen: Sep 24, 2019 Chief Complaint: Fever Present Illness HPI This is a 88-year-old female multiple medical comorbidities including history of encephalopathy, COPD, bedbound, currently resides in a [facility] facility presents for fever and hypoxia. Apparently patient's roommate was COVID positive. Patient formally comfort measures only however son wanted patient transferred to hospital for further evaluation and treatment. per report son, Addy Pepper, he still wishes mother to be DNR and DNI. noted to have abnormal labs, malnutrition, and decubitus. surgery called to evaluate and assist with care. patient seen, chart reviewed, patient examined. Allergies: Coded Allergies: No Known Allergies (Unverified , 03/08/12) Medication History Scheduled Calcium Carbonate/Vitamin D3 (Oyster Shell 500 Mg + Vit D Tb), 1 EACH PO BID, ( Reported) Celecoxib* (Celebrex*), 200 MG ORAL DAILY, (Reported) Ferrous Sulfate* (Ferrous Sulfate*), 325 MG ORAL DAILY, (Reported) Folic Acid* (Folic Acid*), 1 MG ORAL DAILY, (Reported) Megestrol Acetate (Megestrol Acetate), 40 MG PO BID, (Reported) No Known Medications* (NKM - No Known Medications*), 0 ., (Reported) Scheduled PRN Acetaminophen* (Acetaminophen 325MG Tablet*), 650 MG ORAL Q4H PRN Polyethylene Glycol 3350* (Miralax*), 17 GM ORAL HSPRN PRN Zolpidem Tartrate* (Ambien*), 5 MG ORAL HSPRN PRN Miscellaneous Medications Memantine HCl/Donepezil HCl (Namzaric 28 mg-10 mg Capsule), 1 EACH PO, (Reported ) Patient History Limited by: age, medical condition History Provided By: Medical Record, PMD Healthcare decision maker Resuscitation status Advanced Directive on File Past Medical/Surgical History Past Medical/Surgical History: (1) At high risk for aspiration (2) GIB (gastrointestinal bleeding) (3) Decubitus skin ulcer (4) COPD exacerbation (5) UTI (urinary tract infection) (6) Suspected COVID-19 virus infection (7) Dementia (8) Protein-calorie malnutrition, severe (9) Advanced age (10) Alzheimer's dementia Review of Systems All Other Systems: negative except mentioned in HPI ROS Narrative limited given medical condition Physical Exam General Appearance: confused, mild distress Lines, tubes and drains: peripheral HEENT: mucous membranes moist, PERRL Neck: normal alignment, supple, normal inspection Respiratory/Chest: no respiratory distress, no accessory muscle use, decreased breath sounds Cardiovascular/Chest: normal rate, regular rhythm Abdomen: soft, no organomegaly, no mass, other Genitourinary/Rectal: normal rectal exam Extremities: normal inspection, no calf tenderness, slow capillary refill Skin Exam: warm/dry Neurologic: other Last 24 Hour Vital Signs Date Time Temp Pulse Resp B/P (MAP) Pulse Ox O2 Delivery O2 Flow Rate FiO2 09/24/19 12:00 98.1 120 22 120/64 (82) 93 09/24/19 12:00 108 09/24/19 10:08 Non-Rebreather 09/24/19 08:00 112 09/24/19 08:00 99.3 110 22 137/73 (94) 09/24/19 04:00 99.8 109 23 126/70 (88) 90 09/24/19 04:00 110 09/24/19 01:00 100.4 112 24 115/73 (87) 91 09/24/19 00:52 116 09/24/19 00:05 99.2 107 27 130/71 96 Non-Rebreather 15.0 09/23/19 23:33 Non-Rebreather 15.0 09/23/19 23:33 99.2 107 27 130/71 96 Non-Rebreather 15.0 09/23/19 22:00 99.3 09/23/19 20:51 111 30 137/81 96 Non-Rebreather 15.0 09/23/19 19:00 101.8 113 30 132/76 93 Non-Rebreather 15.0 09/23/19 18:52 115 20 Non-Rebreather 12.0 09/23/19 18:16 102.0 115 20 117/70 (86) 91 Non-Rebreather 12.0 Intake and Output 09/23/19 09/24/19 19:00 07:00 Intake Total 240 ml Output Total 200 ml Balance 40 ml Intake Oral 0 ml IV Total 240 ml Output Urine Total 200 ml # Voids 1 1 Laboratory Tests Test 09/23/19 20:00 09/23/19 22:20 09/24/19 05:30 White Blood Count 4.8 K/UL (4.8-10.8) 4.6 K/UL (4.8-10.8) L Red Blood Count 4.23 M/UL (4.20-5.40) 3.84 M/UL (4.20-5.40) L Hemoglobin 14.8 G/DL (12.0-16.0) 13.5 G/DL (12.0-16.0) Hematocrit 43.7 % (37.0-47.0) 39.5 % (37.0-47.0) Mean Corpuscular Volume 103 FL (80-99) H 103 FL (80-99) H Mean Corpuscular Hemoglobin 34.9 PG (27.0-31.0) H 35.0 PG (27.0-31.0) H Mean Corpuscular Hemoglobin Concent 33.8 G/DL (32.0-36.0) 34.1 G/DL (32.0-36.0) Red Cell Distribution Width 12.3 % (11.6-14.8) 11.5 % (11.6-14.8) L Platelet Count 161 K/UL (150-450) 144 K/UL (150-450) L Mean Platelet Volume 6.1 FL (6.5-10.1) L 6.2 FL (6.5-10.1) L Neutrophils (%) (Auto) 79.7 % (45.0-75.0) H % (45.0-75.0) Lymphocytes (%) (Auto) 17.9 % (20.0-45.0) L % (20.0-45.0) Monocytes (%) (Auto) 1.9 % (1.0-10.0) % (1.0-10.0) Eosinophils (%) (Auto) 0.1 % (0.0-3.0) % (0.0-3.0) Basophils (%) (Auto) 0.4 % (0.0-2.0) % (0.0-2.0) Urine Color Yellow Urine Appearance Cloudy Urine pH 5 (4.5-8.0) Urine Specific [place] 1.020 (1.005-1.035) Urine Protein 4+ (NEGATIVE) H Urine Glucose (UA) 3+ (NEGATIVE) H Urine Ketones Negative (NEGATIVE) Urine Blood 4+ (NEGATIVE) H Urine Nitrite Positive (NEGATIVE) H Urine Bilirubin Negative (NEGATIVE) Urine Urobilinogen 1 MG/DL (0.0-1.0) H Urine Leukocyte Esterase 1+ (NEGATIVE) H Urine RBC 15-20 /HPF (0 - 2) H Urine WBC 10-15 /HPF (0 - 2) H Urine Squamous Epithelial Cells Few /LPF (NONE/OCC) Urine Bacteria Many /HPF (NONE) H Urine Granular Casts 0-2 /LPF (NONE) H Sodium Level 143 MMOL/L (136-145) 145 MMOL/L (136-145) Potassium Level 3.6 MMOL/L (3.5-5.1) 2.6 MMOL/L (3.5-5.1) *L Chloride Level 106 MMOL/L (98-107) 107 MMOL/L (98-107) Carbon Dioxide Level 25 MMOL/L (21-32) 23 MMOL/L (21-32) Anion Gap 13 mmol/L (5-15) 14 mmol/L (5-15) Blood Urea Nitrogen 23 mg/dL (7-18) H 22 mg/dL (7-18) H Creatinine 0.9 MG/DL (0.55-1.30) 0.8 MG/DL (0.55-1.30) Estimat Glomerular Filtration Rate 59.2 mL/min (>60) > 60 mL/min (>60) Glucose Level 308 MG/DL (74-106) H 289 MG/DL (74-106) H Lactic Acid Level 3.20 mmol/L (0.4-2.0) H 2.20 mmol/L (0.66-2.22) Calcium Level 9.0 MG/DL (8.5-10.1) 8.4 MG/DL (8.5-10.1) L Total Bilirubin 0.9 MG/DL (0.2-1.0) Aspartate Amino Transf (AST/SGOT) 47 U/L (15-37) H Alanine Aminotransferase (ALT/SGPT) 17 U/L (12-78) Alkaline Phosphatase 45 U/L (46-116) L Total Protein 7.6 G/DL (6.4-8.2) Albumin 2.5 G/DL (3.4-5.0) L Globulin 5.1 g/dL Albumin/Globulin Ratio 0.5 (1.0-2.7) L Differential Total Cells Counted 100 Neutrophils % (Manual) 86 % (45-75) H Lymphocytes % (Manual) 11 % (20-45) L Monocytes % (Manual) 3 % (1-10) Eosinophils % (Manual) 0 % (0-3) Basophils % (Manual) 0 % (0-2) Band Neutrophils 0 % (0-8) Platelet Estimate Decreased L Platelet Morphology Normal Anisocytosis 1+ Macrocytosis 1+ Microbiology Date/Time Source Procedure Growth Status 09/23/19 20:00 Urine,Clean Catch Urine Culture - Preliminary Gram Negative Drake Resulted Height (Feet): 4 Height (Inches): 9.00 Weight (Pounds): 110 Medications Current Medications Medications (Trade) Dose Ordered Sig/Lisa Route PRN Reason Start Time Stop Time Status Last Admin Dose Admin Acetaminophen (Tylenol) 650 mg Q6H PRN ORAL Temp >100.5 09/24/19 01:30 10/24/19 01:29 Donepezil HCl (Aricept) 10 mg DAILY ORAL 09/24/19 09:00 10/24/19 08:59 Famotidine (Pepcid I.v.) 20 mg Q12HR IVP 09/24/19 12:00 10/24/19 11:59 09/24/19 14:02 Heparin Sodium (Porcine) (Heparin 5000 units/ml) 5,000 units EVERY 12 HOURS SUBQ 09/24/19 09:00 11/08/19 08:59 09/24/19 08:18 Megestrol Acetate (Megace) 40 mg BID ORAL 09/24/19 09:00 09/29/19 08:59 Memantine (Namenda) 10 mg BID ORAL 09/24/19 09:00 10/24/19 08:59 Piperacillin Sod/ Tazobactam Sod 3.375 gm/Sodium Chloride 110 ml @ 27.5 mls/hr Q8H IVPB 09/24/19 12:00 10/01/19 11:59 09/24/19 12:54 Polyethylene Glycol (Miralax) 17 gm HSPRN PRN ORAL Constipation 09/24/19 07:30 10/24/19 07:29 Sodium 1,000 ml @ 50 mls/hr Q20H IV 09/24/19 13:00 10/24/19 12:59 09/24/19 12:53 Zolpidem Tartrate (Ambien) 5 mg HSPRN PRN ORAL Agitation 09/24/19 07:30 10/01/19 07:29 Assessment/Plan Problem List: (1) UTI (urinary tract infection) ICD Codes: N39.0 - Urinary tract infection, site not specified SNOMED: 56137308 (2) Decubitus skin ulcer Assessment & Plan: Pt presented on admission with multiple Pressure injuries, Hypertrophic Scar with resurfacing Pressure injury. Purple and indurated area at Sacrococcygeal area(L)2.2cm x (W)3.5cm with surrounding hypertrophy. (L)7cm x (W)9cm. L Heel is boggy with non-Blanching erythema. R Heel is Maroon and fluctuant. Pt has non-rebreather Mask and linear erythema with indentations noted to both cheeks. Skin barrier applied and soft padding placed between elastic and skin to minimize friction and pressure. Tx.Plan: Apply Moisture Barrier Paste to Sacrum. Cover with Optifoam drsg. Change every 3 days and prn. Apply Cavilon Skin Barrier to Malleoli and each heel. Cover each site with Optifoam drsg. Change every 7 days and prn. Apply Cavilon Skin Barrier to R and L Cheeks and both earlobes. Cover each cheek with Optifoam drsgs or Soft pads while pt is using oxygen mask. Reposition at least every 2hours or as tolerated. Off-load heels with Pillows APM/ZOHRA Mattress overlay. ICD Codes: L89.90 - Pressure ulcer of unspecified site, unspecified stage SNOMED: 150442097 (3) GIB (gastrointestinal bleeding) ICD Codes: K92.2 - Gastrointestinal hemorrhage, unspecified SNOMED: 81108829 (4) COPD exacerbation ICD Codes: J44.1 - Chronic obstructive pulmonary disease with (acute) exacerbation SNOMED: 923757587 (5) At high risk for aspiration ICD Codes: Z91.89 - Other specified personal risk factors, not elsewhere classified SNOMED: 965651754 (6) Suspected COVID-19 virus infection ICD Codes: Z20.828 - Contact with and (suspected) exposure to other viral communicable diseases SNOMED: 055103426 (7) Dementia ICD Codes: F03.90 - Unspecified dementia without behavioral disturbance SNOMED: 70016651 (8) Protein-calorie malnutrition, severe Assessment & Plan: DAILY ESTIMATED NEEDS: Needs based on Pulmonary, wounds 50kg (EMR wt) 25-35 kcals/kg 2508-1984 total kcals 1.25-2 g protein/kg 63-100 g total protein 25-30 mL/kcal mL/kg 3504-7239 total fluid mLs NUTRITION DIAGNOSIS: Increased kcal,protein, and MVI needs r/t wound healing as evidenced by multiple areas of skin breakdown, refer to WC eval. CURRENT DIET:NPO PO DIET RECOMMENDATIONS: Liberalized, regular diet as medically able (texture per RESOLUTE PROFESSIONAL) ADDITIONAL RECOMMENDATIONS: Ht 5'0", wt 30.5kg (67#) on last adm fall 2018, plz weigh on calibrated bed RESOLUTE PROFESSIONAL eval when appropriate for diet Wound care: Kyler BID Glucerna TID with meals NISS with meals for glycemic control Monitor lytes + hydration status daily, replete as needed (low mg) . ICD Codes: E43 - Unspecified severe protein-calorie malnutrition SNOMED: 484957697 (9) Advanced age ICD Codes: R54 - Age-related physical debility SNOMED: 77573178 (10) Alzheimer's dementia ICD Codes: G30.9 - Alzheimer's disease, unspecified; F02.80 - Dementia in other diseases classified elsewhere without behavioral disturbance SNOMED: 68363820 Raghav Moon Sep 24, 2019 15:37
[2019-09-24 16:00] VITALS: BP 127/60
--- NOTE | 2019-09-24 16:01 | NUR ---
NURSE NOTES:WOUND CARE NOTES:Pt presented on admission with multiple Pressure injuries,Hypertrophic Scar with resurfacing Pressure injury. Purple and indurated area at Sacrococcygeal area(L)2.2cm x (W)3.5cm with surrounding hypertrophy. (L)7cm x (W)9cm. L Heel is boggy with non-Blanching erythema. R Heel is Maroon and fluctuant. Pt has non-rebreather Mask and linear erythema with indentations noted to both cheeks. Skin barrier applied and soft padding placed between elastic and skin to minimize friction and pressure. Tx.Plan: Apply Moisture Barrier Paste to Sacrum. Cover with Optifoam drsg. Change every 3 days and prn. Apply Cavilon Skin Barrier to Malleoli and each heel. Cover each site with Optifoam drsg. Change every 7 days and prn. Apply Cavilon Skin Barrier to R and L Cheeks and both earlobes. Cover each cheek with Optifoam drsgs or Soft pads while pt is using oxygen mask. Reposition at least every 2hours or as tolerated. Off-load heels with Pillows APM/ZOHRA Mattress overlay.
--- NOTE | 2019-09-24 16:14 | Cardiac Electrophysiology PN ---
Subjective Subjective [id number] Objective Last 24 Hour Vital Signs Date Time Temp Pulse Resp B/P (MAP) Pulse Ox O2 Delivery O2 Flow Rate FiO2 09/24/19 12:00 98.1 120 22 120/64 (82) 93 09/24/19 12:00 108 09/24/19 10:08 Non-Rebreather 09/24/19 08:00 112 09/24/19 08:00 99.3 110 22 137/73 (94) 09/24/19 04:00 99.8 109 23 126/70 (88) 90 09/24/19 04:00 110 09/24/19 01:00 100.4 112 24 115/73 (87) 91 09/24/19 00:52 116 09/24/19 00:05 99.2 107 27 130/71 96 Non-Rebreather 15.0 09/23/19 23:33 Non-Rebreather 15.0 09/23/19 23:33 99.2 107 27 130/71 96 Non-Rebreather 15.0 09/23/19 22:00 99.3 09/23/19 20:51 111 30 137/81 96 Non-Rebreather 15.0 09/23/19 19:00 101.8 113 30 132/76 93 Non-Rebreather 15.0 09/23/19 18:52 115 20 Non-Rebreather 12.0 09/23/19 18:16 102.0 115 20 117/70 (86) 91 Non-Rebreather 12.0 Intake and Output 09/23/19 09/24/19 19:00 07:00 Intake Total 240 ml Output Total 200 ml Balance 40 ml Intake Oral 0 ml IV Total 240 ml Output Urine Total 200 ml # Voids 1 1 Laboratory Tests Test 09/23/19 20:00 09/23/19 22:20 09/24/19 05:30 White Blood Count 4.8 K/UL (4.8-10.8) 4.6 K/UL (4.8-10.8) L Red Blood Count 4.23 M/UL (4.20-5.40) 3.84 M/UL (4.20-5.40) L Hemoglobin 14.8 G/DL (12.0-16.0) 13.5 G/DL (12.0-16.0) Hematocrit 43.7 % (37.0-47.0) 39.5 % (37.0-47.0) Mean Corpuscular Volume 103 FL (80-99) H 103 FL (80-99) H Mean Corpuscular Hemoglobin 34.9 PG (27.0-31.0) H 35.0 PG (27.0-31.0) H Mean Corpuscular Hemoglobin Concent 33.8 G/DL (32.0-36.0) 34.1 G/DL (32.0-36.0) Red Cell Distribution Width 12.3 % (11.6-14.8) 11.5 % (11.6-14.8) L Platelet Count 161 K/UL (150-450) 144 K/UL (150-450) L Mean Platelet Volume 6.1 FL (6.5-10.1) L 6.2 FL (6.5-10.1) L Neutrophils (%) (Auto) 79.7 % (45.0-75.0) H % (45.0-75.0) Lymphocytes (%) (Auto) 17.9 % (20.0-45.0) L % (20.0-45.0) Monocytes (%) (Auto) 1.9 % (1.0-10.0) % (1.0-10.0) Eosinophils (%) (Auto) 0.1 % (0.0-3.0) % (0.0-3.0) Basophils (%) (Auto) 0.4 % (0.0-2.0) % (0.0-2.0) Urine Color Yellow Urine Appearance Cloudy Urine pH 5 (4.5-8.0) Urine Specific [place] 1.020 (1.005-1.035) Urine Protein 4+ (NEGATIVE) H Urine Glucose (UA) 3+ (NEGATIVE) H Urine Ketones Negative (NEGATIVE) Urine Blood 4+ (NEGATIVE) H Urine Nitrite Positive (NEGATIVE) H Urine Bilirubin Negative (NEGATIVE) Urine Urobilinogen 1 MG/DL (0.0-1.0) H Urine Leukocyte Esterase 1+ (NEGATIVE) H Urine RBC 15-20 /HPF (0 - 2) H Urine WBC 10-15 /HPF (0 - 2) H Urine Squamous Epithelial Cells Few /LPF (NONE/OCC) Urine Bacteria Many /HPF (NONE) H Urine Granular Casts 0-2 /LPF (NONE) H Sodium Level 143 MMOL/L (136-145) 145 MMOL/L (136-145) Potassium Level 3.6 MMOL/L (3.5-5.1) 2.6 MMOL/L (3.5-5.1) *L Chloride Level 106 MMOL/L (98-107) 107 MMOL/L (98-107) Carbon Dioxide Level 25 MMOL/L (21-32) 23 MMOL/L (21-32) Anion Gap 13 mmol/L (5-15) 14 mmol/L (5-15) Blood Urea Nitrogen 23 mg/dL (7-18) H 22 mg/dL (7-18) H Creatinine 0.9 MG/DL (0.55-1.30) 0.8 MG/DL (0.55-1.30) Estimat Glomerular Filtration Rate 59.2 mL/min (>60) > 60 mL/min (>60) Glucose Level 308 MG/DL (74-106) H 289 MG/DL (74-106) H Lactic Acid Level 3.20 mmol/L (0.4-2.0) H 2.20 mmol/L (0.66-2.22) Calcium Level 9.0 MG/DL (8.5-10.1) 8.4 MG/DL (8.5-10.1) L Total Bilirubin 0.9 MG/DL (0.2-1.0) Aspartate Amino Transf (AST/SGOT) 47 U/L (15-37) H Alanine Aminotransferase (ALT/SGPT) 17 U/L (12-78) Alkaline Phosphatase 45 U/L (46-116) L Total Protein 7.6 G/DL (6.4-8.2) Albumin 2.5 G/DL (3.4-5.0) L Globulin 5.1 g/dL Albumin/Globulin Ratio 0.5 (1.0-2.7) L Differential Total Cells Counted 100 Neutrophils % (Manual) 86 % (45-75) H Lymphocytes % (Manual) 11 % (20-45) L Monocytes % (Manual) 3 % (1-10) Eosinophils % (Manual) 0 % (0-3) Basophils % (Manual) 0 % (0-2) Band Neutrophils 0 % (0-8) Platelet Estimate Decreased L Platelet Morphology Normal Anisocytosis 1+ Macrocytosis 1+ Microbiology Date/Time Source Procedure Growth Status 09/23/19 20:00 Urine,Clean Catch Urine Culture - Preliminary Gram Negative Drake Resulted Parish Smith MD Sep 24, 2019 16:14
--- NOTE | 2019-09-24 17:45 | Consultation ---
DATE OF CONSULTATION: 09/24/2019 INFECTIOUS DISEASE CONSULTATION REFERRING PHYSICIAN: Heber Coello M.D. REASON FOR CONSULTATION: Possibility of COVID-19 pneumonia. HISTORY OF PRESENTING ILLNESS: This is an 88-year-old lady with history of COPD, encephalopathy, who [facility] facility with fever and hypoxia. Her roommate was COVID-19 positive. She is on comfort measures, but the son wanted her transferred to the hospital, and she is DNR/DNI and infectious disease consultation has been obtained for antibiotics. PAST MEDICAL HISTORY: 1. History of COPD. 2. Hypertension. 3. Dementia. SOCIAL HISTORY: Unknown. FAMILY HISTORY: Unknown. REVIEW OF SYSTEMS: Unable to obtain currently. MEDICATIONS: As an inpatient, she is on potassium, subcu heparin, calcium, ferrous sulfate, folic acid, megestrol, Aricept, Namenda, MiraLAX, Ambien, Tylenol. She has received dexamethasone in the ER and Zosyn. ALLERGIES: No known drug allergies. PHYSICAL EXAMINATION: VITAL SIGNS: Temperature 99.3, T-max of 102, pulse of 110, respiratory rate 22, blood pressure 113/73. She is on 15 liters of oxygen with O2 sat of 90%. Examination deferred due to possibility of COVID-19. LABORATORY AND DIAGNOSTIC DATA: White count 4.6, hemoglobin 13.5, hematocrit 39.5, MCV 103, platelet count of 144. Sodium 145, potassium 2.6, chloride 107, bicarb 23, BUN 22, creatinine 0.8, glucose 289, calcium 8.4, total bilirubin 0.9, AST 47, ALT 17, alkaline phosphatase 45, total protein 7.6, albumin 2.5. UA showing 10-15 white cells. Urine culture is showing gram-negative rods. ASSESSMENT: This is an 88-year-old lady with history of COPD, hypertension, dementia, who comes in with fevers and is found to have: 1. Gram-negative urinary tract infection. 2. We would like to rule out COVID-19 pneumonia. 3. COPD. 4. Hypertension. 5. Dementia. PLAN: 1. We will start the patient on Zosyn. 2. We will order COVID-19 testing. 3. Continue isolation. 4. We will follow up cultures and adjust antibiotics accordingly. I would like to thank, Dr. Heber Coello, for this consultation. Marilyn Kulkarni M.D. DR: PAPITO JOB#: [id number] CC: Heber Coello D.O.
--- NOTE | 2019-09-24 19:23 | NUR ---
HAND-OFF: Report given to DANICA Villela. Patient's stable. Plan of care endorsed.
--- NOTE | 2019-09-24 19:30 | NUR ---
NURSE NOTES: Received report from DANICA Key. Patient is awake, alert and oriented x 0, non-verbal, obtunded. On non-rebreather mask @ 13 Lpm, saturating 92 %. On NPO except medications and ice chips. commodities requirements analyst is in place, shows sinus tachycardia. IV site is on right hand G-22 running fluid of 1/2 NS + 20 meqs KCL @ 60 cc/hour that is asymptomatic, patent and intact. Safety measures are in placed, bed in lowest and locked position, side rails up x 2. Call light button and bedside table within reach. Will continue plan of care.
[2019-09-24 20:00] VITALS: BP 122/66
--- NOTE | 2019-09-24 20:00 | Consultation ---
DATE OF CONSULTATION: 09/24/2019 PULMONARY CONSULTATION CONSULTING PHYSICIAN: Raymond Alcaraz MD. HISTORY OF PRESENT ILLNESS: This is an 88-year-old female who is a detention resident. She has a history of advanced dementia, chronic encephalopathy, COPD, and bed-bound status. The patient is noted to be DNR/DNI. The patient was transferred after her roommate was found to be COVID-19 positive. The patient is DNR/DNI. However, family still wanted the patient to be evaluated and treated for this condition. PAST MEDICAL HISTORY: Chronic dysphagia, COPD, hypertension, dementia. REVIEW OF SYSTEMS: Not obtainable. HOME MEDICATIONS: Reviewed and reconciled. PHYSICAL EXAMINATION: GENERAL: Reveals elderly female. HEENT: Unremarkable. LUNGS: Clear breath sounds bilaterally. ABDOMEN: Soft. EXTREMITIES: There is no edema. VITAL SIGNS: Currently, she is non-rebreather mask with 100% oxygen. Saturations are measured at 92%. Blood pressure 120/60, heart rate 110. She is afebrile, respirations are 22. LABORATORY DATA: Lab testing shows potassium 2.6, otherwise normal CBC and BMP. There is mild leukopenia with a white count of 4.6, platelet count is 144,000. X-ray chest shows basilar infiltrates. IMPRESSION: 1. UTI. 2. Suspect COVID-19 pneumonia. 3. Dementia. 4. COPD. 5. Encephalopathy. DISCUSSION: Admit to the hospital. DNI status to maintain. The patient needs broad-spectrum antibiotics, IV fluids, replacement of potassium. She may be a candidate for remdesivir and steroids. We will defer to ID. We will follow dispersion mixer. We will order oxygen and pulmonary hygiene. Currently a non-rebreather mask. Raymond Alcaraz M.D. DR: Gifty JOB#: [id number] CC:
[2019-09-24] MEDS: Acetaminophen 650 MG SUPP RECTAL PRN (20:27)
--- NOTE | 2019-09-24 21:30 | Consultation ---
DATE OF CONSULTATION: 09/24/2019 CARDIOLOGY CONSULTATION CONSULTING PHYSICIAN: Parish Smith M.D. REFERRING PHYSICIAN: Heber Coello D.O. REASON FOR CONSULTATION: Tachycardia. HISTORY OF PRESENT ILLNESS: The patient is an 88-year-old lady with history of encephalopathy, COPD, bed-bound who resides in a nursing facility, was brought to the hospital for fever and hypoxia. The patient's roommate was COVID positive. The patient was admitted to rule out COVID. The patient is nonverbal. No DNR/DNI. While the patient on telemetry, had runs of supraventricular tachycardia. A Cardiology consultation was obtained for further evaluation. Per RN, patient is not eating and does not have a NG tube or G-tube and can take meds only via intravenously. REVIEW OF SYSTEMS: Cannot be obtained. PAST MEDICAL HISTORY: As mentioned above. FAMILY HISTORY: Noncontributory. SOCIAL HISTORY: long term resident. Does not smoke or drink alcohol. PHYSICAL EXAMINATION: VITAL SIGNS: Blood pressure 132/70, pulse is 115, respiration is 20, and she is afebrile. HEAD AND NECK: Showed no JVD. LUNGS: Coarse rhonchi. CARDIOVASCULAR: Shows regular S1 and S2 with no gallop. ABDOMEN: Soft. EXTREMITIES: 1+ pitting edema. LABORATORY AND DIAGNOSTIC DATA: Labs show white count of 4.2, hemoglobin 13, hematocrit of 39, and platelet count is 144. Sodium is 145, potassium is 2.6, BUN of 22, creatinine 0.8 and glucose of 289. Lactic acid 3.2. Urinalysis is suggestive of UTI. ASSESSMENT AND PLAN: 1. Tachycardia, likely due to sinus tachycardia due to UTI and dehydration. The patient's glucose is not controlled either. We will get an echocardiogram for further evaluation. We will watch the patient on telemetry. The patient is DNR/DNI. 2. Severe hypokalemia. Potassium 2.6. Will replace intravenously. 3. Lactic acidosis. Patient was started on IV antibiotic for her sepsis. 4. Nonverbal. 5. DNR/DNI. 6. Advanced dementia. Thank you very much for allowing me to participate in the care of this patient. Please do not hesitate to contact me for any questions regarding my evaluation. Parish Smith M.D. DR: IZABEL JOB#: [id number] CC:
[2019-09-25] VITALS: BP 115/59
[2019-09-25 04:00] VITALS: BP 112/67
[2019-09-25] MEDS: Piperacillin/Tazobactam 3.375 GM in NS 110 ML IVPB SCH ×3 (04:06→20:38)
[2019-09-25 07:36] LABS: HEMATOCRIT 39.2 % (37.0-47.0); HEMOGLOBIN 13.3 G/DL (12.0-16.0); MEAN CORPUSCULAR VOLUME 103 FL (80-99); PLATELET COUNT 139 K/UL (150-450); RED BLOOD COUNT 3.81 M/UL (4.20-5.40); RED CELL DISTRIBUTION WIDTH 11.3 % (11.6-14.8); WHITE BLOOD COUNT 5.9 K/UL (4.8-10.8)
--- NOTE | 2019-09-25 07:47 | NUR ---
HAND-OFF: Report given to DANICA Key. Patient is saturating 91% on 13Liters non-rebreather mask. Plan of care endorsed.
--- NOTE | 2019-09-25 07:55 | NUR ---
NURSE NOTES: Received report from DANICA Villela. Pt is stable and sleeping in bed with no S/S of distress at this time. Pt is on 15L NRB saturating at 92%. Pt bed is locked and at lowest position, call light in reach and nonslip socks applied. IV sites are both dry and patent with no S Addendum: 09/25/19 at 0758 by Radha Lamb RN RN NURSE NOTES: Received report from DANICA Villela. Pt is stable and sleeping in bed with no S/S of distress at this time. Pt is on 15L NRB saturating at 92%. Pt bed is locked and at lowest position, call light in reach and nonslip socks applied. IV sites are both dry and patent with no S/S of infection.
[2019-09-25 08:00] VITALS: BP 127/58
[2019-09-25 08:17] LABS: ALANINE AMINOTRANSFERASE 17 U/L (12-78); ALBUMIN 1.9 G/DL (3.4-5.0); ALBUMIN/GLOBULIN RATIO 0.4 (1.0-2.7); ALKALINE PHOSPHATASE 36 U/L (46-116); ANION GAP 15 mmol/L (5-15); ASPARTATE AMINO TRANSFERASE 37 U/L (15-37); BILIRUBIN,TOTAL 1.1 MG/DL (0.2-1.0); BLOOD UREA NITROGEN 22 mg/dL (7-18); CALCIUM 8.8 MG/DL (8.5-10.1); CARBON DIOXIDE 19 MMOL/L (21-32); CHLORIDE 111 MMOL/L (98-107); CHOLESTEROL 90 MG/DL (< 200); CREATININE 0.8 MG/DL (0.55-1.30); FERRITIN > 2000 NG/ML (8-388); GAMMA GLUTAMYL TRANSPEPTIDASE 16 U/L (5-85); HDL CHOLESTEROL 30 MG/DL (40-60); LACTATE DEHYDROGENASE 388 U/L (81-234); PHOSPHORUS 2.9 MG/DL (2.5-4.9); POTASSIUM 3.6 MMOL/L (3.5-5.1); SODIUM 145 MMOL/L (136-145); TRIGLYCERIDES 80 MG/DL (30-150)
--- NOTE | 2019-09-25 08:18 | Pulmonology Progress Note ---
Subjective Interval Events: Comfirmed COVID 19 pcr Constitutional: Reports: no symptoms HEENT: Repors: no symptoms Respiratory: Reports: dry cough, shortness of breath Cardiovascular: Reports: no symptoms Gastrointestinal/Abdominal: Reports: no symptoms Genitourinary: Reports: no symptoms Allergies: Coded Allergies: No Known Allergies (Unverified , 03/08/12) Objective Last 24 Hour Vital Signs Date Time Temp Pulse Resp B/P (MAP) Pulse Ox O2 Delivery O2 Flow Rate FiO2 09/25/19 04:00 104 09/25/19 04:00 99.1 110 21 112/67 (82) 92 09/25/19 00:00 99 09/25/19 00:00 99.5 99 22 115/59 (77) 92 09/24/19 21:00 Non-Rebreather 15.0 09/24/19 20:57 100.4 09/24/19 20:00 100.9 120 21 122/66 (84) 90 09/24/19 20:00 120 09/24/19 16:00 97.7 114 22 127/60 (82) 92 09/24/19 16:00 117 09/24/19 12:00 98.1 120 22 120/64 (82) 93 09/24/19 12:00 108 09/24/19 10:08 Non-Rebreather Intake and Output 09/24/19 09/25/19 19:00 07:00 Intake Total 50 ml 400 ml Output Total 100 ml Balance 50 ml 300 ml IV Total 50 ml 400 ml Output Urine Total 100 ml # Bowel Movements 1 1 General Appearance: no acute distress HEENT: normocephalic Respiratory: chest wall non-tender, decreased breath sounds Cardiovascular: normal peripheral pulses Abdomen: normal bowel sounds Microbiology Date/Time Source Procedure Growth Status 09/23/19 20:00 Blood Blood Culture - Preliminary Resulted 09/23/19 19:45 Blood Blood Culture - Preliminary Resulted 09/23/19 20:00 Nasopharynx Coronavirus COVID-19 PCR ([facility]) - Final Complete 09/23/19 20:00 Urine,Clean Catch Urine Culture - Preliminary Gram Negative Drake Resulted Laboratory Tests 09/25/19 07:00: White Blood Count 5.9, Red Blood Count 3.81L, Hemoglobin 13.3, Hematocrit 39.2, Mean Corpuscular Volume 103H, Mean Corpuscular Hemoglobin 34.8H, Mean Corpuscular Hemoglobin Concent 33.8, Red Cell Distribution Width 11.3L, Platelet Count 139L, Mean Platelet Volume 7.1, Neutrophils (%) (Auto) , Lymphocytes (%) (Auto) , Monocytes (%) (Auto) , Eosinophils (%) (Auto) , Basophils (%) (Auto) , Neutrophils % (Manual) [Pending], Lymphocytes % (Manual) [Pending], Platelet Estimate [Pending], Platelet Morphology [Pending], Sodium Level [Pending], Potassium Level [Pending], Chloride Level [Pending], Carbon Dioxide Level [Pending], Blood Urea Nitrogen [Pending], Creatinine [Pending], Estimat Glomerular Filtration Rate [Pending], Glucose Level [Pending], Calcium Level [Pending], Phosphorus Level [Pending], Magnesium Level [Pending], Iron Level [Pending], Unsaturated Iron Binding [Pending], Ferritin [Pending], Total Bilirubin [Pending], Gamma Glutamyl Transpeptidase [Pending], Aspartate Amino Transf (AST/SGOT) [Pending], Alanine Aminotransferase (ALT/SGPT) [Pending], Alkaline Phosphatase [Pending], Lactate Dehydrogenase [Pending], Troponin I [ Pending], C-Reactive Protein, Quantitative [Pending], Pro-B-Type Natriuretic Peptide [Pending], Total Protein [Pending], Albumin [Pending], Globulin [Pending ], Triglycerides Level [Pending], Cholesterol Level [Pending], LDL Cholesterol [ Pending], HDL Cholesterol [Pending], Cholesterol/HDL Ratio [Pending], Vitamin B12 Level [Pending], Folate [Pending], Thyroid Stimulating Hormone (TSH) [ Pending] Current Medications Medications (Trade) Dose Ordered Sig/Lisa Route PRN Reason Start Time Stop Time Status Last Admin Dose Admin Acetaminophen (Tylenol) 650 mg Q6H PRN ORAL Temp >100.5 09/24/19 01:30 10/24/19 01:29 Acetaminophen (Tylenol) 650 mg Q6H PRN RECTAL Temp >100.5 09/24/19 20:30 10/24/19 20:29 09/24/19 20:27 Donepezil HCl (Aricept) 10 mg DAILY ORAL 09/24/19 09:00 8/17/20 08:59 Famotidine (Pepcid I.v.) 20 mg Q12HR IVP 09/24/19 12:00 10/24/19 11:59 09/24/19 20:17 Heparin Sodium (Porcine) (Heparin 5000 units/ml) 5,000 units EVERY 12 HOURS SUBQ 09/24/19 09:00 11/08/19 08:59 09/24/19 20:18 Megestrol Acetate (Megace) 40 mg BID ORAL 09/24/19 09:00 09/29/19 08:59 Memantine (Namenda) 10 mg BID ORAL 09/24/19 09:00 10/24/19 08:59 Piperacillin Sod/ Tazobactam Sod 3.375 gm/Sodium Chloride 110 ml @ 27.5 mls/hr Q8H IVPB 09/24/19 12:00 10/01/19 11:59 09/25/19 04:06 Polyethylene Glycol (Miralax) 17 gm HSPRN PRN ORAL Constipation 09/24/19 07:30 10/24/19 07:29 Sodium 1,000 ml @ 50 mls/hr Q20H IV 09/24/19 13:00 10/24/19 12:59 09/24/19 12:53 Zolpidem Tartrate (Ambien) 5 mg HSPRN PRN ORAL Agitation 09/24/19 07:30 10/01/19 07:29 Assessment/Plan Assessment/Plan IMPRESSION: 1. UTI. 2. Confirmed COVID-19 pneumonia. 3. Dementia. 4. COPD. 5. Encephalopathy. DISCUSSION: DNI status to maintain. The patient needs broad-spectrum antibiotics, IV fluids , replacement of potassium. She may be a candidate for remdesivir and steroids. Will defer to ID. I will follow client development manager and order oxygen and pulmonary hygiene. Currently on non-rebreather mask. Loyda Atwood Omar Syed MD Sep 25, 2019 08:18
[2019-09-25 08:20] LABS: BILIRUBIN,DIRECT 0.9 MG/DL (0.0-0.3)
[2019-09-25 08:35] LABS: IRON 12 ug/dL (50-175)
[2019-09-25] MEDS: Heparin 5000 units/ml inj SUBQ SCH ×2 (08:42→20:39)
[2019-09-25] MEDS: Donepezil 10mg tab ORAL SCH (09:00)
[2019-09-25] MEDS: Memantine 10mg tab ORAL SCH ×2 (09:00→17:59)
[2019-09-25 09:22] LABS: % IRON SATURATION 17 % (15-50); TOTAL IRON BINDING CAPACITY 72 ug/dL (250-450)
[2019-09-25] MEDS: 1/2NS w/KCl 20mEq 1000ml 1,000 ML IV SCH (09:36)
--- NOTE | 2019-09-25 09:40 | General Progress Note ---
Assessment/Plan Problem List: (1) UTI (urinary tract infection) ICD Codes: N39.0 - Urinary tract infection, site not specified SNOMED: 54223303 (2) Decubitus skin ulcer ICD Codes: L89.90 - Pressure ulcer of unspecified site, unspecified stage SNOMED: 831943070 (3) Suspected COVID-19 virus infection ICD Codes: Z20.828 - Contact with and (suspected) exposure to other viral communicable diseases SNOMED: 585110600 (4) Dementia ICD Codes: F03.90 - Unspecified dementia without behavioral disturbance SNOMED: 08593524 (5) Protein-calorie malnutrition, severe ICD Codes: E43 - Unspecified severe protein-calorie malnutrition SNOMED: 178353732 (6) Alzheimer's dementia ICD Codes: G30.9 - Alzheimer's disease, unspecified; F02.80 - Dementia in other diseases classified elsewhere without behavioral disturbance SNOMED: 63653598 Status: unchanged Assessment/Plan: pt diet o2 pulm tx abx cbc bmp am Subjective Constitutional: Reports: weakness Allergies: Coded Allergies: No Known Allergies (Unverified , 03/08/12) All Systems: reviewed and negative except above Subjective o2 mask sleepy Objective Last 24 Hour Vital Signs Date Time Temp Pulse Resp B/P (MAP) Pulse Ox O2 Delivery O2 Flow Rate FiO2 09/25/19 09:00 Non-Rebreather 15.0 09/25/19 08:00 97.5 111 22 127/58 (81) 93 09/25/19 08:00 118 09/25/19 04:00 104 09/25/19 04:00 99.1 110 21 112/67 (82) 92 09/25/19 00:00 99 09/25/19 00:00 99.5 99 22 115/59 (77) 92 09/24/19 21:00 Non-Rebreather 15.0 09/24/19 20:57 100.4 09/24/19 20:00 100.9 120 21 122/66 (84) 90 09/24/19 20:00 120 09/24/19 16:00 97.7 114 22 127/60 (82) 92 09/24/19 16:00 117 09/24/19 12:00 98.1 120 22 120/64 (82) 93 09/24/19 12:00 108 09/24/19 10:08 Non-Rebreather Intake and Output 09/24/19 09/25/19 19:00 07:00 Intake Total 50 ml 400 ml Output Total 100 ml Balance 50 ml 300 ml IV Total 50 ml 400 ml Output Urine Total 100 ml # Bowel Movements 1 1 Laboratory Tests 09/25/19 07:00: White Blood Count 5.9, Red Blood Count 3.81L, Hemoglobin 13.3, Hematocrit 39.2, Mean Corpuscular Volume 103H, Mean Corpuscular Hemoglobin 34.8H, Mean Corpuscular Hemoglobin Concent 33.8, Red Cell Distribution Width 11.3L, Platelet Count 139L, Mean Platelet Volume 7.1, Neutrophils (%) (Auto) , Lymphocytes (%) (Auto) , Monocytes (%) (Auto) , Eosinophils (%) (Auto) , Basophils (%) (Auto) , Neutrophils % (Manual) [Pending], Lymphocytes % (Manual) [Pending], Platelet Estimate [Pending], Platelet Morphology [Pending], Sodium Level 145, Potassium Level 3.6, Chloride Level 111H, Carbon Dioxide Level 19L, Anion Gap 15, Blood Urea Nitrogen 22H, Creatinine 0.8, Estimat Glomerular Filtration Rate > 60, Glucose Level 166#H, Calcium Level 8.8, Phosphorus Level 2.9, Magnesium Level 1.5L, Iron Level 12L, Total Iron Binding Capacity 72L, Percent Iron Saturation 17, Unsaturated Iron Binding 60L, Ferritin > 2000H, Total Bilirubin 1.1H, Direct Bilirubin 0.9H, Gamma Glutamyl Transpeptidase 16, Aspartate Amino Transf (AST/SGOT) 37, Alanine Aminotransferase (ALT/SGPT) 17, Alkaline Phosphatase 36L, Lactate Dehydrogenase 388H, Troponin I 0.030, C- Reactive Protein, Quantitative 43.1H, Pro-B-Type Natriuretic Peptide 4175H, Total Protein 6.5, Albumin 1.9L, Globulin 4.6, Albumin/Globulin Ratio 0.4L, Triglycerides Level 80, Cholesterol Level 90, LDL Cholesterol 43, HDL Cholesterol 30L, Cholesterol/HDL Ratio 3.0L, Vitamin B12 Level 1679H, Folate 31.5, Thyroid Stimulating Hormone (TSH) 0.347L Height (Feet): 4 Height (Inches): 9.00 Weight (Pounds): 110 General Appearance: lethargic EENT: normal ENT inspection Neck: normal alignment Cardiovascular: normal rate, regular rhythm Respiratory/Chest: no respiratory distress, no accessory muscle use Extremities: normal inspection Skin: normal pigmentation Heber Coello DO Sep 25, 2019 09:40
--- NOTE | 2019-09-25 10:08 | Nephrology Progress Note ---
Assessment/Plan Problem List: (1) Electrolyte imbalance (2) Suspected COVID-19 virus infection (3) Alzheimer's dementia (4) At high risk for aspiration (5) Hypoalbuminemia (6) DNR no code (do not resuscitate) Assessment Hypokalemia Hypoalbuminemia Suspected cold with 19 virus infection UTI High aspiration risk Alzheimer's dementia DNR Plan Magnesium sulfate IV ordered IV hydration with potassium N.p.o. except medications, patient is aspiration risk Speech therapy evaluation Antibiotics Monitor electrolytes Per orders Subjective ROS Limited/Unobtainable: Yes Objective Objective Last 24 Hour Vital Signs Date Time Temp Pulse Resp B/P (MAP) Pulse Ox O2 Delivery O2 Flow Rate FiO2 09/25/19 09:00 Non-Rebreather 15.0 09/25/19 08:00 97.5 111 22 127/58 (81) 93 09/25/19 08:00 118 09/25/19 04:00 104 09/25/19 04:00 99.1 110 21 112/67 (82) 92 09/25/19 00:00 99 09/25/19 00:00 99.5 99 22 115/59 (77) 92 09/24/19 21:00 Non-Rebreather 15.0 09/24/19 20:57 100.4 09/24/19 20:00 100.9 120 21 122/66 (84) 90 09/24/19 20:00 120 09/24/19 16:00 97.7 114 22 127/60 (82) 92 09/24/19 16:00 117 09/24/19 12:00 98.1 120 22 120/64 (82) 93 09/24/19 12:00 108 09/24/19 10:08 Non-Rebreather Intake and Output 09/24/19 09/25/19 19:00 07:00 Intake Total 50 ml 400 ml Output Total 100 ml Balance 50 ml 300 ml IV Total 50 ml 400 ml Output Urine Total 100 ml # Bowel Movements 1 1 Current Medications Medications (Trade) Dose Ordered Sig/Lisa Route PRN Reason Start Time Stop Time Status Last Admin Dose Admin Acetaminophen (Tylenol) 650 mg Q6H PRN ORAL Temp >100.5 09/24/19 01:30 10/24/19 01:29 Acetaminophen (Tylenol) 650 mg Q6H PRN RECTAL Temp >100.5 09/24/19 20:30 10/24/19 20:29 09/24/19 20:27 Donepezil HCl (Aricept) 10 mg DAILY ORAL 09/24/19 09:00 10/24/19 08:59 Famotidine (Pepcid I.v.) 20 mg Q12HR IVP 09/24/19 12:00 10/24/19 11:59 09/25/19 08:39 Heparin Sodium (Porcine) (Heparin 5000 units/ml) 5,000 units EVERY 12 HOURS SUBQ 09/24/19 09:00 11/08/19 08:59 09/25/19 08:42 Magnesium Sulfate 100 ml @ 100 mls/hr Q1H IVPB 09/25/19 09:30 09/25/19 13:29 09/25/19 09:37 Megestrol Acetate (Megace) 40 mg BID ORAL 09/24/19 09:00 09/29/19 08:59 Memantine (Namenda) 10 mg BID ORAL 09/24/19 09:00 10/24/19 08:59 Piperacillin Sod/ Tazobactam Sod 3.375 gm/Sodium Chloride 110 ml @ 27.5 mls/hr Q8H IVPB 09/24/19 12:00 10/01/19 11:59 09/25/19 04:06 Polyethylene Glycol (Miralax) 17 gm HSPRN PRN ORAL Constipation 09/24/19 07:30 10/24/19 07:29 Sodium 1,000 ml @ 50 mls/hr Q20H IV 09/24/19 13:00 10/24/19 12:59 09/25/19 09:36 Zolpidem Tartrate (Ambien) 5 mg HSPRN PRN ORAL Agitation 09/24/19 07:30 10/01/19 07:29 Laboratory Tests 09/25/19 07:00: White Blood Count 5.9, Red Blood Count 3.81L, Hemoglobin 13.3, Hematocrit 39.2, Mean Corpuscular Volume 103H, Mean Corpuscular Hemoglobin 34.8H, Mean Corpuscular Hemoglobin Concent 33.8, Red Cell Distribution Width 11.3L, Platelet Count 139L, Mean Platelet Volume 7.1, Neutrophils (%) (Auto) , Lymphocytes (%) (Auto) , Monocytes (%) (Auto) , Eosinophils (%) (Auto) , Basophils (%) (Auto) , Neutrophils % (Manual) [Pending], Lymphocytes % (Manual) [Pending], Platelet Estimate [Pending], Platelet Morphology [Pending], Sodium Level 145, Potassium Level 3.6, Chloride Level 111H, Carbon Dioxide Level 19L, Anion Gap 15, Blood Urea Nitrogen 22H, Creatinine 0.8, Estimat Glomerular Filtration Rate > 60, Glucose Level 166#H, Calcium Level 8.8, Phosphorus Level 2.9, Magnesium Level 1.5L, Iron Level 12L, Total Iron Binding Capacity 72L, Percent Iron Saturation 17, Unsaturated Iron Binding 60L, Ferritin > 2000H, Total Bilirubin 1.1H, Direct Bilirubin 0.9H, Gamma Glutamyl Transpeptidase 16, Aspartate Amino Transf (AST/SGOT) 37, Alanine Aminotransferase (ALT/SGPT) 17, Alkaline Phosphatase 36L, Lactate Dehydrogenase 388H, Troponin I 0.030, C- Reactive Protein, Quantitative 43.1H, Pro-B-Type Natriuretic Peptide 4175H, Total Protein 6.5, Albumin 1.9L, Globulin 4.6, Albumin/Globulin Ratio 0.4L, Triglycerides Level 80, Cholesterol Level 90, LDL Cholesterol 43, HDL Cholesterol 30L, Cholesterol/HDL Ratio 3.0L, Vitamin B12 Level 1679H, Folate 31.5, Thyroid Stimulating Hormone (TSH) 0.347L Height (Feet): 4 Height (Inches): 9.00 Weight (Pounds): 110 General Appearance: lethargic EENT: other - On nonrebreather mask Cardiovascular: tachycardia Respiratory/Chest: decreased breath sounds Abdomen: distended Julio Mclean MD Sep 25, 2019 10:08
--- NOTE | 2019-09-25 11:59 | Infectious Diseases Prog Note ---
Assessment/Plan Assessment/Plan A: 1. Gram-negative urinary tract infection. 2. COVID-19 disease 3. COPD. 4. Hypertension. 5. Dementia. 6. Sepsis 7. Bacteremia 8. DNR status PLAN: 1. Continue Zosyn. 2. Add IV Vancomycin 3. Continue isolation. 4. We will follow up cultures and adjust antibiotics accordingly. Subjective ROS Limited/Unobtainable: Yes Constitutional: Reports: fever, other - last night Allergies: Coded Allergies: No Known Allergies (Unverified , 03/08/12) Objective Last 24 Hour Vital Signs Date Time Temp Pulse Resp B/P (MAP) Pulse Ox O2 Delivery O2 Flow Rate FiO2 09/25/19 09:00 Non-Rebreather 15.0 09/25/19 08:00 97.5 111 22 127/58 (81) 93 09/25/19 08:00 118 09/25/19 04:00 104 09/25/19 04:00 99.1 110 21 112/67 (82) 92 09/25/19 00:00 99 09/25/19 00:00 99.5 99 22 115/59 (77) 92 09/24/19 21:00 Non-Rebreather 15.0 09/24/19 20:57 100.4 09/24/19 20:00 100.9 120 21 122/66 (84) 90 09/24/19 20:00 120 09/24/19 16:00 97.7 114 22 127/60 (82) 92 09/24/19 16:00 117 09/24/19 12:00 98.1 120 22 120/64 (82) 93 09/24/19 12:00 108 Height (Feet): 4 Height (Inches): 9.00 Weight (Pounds): 110 HEENT: mucous membranes moist Respiratory/Chest: other - on oxygen by rebreathing mask Cardiovascular: tachycardia Abdomen: soft, non tender Neurologic/Psychiatric: unresponsiveness Microbiology Date/Time Source Procedure Growth Status 09/23/19 20:00 Blood Blood Culture - Preliminary Resulted 09/23/19 19:45 Blood Blood Culture - Preliminary Resulted 09/23/19 20:00 Nasopharynx Coronavirus COVID-19 PCR ([facility]) - Final Complete 09/23/19 20:00 Urine,Clean Catch Urine Culture - Preliminary Gram Negative Drake Resulted Laboratory Tests Test 09/25/19 07:00 White Blood Count 5.9 K/UL (4.8-10.8) Red Blood Count 3.81 M/UL (4.20-5.40) L Hemoglobin 13.3 G/DL (12.0-16.0) Hematocrit 39.2 % (37.0-47.0) Mean Corpuscular Volume 103 FL (80-99) H Mean Corpuscular Hemoglobin 34.8 PG (27.0-31.0) H Mean Corpuscular Hemoglobin Concent 33.8 G/DL (32.0-36.0) Red Cell Distribution Width 11.3 % (11.6-14.8) L Platelet Count 139 K/UL (150-450) L Mean Platelet Volume 7.1 FL (6.5-10.1) Neutrophils (%) (Auto) % (45.0-75.0) Lymphocytes (%) (Auto) % (20.0-45.0) Monocytes (%) (Auto) % (1.0-10.0) Eosinophils (%) (Auto) % (0.0-3.0) Basophils (%) (Auto) % (0.0-2.0) Differential Total Cells Counted 100 Neutrophils % (Manual) 89 % (45-75) H Lymphocytes % (Manual) 9 % (20-45) L Monocytes % (Manual) 2 % (1-10) Eosinophils % (Manual) 0 % (0-3) Basophils % (Manual) 0 % (0-2) Band Neutrophils 0 % (0-8) Platelet Estimate Decreased L Platelet Morphology Normal Anisocytosis 1+ Macrocytosis 1+ Sodium Level 145 MMOL/L (136-145) Potassium Level 3.6 MMOL/L (3.5-5.1) Chloride Level 111 MMOL/L (98-107) H Carbon Dioxide Level 19 MMOL/L (21-32) L Anion Gap 15 mmol/L (5-15) Blood Urea Nitrogen 22 mg/dL (7-18) H Creatinine 0.8 MG/DL (0.55-1.30) Estimat Glomerular Filtration Rate > 60 mL/min (>60) Glucose Level 166 MG/DL (74-106) #H Calcium Level 8.8 MG/DL (8.5-10.1) Phosphorus Level 2.9 MG/DL (2.5-4.9) Magnesium Level 1.5 MG/DL (1.8-2.4) L Iron Level 12 ug/dL (50-175) L Total Iron Binding Capacity 72 ug/dL (250-450) L Percent Iron Saturation 17 % (15-50) Unsaturated Iron Binding 60 ug/dL (112-346) L Ferritin > 2000 NG/ML (8-388) H Total Bilirubin 1.1 MG/DL (0.2-1.0) H Direct Bilirubin 0.9 MG/DL (0.0-0.3) H Gamma Glutamyl Transpeptidase 16 U/L (5-85) Aspartate Amino Transf (AST/SGOT) 37 U/L (15-37) Alanine Aminotransferase (ALT/SGPT) 17 U/L (12-78) Alkaline Phosphatase 36 U/L (46-116) L Lactate Dehydrogenase 388 U/L (81-234) H Troponin I 0.030 ng/mL (0.000-0.056) C-Reactive Protein, Quantitative 43.1 mg/dL (0.00-0.90) H Pro-B-Type Natriuretic Peptide 4175 pg/mL (0-125) H Total Protein 6.5 G/DL (6.4-8.2) Albumin 1.9 G/DL (3.4-5.0) L Globulin 4.6 g/dL Albumin/Globulin Ratio 0.4 (1.0-2.7) L Triglycerides Level 80 MG/DL (30-150) Cholesterol Level 90 MG/DL (< 200) LDL Cholesterol 43 mg/dL (<100) HDL Cholesterol 30 MG/DL (40-60) L Cholesterol/HDL Ratio 3.0 (3.3-4.4) L Vitamin B12 Level 1679 PG/ML (193-986) H Folate 31.5 NG/ML (8.6-58.9) Thyroid Stimulating Hormone (TSH) 0.347 uiU/mL (0.358-3.740) Current Medications Medications (Trade) Dose Ordered Sig/Lisa Route PRN Reason Start Time Stop Time Status Last Admin Dose Admin Acetaminophen (Tylenol) 650 mg Q6H PRN ORAL Temp >100.5 09/24/19 01:30 10/24/19 01:29 Acetaminophen (Tylenol) 650 mg Q6H PRN RECTAL Temp >100.5 09/24/19 20:30 10/24/19 20:29 09/24/19 20:27 Donepezil HCl (Aricept) 10 mg DAILY ORAL 09/24/19 09:00 10/24/19 08:59 Famotidine (Pepcid I.v.) 20 mg Q12HR IVP 09/24/19 12:00 10/24/19 11:59 09/25/19 08:39 Heparin Sodium (Porcine) (Heparin 5000 units/ml) 5,000 units EVERY 12 HOURS SUBQ 09/24/19 09:00 11/08/19 08:59 09/25/19 08:42 Magnesium Sulfate 100 ml @ 100 mls/hr Q1H IVPB 09/25/19 09:30 09/25/19 13:29 09/25/19 11:25 Megestrol Acetate (Megace) 40 mg BID ORAL 09/24/19 09:00 09/29/19 08:59 Memantine (Namenda) 10 mg BID ORAL 09/24/19 09:00 10/24/19 08:59 Piperacillin Sod/ Tazobactam Sod 3.375 gm/Sodium Chloride 110 ml @ 27.5 mls/hr Q8H IVPB 09/24/19 12:00 10/01/19 11:59 09/25/19 04:06 Polyethylene Glycol (Miralax) 17 gm HSPRN PRN ORAL Constipation 09/24/19 07:30 10/24/19 07:29 Sodium 1,000 ml @ 50 mls/hr Q20H IV 09/24/19 13:00 10/24/19 12:59 09/25/19 09:36 Zolpidem Tartrate (Ambien) 5 mg HSPRN PRN ORAL Agitation 09/24/19 07:30 10/01/19 07:29 Romel Alvarado MD Sep 25, 2019 11:59
[2019-09-25 12:00] VITALS: BP 151/76
--- NOTE | 2019-09-25 12:23 | NUR ---
RD ASSESSMENT & RECOMMENDATIONS SEE CARE ACTIVITY FOR COMPLETE ASSESSMENT DAILY ESTIMATED NEEDS: Needs based on Pulmonary, wounds 50kg (EMR wt) 25-35 kcals/kg 0945-0782 total kcals 1.25-2 g protein/kg 63-100 g total protein 25-30 mL/kcal mL/kg 1271-6337 total fluid mLs NUTRITION DIAGNOSIS: Increased kcal,protein, and MVI needs r/t wound healing as evidenced by multiple areas of skin breakdown, refer to WC eval. CURRENT DIET:NPO PO DIET RECOMMENDATIONS: Liberalized, regular diet as medically able (texture per [employer] OPERATOR) ADDITIONAL RECOMMENDATIONS: Ht 5'0", wt 30.5kg (67#) on last adm fall 2018, plz weigh on calibrated bed [employer] M[employer] OPERATOR eval when appropriate for diet Wound care: Kyler BID Glucerna TID with meals NISS with meals for glycemic control Monitor lytes + hydration status daily, replete as needed (low mg) .
[2019-09-25] MEDS ORDERED: Vancomycin 1.25gm/NS Premix IVPB ONE (13:00)
[2019-09-25] MEDS ORDERED: NS 500ML ONE (13:26)
[2019-09-25] MEDS ORDERED: Tubing IV Secondary IV ONE ×2 (13:26→14:53)
--- NOTE | 2019-09-25 13:44 | Surgery Progress Note ---
Surgery Progress Note Subjective Additional Comments no acute events comfortable stable labs noted exam unchanged Objective Last 24 Hour Vital Signs Date Time Temp Pulse Resp B/P (MAP) Pulse Ox O2 Delivery O2 Flow Rate FiO2 09/25/19 12:00 115 09/25/19 09:00 Non-Rebreather 15.0 09/25/19 08:00 97.5 111 22 127/58 (81) 93 09/25/19 08:00 118 09/25/19 04:00 104 09/25/19 04:00 99.1 110 21 112/67 (82) 92 09/25/19 00:00 99 09/25/19 00:00 99.5 99 22 115/59 (77) 92 09/24/19 21:00 Non-Rebreather 15.0 09/24/19 20:57 100.4 09/24/19 20:00 100.9 120 21 122/66 (84) 90 09/24/19 20:00 120 09/24/19 16:00 97.7 114 22 127/60 (82) 92 09/24/19 16:00 117 I&O Intake and Output 09/24/19 09/25/19 19:00 07:00 Intake Total 50 ml 400 ml Output Total 100 ml Balance 50 ml 300 ml IV Total 50 ml 400 ml Output Urine Total 100 ml # Bowel Movements 1 1 Dressing: other Wound: other Drains: other Cardiovascular: RSR, other Respiratory: decreased breath sounds Abdomen: soft, non-tender, present bowel sounds Extremities: no cyanosis Laboratory Tests Test 09/25/19 07:00 White Blood Count 5.9 K/UL (4.8-10.8) Red Blood Count 3.81 M/UL (4.20-5.40) L Hemoglobin 13.3 G/DL (12.0-16.0) Hematocrit 39.2 % (37.0-47.0) Mean Corpuscular Volume 103 FL (80-99) H Mean Corpuscular Hemoglobin 34.8 PG (27.0-31.0) H Mean Corpuscular Hemoglobin Concent 33.8 G/DL (32.0-36.0) Red Cell Distribution Width 11.3 % (11.6-14.8) L Platelet Count 139 K/UL (150-450) L Mean Platelet Volume 7.1 FL (6.5-10.1) Neutrophils (%) (Auto) % (45.0-75.0) Lymphocytes (%) (Auto) % (20.0-45.0) Monocytes (%) (Auto) % (1.0-10.0) Eosinophils (%) (Auto) % (0.0-3.0) Basophils (%) (Auto) % (0.0-2.0) Differential Total Cells Counted 100 Neutrophils % (Manual) 89 % (45-75) H Lymphocytes % (Manual) 9 % (20-45) L Monocytes % (Manual) 2 % (1-10) Eosinophils % (Manual) 0 % (0-3) Basophils % (Manual) 0 % (0-2) Band Neutrophils 0 % (0-8) Platelet Estimate Decreased L Platelet Morphology Normal Anisocytosis 1+ Macrocytosis 1+ Sodium Level 145 MMOL/L (136-145) Potassium Level 3.6 MMOL/L (3.5-5.1) Chloride Level 111 MMOL/L (98-107) H Carbon Dioxide Level 19 MMOL/L (21-32) L Anion Gap 15 mmol/L (5-15) Blood Urea Nitrogen 22 mg/dL (7-18) H Creatinine 0.8 MG/DL (0.55-1.30) Estimat Glomerular Filtration Rate > 60 mL/min (>60) Glucose Level 166 MG/DL (74-106) #H Calcium Level 8.8 MG/DL (8.5-10.1) Phosphorus Level 2.9 MG/DL (2.5-4.9) Magnesium Level 1.5 MG/DL (1.8-2.4) L Iron Level 12 ug/dL (50-175) L Total Iron Binding Capacity 72 ug/dL (250-450) L Percent Iron Saturation 17 % (15-50) Unsaturated Iron Binding 60 ug/dL (112-346) L Ferritin > 2000 NG/ML (8-388) H Total Bilirubin 1.1 MG/DL (0.2-1.0) H Direct Bilirubin 0.9 MG/DL (0.0-0.3) H Gamma Glutamyl Transpeptidase 16 U/L (5-85) Aspartate Amino Transf (AST/SGOT) 37 U/L (15-37) Alanine Aminotransferase (ALT/SGPT) 17 U/L (12-78) Alkaline Phosphatase 36 U/L (46-116) L Lactate Dehydrogenase 388 U/L (81-234) H Troponin I 0.030 ng/mL (0.000-0.056) C-Reactive Protein, Quantitative 43.1 mg/dL (0.00-0.90) H Pro-B-Type Natriuretic Peptide 4175 pg/mL (0-125) H Total Protein 6.5 G/DL (6.4-8.2) Albumin 1.9 G/DL (3.4-5.0) L Globulin 4.6 g/dL Albumin/Globulin Ratio 0.4 (1.0-2.7) L Triglycerides Level 80 MG/DL (30-150) Cholesterol Level 90 MG/DL (< 200) LDL Cholesterol 43 mg/dL (<100) HDL Cholesterol 30 MG/DL (40-60) L Cholesterol/HDL Ratio 3.0 (3.3-4.4) L Vitamin B12 Level 1679 PG/ML (193-986) H Folate 31.5 NG/ML (8.6-58.9) Thyroid Stimulating Hormone (TSH) 0.347 uiU/mL (0.358-3.740) Free Thyroxine 1.75 NG/DL (0.76-1.46) H Free Triiodothyronine 0.8 pg/mL (2.3-4.2) L Plan Problems: (1) UTI (urinary tract infection) (2) Decubitus skin ulcer Assessment & Plan: Pt presented on admission with multiple Pressure injuries, Hypertrophic Scar with resurfacing Pressure injury. Purple and indurated area at Sacrococcygeal area(L)2.2cm x (W)3.5cm with surrounding hypertrophy. (L)7cm x (W)9cm. L Heel is boggy with non-Blanching erythema. R Heel is Maroon and fluctuant. Pt has non-rebreather Mask and linear erythema with indentations noted to both cheeks. Skin barrier applied and soft padding placed between elastic and skin to minimize friction and pressure. Tx.Plan: Apply Moisture Barrier Paste to Sacrum. Cover with Optifoam drsg. Change every 3 days and prn. Apply Cavilon Skin Barrier to Malleoli and each heel. Cover each site with Optifoam drsg. Change every 7 days and prn. Apply Cavilon Skin Barrier to R and L Cheeks and both earlobes. Cover each cheek with Optifoam drsgs or Soft pads while pt is using oxygen mask. Reposition at least every 2hours or as tolerated. Off-load heels with Pillows APM/ZOHRA Mattress overlay. (3) GIB (gastrointestinal bleeding) (4) COPD exacerbation (5) At high risk for aspiration (6) Suspected COVID-19 virus infection (7) Dementia (8) Protein-calorie malnutrition, severe Assessment & Plan: DAILY ESTIMATED NEEDS: Needs based on Pulmonary, wounds 50kg (EMR wt) 25-35 kcals/kg 1468-1696 total kcals 1.25-2 g protein/kg 63-100 g total protein 25-30 mL/kcal mL/kg 9949-8138 total fluid mLs NUTRITION DIAGNOSIS: Increased kcal,protein, and MVI needs r/t wound healing as evidenced by multiple areas of skin breakdown, refer to WC eval. CURRENT DIET:NPO PO DIET RECOMMENDATIONS: Liberalized, regular diet as medically able (texture per POLICE CAPTAIN) ADDITIONAL RECOMMENDATIONS: Ht 5'0", wt 30.5kg (67#) on last adm fall 2018, plz weigh on calibrated bed POLICE CAPTAIN eval when appropriate for diet Wound care: Kyler BID Glucerna TID with meals NISS with meals for glycemic control Monitor lytes + hydration status daily, replete as needed (low mg) . (9) Advanced age (10) Alzheimer's dementia Raghav Moon Sep 25, 2019 13:44
--- NOTE | 2019-09-25 15:00 | NUR ---
NURSE NOTES:spoke with Addy Pepper; patient's son and explained that patient has not been able to eat since she got admitted. Patient failed the swallow test by nurse. Awaiting for speech therapist to come to evaluate. Son would like to change patient's POLST with tubefeeding. Will notify primary MD regarding patient's son wish.
--- NOTE | 2019-09-25 15:05 | NUR ---
NURSE NOTES: Patient's Oxygen Saturation has been decreased to 83% on Nonrebreather 15L. Left message to DR. Alcaraz to notify, awaiting for response.
--- NOTE | 2019-09-25 15:15 | NUR ---
NURSE NOTES: Patient's son made aware that he will come by tomorrow 09/26/19 to sign PHI to get a copy of patient's COVID result and to change patient's POLST status.
[2019-09-25 16:00] VITALS: BP 129/63
[2019-09-25] MEDS: NovoLOG Insulin Flexpen SUBQ SCH ×2 (16:30→21:00)
--- NOTE | 2019-09-25 16:35 | Cardiac Electrophysiology PN ---
Assessment/Plan Assessment/Plan 1. Sinus tachycardia, likely due to UTI, sepsis and dehydration. The patient's glucose is not controlled either. EF 45% The patient is DNR/DNI.On iv Abx 2. Covid Respiratory failure on 100% NRB Face Mask. Change to BIPAP. DNR/DNI 3. Severe hypokalemia 2.6. Replace intravenously. 3. Lactic acidosis. Patient was started on IV antibiotic for her sepsis. 4. Nonverbal. 5. DNR/DNI. 6. Advanced dementia. CRISTINA RN and Dr Alcaraz Subjective Subjective Saturation is 80% despite 100% NRB FM. RN at bedside. Isolation for Covid Objective Last 24 Hour Vital Signs Date Time Temp Pulse Resp B/P (MAP) Pulse Ox O2 Delivery O2 Flow Rate FiO2 09/25/19 12:00 115 09/25/19 12:00 97.5 116 26 151/76 (101) 90 09/25/19 09:00 Non-Rebreather 15.0 09/25/19 08:00 97.5 111 22 127/58 (81) 93 09/25/19 08:00 118 09/25/19 04:00 104 09/25/19 04:00 99.1 110 21 112/67 (82) 92 09/25/19 00:00 99 09/25/19 00:00 99.5 99 22 115/59 (77) 92 09/24/19 21:00 Non-Rebreather 15.0 09/24/19 20:57 100.4 09/24/19 20:00 100.9 120 21 122/66 (84) 90 09/24/19 20:00 120 Intake and Output 09/24/19 09/25/19 19:00 07:00 Intake Total 50 ml 400 ml Output Total 100 ml Balance 50 ml 300 ml IV Total 50 ml 400 ml Output Urine Total 100 ml # Bowel Movements 1 1 Laboratory Tests Test 09/25/19 07:00 White Blood Count 5.9 K/UL (4.8-10.8) Red Blood Count 3.81 M/UL (4.20-5.40) L Hemoglobin 13.3 G/DL (12.0-16.0) Hematocrit 39.2 % (37.0-47.0) Mean Corpuscular Volume 103 FL (80-99) H Mean Corpuscular Hemoglobin 34.8 PG (27.0-31.0) H Mean Corpuscular Hemoglobin Concent 33.8 G/DL (32.0-36.0) Red Cell Distribution Width 11.3 % (11.6-14.8) L Platelet Count 139 K/UL (150-450) L Mean Platelet Volume 7.1 FL (6.5-10.1) Neutrophils (%) (Auto) % (45.0-75.0) Lymphocytes (%) (Auto) % (20.0-45.0) Monocytes (%) (Auto) % (1.0-10.0) Eosinophils (%) (Auto) % (0.0-3.0) Basophils (%) (Auto) % (0.0-2.0) Differential Total Cells Counted 100 Neutrophils % (Manual) 89 % (45-75) H Lymphocytes % (Manual) 9 % (20-45) L Monocytes % (Manual) 2 % (1-10) Eosinophils % (Manual) 0 % (0-3) Basophils % (Manual) 0 % (0-2) Band Neutrophils 0 % (0-8) Platelet Estimate Decreased L Platelet Morphology Normal Anisocytosis 1+ Macrocytosis 1+ Sodium Level 145 MMOL/L (136-145) Potassium Level 3.6 MMOL/L (3.5-5.1) Chloride Level 111 MMOL/L (98-107) H Carbon Dioxide Level 19 MMOL/L (21-32) L Anion Gap 15 mmol/L (5-15) Blood Urea Nitrogen 22 mg/dL (7-18) H Creatinine 0.8 MG/DL (0.55-1.30) Estimat Glomerular Filtration Rate > 60 mL/min (>60) Glucose Level 166 MG/DL (74-106) #H Calcium Level 8.8 MG/DL (8.5-10.1) Phosphorus Level 2.9 MG/DL (2.5-4.9) Magnesium Level 1.5 MG/DL (1.8-2.4) L Iron Level 12 ug/dL (50-175) L Total Iron Binding Capacity 72 ug/dL (250-450) L Percent Iron Saturation 17 % (15-50) Unsaturated Iron Binding 60 ug/dL (112-346) L Ferritin > 2000 NG/ML (8-388) H Total Bilirubin 1.1 MG/DL (0.2-1.0) H Direct Bilirubin 0.9 MG/DL (0.0-0.3) H Gamma Glutamyl Transpeptidase 16 U/L (5-85) Aspartate Amino Transf (AST/SGOT) 37 U/L (15-37) Alanine Aminotransferase (ALT/SGPT) 17 U/L (12-78) Alkaline Phosphatase 36 U/L (46-116) L Lactate Dehydrogenase 388 U/L (81-234) H Troponin I 0.030 ng/mL (0.000-0.056) C-Reactive Protein, Quantitative 43.1 mg/dL (0.00-0.90) H Pro-B-Type Natriuretic Peptide 4175 pg/mL (0-125) H Total Protein 6.5 G/DL (6.4-8.2) Albumin 1.9 G/DL (3.4-5.0) L Globulin 4.6 g/dL Albumin/Globulin Ratio 0.4 (1.0-2.7) L Triglycerides Level 80 MG/DL (30-150) Cholesterol Level 90 MG/DL (< 200) LDL Cholesterol 43 mg/dL (<100) HDL Cholesterol 30 MG/DL (40-60) L Cholesterol/HDL Ratio 3.0 (3.3-4.4) L Vitamin B12 Level 1679 PG/ML (193-986) H Folate 31.5 NG/ML (8.6-58.9) Thyroid Stimulating Hormone (TSH) 0.347 uiU/mL (0.358-3.740) Free Thyroxine 1.75 NG/DL (0.76-1.46) H Free Triiodothyronine 0.8 pg/mL (2.3-4.2) L Microbiology Date/Time Source Procedure Growth Status 09/23/19 20:00 Blood Blood Culture - Preliminary Resulted 09/23/19 19:45 Blood Blood Culture - Preliminary Resulted 09/23/19 20:00 Nasopharynx Coronavirus COVID-19 PCR ([facility]) - Final Complete 09/23/19 20:00 Urine,Clean Catch Urine Culture - Preliminary Gram Negative Drake Resulted Objective HEAD AND NECK: Showed no JVD. LUNGS: Coarse rhonchi. CARDIOVASCULAR: Shows regular S1 and S2 with no gallop. ABDOMEN: Soft. EXTREMITIES: 1+ pitting edema. Parish Smith MD Sep 25, 2019 16:35
--- NOTE | 2019-09-25 17:00 | NUR ---
NURSE NOTES: Notified Dr Alcaraz again regarding patient has been tachypnic, agonal, and O2 desaturated at 83%. MD stated patient is DNR/DNI so no new orders.
--- NOTE | 2019-09-25 19:30 | NUR ---
NURSES NOTES: Received report from DANICA Key. Patient in bed, with eyes closed arousable to shaking, a/o x0. On O2 via non-rebreather 15L/min sating at 85% with tachypnea noted. Dr. Holden aware, per DR. Holden comfort measures only. Patient is DNR/DNI. IV 22G on right hand in place & patent running 1/2 NS 20 Meq KCL at 50cc/hr. Continue on hall monitor with sinus tachycardia DR. Smith aware. Patient is NPO. Bed in low position, bed alarm on and call light with in reach.
--- NOTE | 2019-09-25 19:30 | Consultation ---
DATE OF CONSULTATION: 09/25/2019 ENDOCRINOLOGY CONSULTATION CONSULTING PHYSICIAN: Soto Nieto MD. REFERRING PHYSICIAN: Heber Coello DO. REASON FOR CONSULTATION: Abnormal thyroid function tests and abnormal glucose. HISTORY OF PRESENT ILLNESS: The patient is an 88-year-old female with history of encephalopathy, COPD, bedbound, currently resides at a longterm facility, who presented with fever and hypoxemia. She was diagnosed with COVID and admitted to an isolation bed. Glucose has been erratic and also TSH has been abnormal therefore Endocrinology was consulted. PAST MEDICAL HISTORY: 1. COPD. 2. Encephalopathy. 3. Bedbound. PAST SURGICAL HISTORY: None. CURRENT MEDICATIONS: Reviewed and reconciled. FAMILY HISTORY: Noncontributory. SOCIAL HISTORY: long-term resident. No smoking, alcohol, or drug use. PHYSICAL EXAMINATION: Deferred due to COVID infection and isolation. LABORATORY DATA: Sodium 145, potassium 2.6, chloride 111, bicarb 19, BUN 22, glucose was 289 yesterday. DIAGNOSES: 1. COVID infection. 2. Labile glucose. 3. Abnormal thyroid function test. PLAN: 1. Blood glucose monitoring with formula at bedtime. 2. Check T4 and T3. 3. No need for thyroid medication for now. 4. I will follow the results and further advise. Thank you, Dr. Coello, for the courtesy of this consultation. Soto Nieto M.D. DR: DONIS JOB#: [id number] CC: CATHI
--- NOTE | 2019-09-25 19:46 | NUR ---
HAND-OFF: Report given to DANICA Collado. Patient's stable, plan of care endorsed.
[2019-09-25 20:00] VITALS: BP 122/65
[2019-09-26] VITALS: BP 116/71
--- NOTE | 2019-09-26 01:15 | NUR ---
NURSE NOTES: Pt continues to be tachypneic RR 25, sating at 85% via nonrebreather at 15L. Oral suction pt. Will continue with comfort care.
--- NOTE | 2019-09-26 03:15 | NUR ---
NURSE NOTES: Completed oral care on pt. Pt continues to be tachypneic. Will continue comfort care.
[2019-09-26 04:00] VITALS: BP 122/63
[2019-09-26] MEDS: Piperacillin/Tazobactam 3.375 GM in NS 110 ML IVPB SCH (04:15)
[2019-09-26] MEDS: 1/2NS w/KCl 20mEq 1000ml 1,000 ML IV SCH (04:50)
[2019-09-26] MEDS: NovoLOG Insulin Flexpen SUBQ SCH ×4 (06:20→21:00)
--- NOTE | 2019-09-26 06:30 | NUR ---
NURSE NOTES: Notified Dr. Smith that pt's HR has been in the 120s through out the night. Also, notified that pt's HR increased to 170s at approximately 0623 and decreased to the 130s. Awaiting call back.
[2019-09-26 06:44] LABS: HEMATOCRIT 44.7 % (37.0-47.0); HEMOGLOBIN 14.7 G/DL (12.0-16.0); MEAN CORPUSCULAR VOLUME 105 FL (80-99); PLATELET COUNT 115 K/UL (150-450); RED BLOOD COUNT 4.25 M/UL (4.20-5.40); RED CELL DISTRIBUTION WIDTH 11.6 % (11.6-14.8); WHITE BLOOD COUNT 9.1 K/UL (4.8-10.8)
--- NOTE | 2019-09-26 06:50 | General Progress Note ---
Assessment/Plan Problem List: (1) Abnormal thyroid blood test ICD Codes: R79.89 - Other specified abnormal findings of blood chemistry SNOMED: 295960105, 450290758973607 (2) Hyperglycemia ICD Codes: R73.9 - Hyperglycemia, unspecified SNOMED: 94739465 (3) Suspected COVID-19 virus infection ICD Codes: Z20.828 - Contact with and (suspected) exposure to other viral communicable diseases SNOMED: 500621788 (4) Alzheimer's dementia ICD Codes: G30.9 - Alzheimer's disease, unspecified; F02.80 - Dementia in other diseases classified elsewhere without behavioral disturbance SNOMED: 67186930 Status: unchanged Assessment/Plan: continue Novolog sliding scale ac / hs hypoglycemia protocol in order thyroid labs are mostly consistent with "sick euthyroid" no need for thyroid medication Subjective Allergies: Coded Allergies: No Known Allergies (Unverified , 03/08/12) Subjective events noted glucose values are stable free T4 mildly elevated and free T3 is low Item Value Date Time Bedside Blood Glucose 134 mg/dl H 09/26/19 0630 Bedside Blood Glucose 156 mg/dl H 09/25/19 2100 Bedside Blood Glucose 98 mg/dl 09/25/19 1630 Glucose Level 166 MG/DL H # 09/25/19 0700 Objective Last 24 Hour Vital Signs Date Time Temp Pulse Resp B/P (MAP) Pulse Ox O2 Delivery O2 Flow Rate FiO2 09/26/19 04:00 98.2 114 24 122/63 (82) 85 09/26/19 04:00 126 09/26/19 00:00 124 09/26/19 00:00 98.0 124 25 116/71 (86) 86 09/25/19 21:00 Non-Rebreather 15.0 09/25/19 20:00 116 09/25/19 20:00 98.8 116 25 122/65 (84) 88 09/25/19 16:00 97.5 119 26 129/63 (85) 90 09/25/19 16:00 119 09/25/19 12:00 115 09/25/19 12:00 97.5 116 26 151/76 (101) 90 09/25/19 09:00 Non-Rebreather 15.0 09/25/19 08:00 97.5 111 22 127/58 (81) 93 09/25/19 08:00 118 Intake and Output 09/25/19 09/26/19 19:00 07:00 Intake Total 150 ml Output Total 120 ml Balance 150 ml -120 ml IV Total 150 ml Output Urine Total 120 ml # Voids 2 # Bowel Movements 1 1 Laboratory Tests 09/25/19 07:00: White Blood Count 5.9, Red Blood Count 3.81L, Hemoglobin 13.3, Hematocrit 39.2, Mean Corpuscular Volume 103H, Mean Corpuscular Hemoglobin 34.8H, Mean Corpuscular Hemoglobin Concent 33.8, Red Cell Distribution Width 11.3L, Platelet Count 139L, Mean Platelet Volume 7.1, Neutrophils (%) (Auto) , Lymphocytes (%) (Auto) , Monocytes (%) (Auto) , Eosinophils (%) (Auto) , Basophils (%) (Auto) , Differential Total Cells Counted 100, Neutrophils % ( Manual) 89H, Lymphocytes % (Manual) 9L, Monocytes % (Manual) 2, Eosinophils % ( Manual) 0, Basophils % (Manual) 0, Band Neutrophils 0, Platelet Estimate DecreasedL, Platelet Morphology Normal, Anisocytosis 1+, Macrocytosis 1+, Sodium Level 145, Potassium Level 3.6, Chloride Level 111H, Carbon Dioxide Level 19L, Anion Gap 15, Blood Urea Nitrogen 22H, Creatinine 0.8, Estimat Glomerular Filtration Rate > 60, Glucose Level 166#H, Calcium Level 8.8, Phosphorus Level 2.9, Magnesium Level 1.5L, Iron Level 12L, Total Iron Binding Capacity 72L, Percent Iron Saturation 17, Unsaturated Iron Binding 60L, Ferritin > 2000H, Total Bilirubin 1.1H, Direct Bilirubin 0.9H, Gamma Glutamyl Transpeptidase 16, Aspartate Amino Transf (AST/SGOT) 37, Alanine Aminotransferase (ALT/SGPT) 17, Alkaline Phosphatase 36L, Lactate Dehydrogenase 388H, Troponin I 0.030, C-Reactive Protein, Quantitative 43.1H, Pro-B-Type Natriuretic Peptide 4175H, Total Protein 6.5, Albumin 1.9L, Globulin 4.6, Albumin/Globulin Ratio 0.4L, Triglycerides Level 80, Cholesterol Level 90, LDL Cholesterol 43, HDL Cholesterol 30L, Cholesterol/HDL Ratio 3.0L, Vitamin B12 Level 1679H, Folate 31.5, Thyroid Stimulating Hormone (TSH) 0.347L, Free Thyroxine 1.75H, Free Triiodothyronine 0.8L 09/25/19 21:25: POC Whole Blood Glucose 156H 09/26/19 05:50: White Blood Count [Pending], Red Blood Count [Pending], Hemoglobin [Pending], Hematocrit [Pending], Mean Corpuscular Volume [Pending], Mean Corpuscular Hemoglobin [Pending], Mean Corpuscular Hemoglobin Concent [Pending], Red Cell Distribution Width [Pending], Platelet Count [Pending], Mean Platelet Volume [ Pending], Neutrophils (%) (Auto) [Pending], Lymphocytes (%) (Auto) [Pending], Monocytes (%) (Auto) [Pending], Eosinophils (%) (Auto) [Pending], Basophils (%) (Auto) [Pending], Sodium Level [Pending], Potassium Level [Pending], Chloride Level [Pending], Carbon Dioxide Level [Pending], Blood Urea Nitrogen [Pending], Creatinine [Pending], Estimat Glomerular Filtration Rate [Pending], Glucose Level [Pending], Calcium Level [Pending], Total Bilirubin [Pending], Aspartate Amino Transf (AST/SGOT) [Pending], Alanine Aminotransferase (ALT/SGPT) [Pending] , Alkaline Phosphatase [Pending], Total Protein [Pending], Albumin [Pending], Globulin [Pending] Height (Feet): 4 Height (Inches): 9.00 Weight (Pounds): 110 Objective Current Medications Medications (Trade) Dose Ordered Sig/Lisa Route PRN Reason Start Time Stop Time Status Last Admin Dose Admin Acetaminophen (Tylenol) 650 mg Q6H PRN ORAL Temp >100.5 09/24/19 01:30 10/24/19 01:29 Acetaminophen (Tylenol) 650 mg Q6H PRN RECTAL Temp >100.5 09/24/19 20:30 10/24/19 20:29 09/24/19 20:27 Dextrose (Dextrose 50%) 25 ml Q30M PRN IV Hypoglycemia 09/25/19 12:30 12/24/19 12:29 Dextrose (Dextrose 50%) 50 ml Q30M PRN IV Hypoglycemia 09/25/19 12:30 12/24/19 12:29 Donepezil HCl (Aricept) 10 mg DAILY ORAL 09/24/19 09:00 10/24/19 08:59 Famotidine (Pepcid I.v.) 20 mg Q12HR IVP 09/24/19 12:00 10/24/19 11:59 09/25/19 20:38 Heparin Sodium (Porcine) (Heparin 5000 units/ml) 5,000 units EVERY 12 HOURS SUBQ 09/24/19 09:00 11/08/19 08:59 09/25/19 20:39 Insulin Aspart (NovoLOG) BEFORE MEALS AND HS SUBQ 09/25/19 16:30 12/24/19 16:29 Megestrol Acetate (Megace) 40 mg BID ORAL 09/24/19 09:00 09/29/19 08:59 Memantine (Namenda) 10 mg BID ORAL 09/24/19 09:00 10/24/19 08:59 Piperacillin Sod/ Tazobactam Sod 3.375 gm/Sodium Chloride 110 ml @ 27.5 mls/hr Q8H IVPB 09/24/19 12:00 10/01/19 11:59 09/26/19 04:15 Polyethylene Glycol (Miralax) 17 gm HSPRN PRN ORAL Constipation 09/24/19 07:30 10/24/19 07:29 Sodium 1,000 ml @ 50 mls/hr Q20H IV 09/24/19 13:00 10/24/19 12:59 09/26/19 04:50 Vancomycin HCl (Vanco pharmacy to dose) 1 ea DAILY PRN MISC Per rx protocol 09/25/19 12:00 10/25/19 11:59 Vancomycin HCl 750 mg/Sodium Chloride 275 ml @ 183.333 mls/hr Q24H IVPB 09/26/19 14:00 10/01/19 13:59 Zolpidem Tartrate (Ambien) 5 mg HSPRN PRN ORAL Agitation 09/24/19 07:30 10/01/19 07:29 Soto Nieto MD Sep 26, 2019 06:50
[2019-09-26 07:33] LABS: ALANINE AMINOTRANSFERASE 16 U/L (12-78); ALBUMIN 1.7 G/DL (3.4-5.0); ALBUMIN/GLOBULIN RATIO 0.3 (1.0-2.7); ALKALINE PHOSPHATASE 53 U/L (46-116); ANION GAP 18 mmol/L (5-15); ASPARTATE AMINO TRANSFERASE 45 U/L (15-37); BILIRUBIN,TOTAL 0.9 MG/DL (0.2-1.0); BLOOD UREA NITROGEN 23 mg/dL (7-18); CALCIUM 8.8 MG/DL (8.5-10.1); CARBON DIOXIDE 16 MMOL/L (21-32); CHLORIDE 112 MMOL/L (98-107); CREATININE 0.8 MG/DL (0.55-1.30); POTASSIUM 4.1 MMOL/L (3.5-5.1); SODIUM 146 MMOL/L (136-145)
--- NOTE | 2019-09-26 07:39 | NUR ---
HAND-OFF: Still awaiting for Dr. Smith's call back. Endorsed pt's condition and plan of care to DANICA Nguyễn. Pt is in unstable condition.
[2019-09-26 08:00] VITALS: BP 129/61
--- NOTE | 2019-09-26 08:12 | NUR ---
NURSE NOTES: Received report from DANICA Collado. Pt A/O xO. Currently on non rebreather mask at 15 , with tachypnea noted with oxygen level of 77%. IVF infusing on right hand. Patient is DNR/DNI. Pt is NPO. bed in low position, side rails up x3 and call light within reach. Will continue to monitor.
[2019-09-26] MEDS: Donepezil 10mg tab ORAL SCH (09:00)
[2019-09-26] MEDS: Heparin 5000 units/ml inj SUBQ SCH ×2 (09:00→21:00)
[2019-09-26] MEDS: Memantine 10mg tab ORAL SCH ×2 (09:00→17:12)
--- NOTE | 2019-09-26 09:07 | General Progress Note ---
Assessment/Plan Problem List: (1) UTI (urinary tract infection) ICD Codes: N39.0 - Urinary tract infection, site not specified SNOMED: 47391373 (2) Decubitus skin ulcer ICD Codes: L89.90 - Pressure ulcer of unspecified site, unspecified stage SNOMED: 098734106 (3) Suspected COVID-19 virus infection ICD Codes: Z20.828 - Contact with and (suspected) exposure to other viral communicable diseases SNOMED: 855653283 (4) Dementia ICD Codes: F03.90 - Unspecified dementia without behavioral disturbance SNOMED: 99224742 (5) Protein-calorie malnutrition, severe ICD Codes: E43 - Unspecified severe protein-calorie malnutrition SNOMED: 839311265 (6) Alzheimer's dementia ICD Codes: G30.9 - Alzheimer's disease, unspecified; F02.80 - Dementia in other diseases classified elsewhere without behavioral disturbance SNOMED: 81795983 Status: unchanged Assessment/Plan: pt diet o2 pulm tx abx cbc bmp am Subjective Constitutional: Reports: weakness Allergies: Coded Allergies: No Known Allergies (Unverified , 03/08/12) All Systems: reviewed and negative except above Subjective o2 mask sleepy Objective Last 24 Hour Vital Signs Date Time Temp Pulse Resp B/P (MAP) Pulse Ox O2 Delivery O2 Flow Rate FiO2 09/26/19 08:00 99.9 136 26 129/61 (83) 77 09/26/19 04:00 98.2 114 24 122/63 (82) 85 09/26/19 04:00 126 09/26/19 00:00 124 09/26/19 00:00 98.0 124 25 116/71 (86) 86 09/25/19 21:00 Non-Rebreather 15.0 09/25/19 20:00 116 09/25/19 20:00 98.8 116 25 122/65 (84) 88 09/25/19 16:00 97.5 119 26 129/63 (85) 90 09/25/19 16:00 119 09/25/19 12:00 115 09/25/19 12:00 97.5 116 26 151/76 (101) 90 Intake and Output 09/25/19 09/26/19 19:00 07:00 Intake Total 150 ml 550 ml Output Total 120 ml Balance 150 ml 430 ml IV Total 150 ml 550 ml Output Urine Total 120 ml # Voids 2 # Bowel Movements 1 1 Laboratory Tests 09/25/19 21:25: POC Whole Blood Glucose 156H 09/26/19 05:50: White Blood Count 9.1#, Red Blood Count 4.25, Hemoglobin 14.7, Hematocrit 44.7, Mean Corpuscular Volume 105H, Mean Corpuscular Hemoglobin 34.6H, Mean Corpuscular Hemoglobin Concent 32.9, Red Cell Distribution Width 11.6, Platelet Count 115L, Mean Platelet Volume 8.5, Neutrophils (%) (Auto) , Lymphocytes (%) ( Auto) , Monocytes (%) (Auto) , Eosinophils (%) (Auto) , Basophils (%) (Auto) , Neutrophils % (Manual) [Pending], Lymphocytes % (Manual) [Pending], Platelet Estimate [Pending], Platelet Morphology [Pending], Sodium Level 146H, Potassium Level 4.1, Chloride Level 112H, Carbon Dioxide Level 16L, Anion Gap 18H, Blood Urea Nitrogen 23H, Creatinine 0.8, Estimat Glomerular Filtration Rate > 60, Glucose Level 129H, Calcium Level 8.8, Total Bilirubin 0.9, Aspartate Amino Transf (AST/SGOT) 45H, Alanine Aminotransferase (ALT/SGPT) 16, Alkaline Phosphatase 53, Total Protein 6.6, Albumin 1.7L, Globulin 4.9, Albumin/Globulin Ratio 0.3L Height (Feet): 4 Height (Inches): 9.00 Weight (Pounds): 110 General Appearance: lethargic EENT: normal ENT inspection Neck: normal alignment Cardiovascular: normal rate, regular rhythm Respiratory/Chest: no respiratory distress, no accessory muscle use Extremities: normal inspection Skin: normal pigmentation Heber Coello DO Sep 26, 2019 09:07
[2019-09-26 10:03] LABS: PHOSPHORUS 3.8 MG/DL (2.5-4.9)
--- NOTE | 2019-09-26 10:05 | NUR ---
NURSE NOTES: Received a call from Micro lab with MRSA nares positive result. Dr. Kulkarni is currently in the nurses station and informed her about the result. No new orders.
--- NOTE | 2019-09-26 11:13 | Infectious Diseases Prog Note ---
Assessment/Plan Assessment/Plan antibiotics ; vancomycin iv, zosyn A 1. COVID 19 pneumonia on 15 liters O2, saturation 77 percent 2. staph sepsis 3. e.coli UTI 4. COPD 5. hypertension 6. dementia P 1. continue iv vancomycin 2. d/c zosyn 3. start meropenem 4. start ivermectin, dexamethasone unable to obtain consent 5. will follow up cultures 6. continue isolation Subjective ROS Limited/Unobtainable: Yes Allergies: Coded Allergies: No Known Allergies (Unverified , 03/08/12) Objective Last 24 Hour Vital Signs Date Time Temp Pulse Resp B/P (MAP) Pulse Ox O2 Delivery O2 Flow Rate FiO2 09/26/19 09:00 Non-Rebreather 15.0 09/26/19 08:00 99.9 136 26 129/61 (83) 77 09/26/19 08:00 139 09/26/19 04:00 98.2 114 24 122/63 (82) 85 09/26/19 04:00 126 09/26/19 00:00 124 09/26/19 00:00 98.0 124 25 116/71 (86) 86 09/25/19 21:00 Non-Rebreather 15.0 09/25/19 20:00 116 09/25/19 20:00 98.8 116 25 122/65 (84) 88 09/25/19 16:00 97.5 119 26 129/63 (85) 90 09/25/19 16:00 119 09/25/19 12:00 115 09/25/19 12:00 97.5 116 26 151/76 (101) 90 Height (Feet): 4 Height (Inches): 9.00 Weight (Pounds): 110 Microbiology Date/Time Source Procedure Growth Status 09/23/19 20:00 Blood Blood Culture - Preliminary Staphylococcus Species Resulted 09/23/19 19:45 Blood Blood Culture - Preliminary Staphylococcus Species Resulted 09/23/19 22:30 Nasal Nares MRSA Culture - Final Staphylococcus Aureus - Mrsa Complete 09/23/19 20:00 Nasopharynx Coronavirus COVID-19 PCR (NIYA) - Final Complete 09/23/19 20:00 Urine,Clean Catch Urine Culture - Preliminary Escherichia Coli Resulted 09/23/19 22:30 Rectum - Final NO CARBAPENEM-RESISTANT ENTEROBACTERI... Complete 09/23/19 22:30 Rectum VRE Culture - Final Enterococcus Faecalis - Vre Complete Laboratory Tests Test 09/25/19 21:25 09/26/19 05:50 09/26/19 05:55 POC Whole Blood Glucose 156 MG/DL (74-106) H White Blood Count 9.1 K/UL (4.8-10.8) # Red Blood Count 4.25 M/UL (4.20-5.40) Hemoglobin 14.7 G/DL (12.0-16.0) Hematocrit 44.7 % (37.0-47.0) Mean Corpuscular Volume 105 FL (80-99) H Mean Corpuscular Hemoglobin 34.6 PG (27.0-31.0) H Mean Corpuscular Hemoglobin Concent 32.9 G/DL (32.0-36.0) Red Cell Distribution Width 11.6 % (11.6-14.8) Platelet Count 115 K/UL (150-450) L Mean Platelet Volume 8.5 FL (6.5-10.1) Neutrophils (%) (Auto) % (45.0-75.0) Lymphocytes (%) (Auto) % (20.0-45.0) Monocytes (%) (Auto) % (1.0-10.0) Eosinophils (%) (Auto) % (0.0-3.0) Basophils (%) (Auto) % (0.0-2.0) Differential Total Cells Counted 100 Neutrophils % (Manual) 88 % (45-75) H Lymphocytes % (Manual) 3 % (20-45) L Monocytes % (Manual) 2 % (1-10) Eosinophils % (Manual) 0 % (0-3) Basophils % (Manual) 0 % (0-2) Band Neutrophils 7 % (0-8) Platelet Estimate Decreased L Platelet Morphology Normal Macrocytosis 1+ Sodium Level 146 MMOL/L (136-145) H Potassium Level 4.1 MMOL/L (3.5-5.1) Chloride Level 112 MMOL/L (98-107) H Carbon Dioxide Level 16 MMOL/L (21-32) L Anion Gap 18 mmol/L (5-15) H Blood Urea Nitrogen 23 mg/dL (7-18) H Creatinine 0.8 MG/DL (0.55-1.30) Estimat Glomerular Filtration Rate > 60 mL/min (>60) Glucose Level 129 MG/DL (74-106) H Calcium Level 8.8 MG/DL (8.5-10.1) Total Bilirubin 0.9 MG/DL (0.2-1.0) Aspartate Amino Transf (AST/SGOT) 45 U/L (15-37) H Alanine Aminotransferase (ALT/SGPT) 16 U/L (12-78) Alkaline Phosphatase 53 U/L (46-116) Total Protein 6.6 G/DL (6.4-8.2) Albumin 1.7 G/DL (3.4-5.0) L Globulin 4.9 g/dL Albumin/Globulin Ratio 0.3 (1.0-2.7) L Phosphorus Level 3.8 MG/DL (2.5-4.9) Magnesium Level 2.7 MG/DL (1.8-2.4) H Current Medications Medications (Trade) Dose Ordered Sig/Lisa Route PRN Reason Start Time Stop Time Status Last Admin Dose Admin Acetaminophen (Tylenol) 650 mg Q6H PRN ORAL Temp >100.5 09/24/19 01:30 10/24/19 01:29 Acetaminophen (Tylenol) 650 mg Q6H PRN RECTAL Temp >100.5 09/24/19 20:30 10/24/19 20:29 09/24/19 20:27 Dextrose (Dextrose 50%) 25 ml Q30M PRN IV Hypoglycemia 09/25/19 12:30 12/24/19 12:29 Dextrose (Dextrose 50%) 50 ml Q30M PRN IV Hypoglycemia 09/25/19 12:30 12/24/19 12:29 Donepezil HCl (Aricept) 10 mg DAILY ORAL 09/24/19 09:00 10/24/19 08:59 Famotidine (Pepcid I.v.) 20 mg Q12HR IVP 09/24/19 12:00 10/24/19 11:59 09/26/19 09:03 Heparin Sodium (Porcine) (Heparin 5000 units/ml) 5,000 units EVERY 12 HOURS SUBQ 09/24/19 09:00 11/08/19 08:59 09/25/19 20:39 Insulin Aspart (NovoLOG) BEFORE MEALS AND HS SUBQ 09/25/19 16:30 12/24/19 16:29 Megestrol Acetate (Megace) 40 mg BID ORAL 09/24/19 09:00 09/29/19 08:59 Memantine (Namenda) 10 mg BID ORAL 09/24/19 09:00 10/24/19 08:59 Piperacillin Sod/ Tazobactam Sod 3.375 gm/Sodium Chloride 110 ml @ 27.5 mls/hr Q8H IVPB 09/24/19 12:00 10/01/19 11:59 09/26/19 04:15 Polyethylene Glycol (Miralax) 17 gm HSPRN PRN ORAL Constipation 09/24/19 07:30 10/24/19 07:29 Sodium 1,000 ml @ 50 mls/hr Q20H IV 09/24/19 13:00 10/24/19 12:59 09/26/19 04:50 Vancomycin HCl (Vanco pharmacy to dose) 1 ea DAILY PRN MISC Per rx protocol 09/25/19 12:00 10/25/19 11:59 Vancomycin HCl 750 mg/Sodium Chloride 275 ml @ 183.333 mls/hr Q24H IVPB 09/26/19 14:00 10/01/19 13:59 Zolpidem Tartrate (Ambien) 5 mg HSPRN PRN ORAL Agitation 09/24/19 07:30 10/01/19 07:29 Marilyn Kulkarni MD Sep 26, 2019 11:13
--- NOTE | 2019-09-26 11:21 | Diagnostic Imaging Report ---
Indication: Shortness of breath Technique: One view of the chest Comparison: 09/23/2019 Findings: Interim marked worsening of bilateral edema versus infiltrate, with very dense consolidation now present in the inferior right upper lobe and left midlung periphery. There is persistent retrocardiac consolidation. There is probably some pleural fluid bilaterally, unchanged. The heart is borderline enlarged. Impression: Interim marked worsening of bilateral infiltrates versus edema, as described
--- NOTE | 2019-09-26 11:23 | Nephrology Progress Note ---
Assessment/Plan Problem List: (1) Electrolyte imbalance (2) Suspected COVID-19 virus infection (3) Alzheimer's dementia (4) At high risk for aspiration (5) Hypoalbuminemia (6) DNR no code (do not resuscitate) Assessment Hypokalemia Hypoalbuminemia Suspected cold with 19 virus infection UTI High aspiration risk Alzheimer's dementia DNR Plan September 25: Lab reviewed. IV changed to D5W. Stable from renal standpoint of view. Patient DNR. Patient is aspiration risk. Magnesium sulfate IV ordered IV hydration with potassium N.p.o. except medications, patient is aspiration risk Speech therapy evaluation Antibiotics Monitor electrolytes Per orders Subjective ROS Limited/Unobtainable: Yes Objective Objective Last 24 Hour Vital Signs Date Time Temp Pulse Resp B/P (MAP) Pulse Ox O2 Delivery O2 Flow Rate FiO2 09/26/19 09:00 Non-Rebreather 15.0 09/26/19 08:00 99.9 136 26 129/61 (83) 77 09/26/19 08:00 139 09/26/19 04:00 98.2 114 24 122/63 (82) 85 09/26/19 04:00 126 09/26/19 00:00 124 09/26/19 00:00 98.0 124 25 116/71 (86) 86 09/25/19 21:00 Non-Rebreather 15.0 09/25/19 20:00 116 09/25/19 20:00 98.8 116 25 122/65 (84) 88 09/25/19 16:00 97.5 119 26 129/63 (85) 90 09/25/19 16:00 119 09/25/19 12:00 115 09/25/19 12:00 97.5 116 26 151/76 (101) 90 Intake and Output 09/25/19 09/26/19 19:00 07:00 Intake Total 150 ml 550 ml Output Total 120 ml Balance 150 ml 430 ml IV Total 150 ml 550 ml Output Urine Total 120 ml # Voids 2 # Bowel Movements 1 1 Laboratory Tests 09/25/19 21:25: POC Whole Blood Glucose 156H 09/26/19 05:50: White Blood Count 9.1#, Red Blood Count 4.25, Hemoglobin 14.7, Hematocrit 44.7, Mean Corpuscular Volume 105H, Mean Corpuscular Hemoglobin 34.6H, Mean Corpuscular Hemoglobin Concent 32.9, Red Cell Distribution Width 11.6, Platelet Count 115L, Mean Platelet Volume 8.5, Neutrophils (%) (Auto) , Lymphocytes (%) ( Auto) , Monocytes (%) (Auto) , Eosinophils (%) (Auto) , Basophils (%) (Auto) , Differential Total Cells Counted 100, Neutrophils % (Manual) 88H, Lymphocytes % (Manual) 3L, Monocytes % (Manual) 2, Eosinophils % (Manual) 0, Basophils % ( Manual) 0, Band Neutrophils 7, Platelet Estimate DecreasedL, Platelet Morphology Normal, Macrocytosis 1+, Sodium Level 146H, Potassium Level 4.1, Chloride Level 112H, Carbon Dioxide Level 16L, Anion Gap 18H, Blood Urea Nitrogen 23H, Creatinine 0.8, Estimat Glomerular Filtration Rate > 60, Glucose Level 129H, Calcium Level 8.8, Total Bilirubin 0.9, Aspartate Amino Transf (AST/ SGOT) 45H, Alanine Aminotransferase (ALT/SGPT) 16, Alkaline Phosphatase 53, Total Protein 6.6, Albumin 1.7L, Globulin 4.9, Albumin/Globulin Ratio 0.3L 09/26/19 05:55: Phosphorus Level 3.8, Magnesium Level 2.7H Height (Feet): 4 Height (Inches): 9.00 Weight (Pounds): 110 General Appearance: no apparent distress, lethargic Cardiovascular: tachycardia Respiratory/Chest: decreased breath sounds Abdomen: distended Julio Mclean MD Sep 26, 2019 11:23
[2019-09-26 11:58] VITALS: BP 113/57
[2019-09-26] MEDS: Meropenem 500 MG in NS 55 ML IVPB SCH (13:11)
[2019-09-26] MEDS: Vancomycin 750mg/NS 275ml IVPB SCH ×2 (13:11)
--- NOTE | 2019-09-26 13:40 | NUR ---
BEDSIDE SWALLOW EVALUATION (FORMAL REPORT TO FOLLOW.) ARCH CUSHION PRESS OPERATOR ORDERS RECEIVED AND ACKNOWLEDGED FROM DR. DE JESUS. INITIAL IMPRESSIONS: S/S OF AT LEAST MODERATE OROPHARYNGEAL DYSPHAGIA COMPOUNDED BY PATIENT'S POOR BREATHING-SWALLOWING COORDINATION (ON BIPAP) AND HIGH RESPIRATORY RATE (56 BREATHS/MIN) EXACERBATED BY PATIENT BEING OBTUNDED RESULTING IN PATIENT BEING A HIGH RISK FOR ASPIRATION. NO PO TRIALS GIVEN DUE TO PATIENT BEING A VERY HIGH RISK FOR ASPIRATION, PATIENT SEEN AT BEDSIDE, UNABLE TO MAINTAIN ALERTNESS FOR PO TRIALS. PATIENT IS A HIGH RISK FOR ASPIRATION GIVEN RESPIRATORY RATE AND CURRENTLY ON BIPAP. PER POLST, WISHES FOR COMFORT-FOCUSED TREATMENT THEREFORE, RECOMMEND PATIENT CONTINUE TO BE NPO, ARCH CUSHION PRESS OPERATOR PLANS TO F/U WITH PATIENT FOR ONGOING ASSESSMENT OF PATIENT'S SWALLOWING STATUS AND SAFETY WITH PO. ARCH CUSHION PRESS OPERATOR MADE RN AWARE OF RESULTS AND RECOMMENDATIONS, WILL F/U TOMORROW. THANK YOU FOR THIS REFERRAL! ARCH CUSHION PRESS OPERATOR [phone]
--- NOTE | 2019-09-26 14:03 | Surgery Progress Note ---
Surgery Progress Note Subjective Symptoms: worse Additional Comments Respiratory declining. Overall declining. Not able to tolerate a diet for comfort. POLST reviewed. Objective Last 24 Hour Vital Signs Date Time Temp Pulse Resp B/P (MAP) Pulse Ox O2 Delivery O2 Flow Rate FiO2 09/26/19 11:58 99.5 141 56 113/57 (75) 79 09/26/19 09:00 Non-Rebreather 15.0 09/26/19 08:00 99.9 136 26 129/61 (83) 77 09/26/19 08:00 139 09/26/19 04:00 98.2 114 24 122/63 (82) 85 09/26/19 04:00 126 09/26/19 00:00 124 09/26/19 00:00 98.0 124 25 116/71 (86) 86 09/25/19 21:00 Non-Rebreather 15.0 09/25/19 20:00 116 09/25/19 20:00 98.8 116 25 122/65 (84) 88 09/25/19 16:00 97.5 119 26 129/63 (85) 90 09/25/19 16:00 119 I&O Intake and Output 09/25/19 09/26/19 19:00 07:00 Intake Total 150 ml 550 ml Output Total 120 ml Balance 150 ml 430 ml IV Total 150 ml 550 ml Output Urine Total 120 ml # Voids 2 # Bowel Movements 1 1 Dressing: other Wound: other Drains: other Cardiovascular: RSR Respiratory: decreased breath sounds Abdomen: soft, non-tender, present bowel sounds Extremities: no cyanosis Laboratory Tests Test 09/25/19 21:25 09/26/19 05:50 09/26/19 05:55 09/26/19 11:09 POC Whole Blood Glucose 156 MG/DL (74-106) H Pending White Blood Count 9.1 K/UL (4.8-10.8) # Red Blood Count 4.25 M/UL (4.20-5.40) Hemoglobin 14.7 G/DL (12.0-16.0) Hematocrit 44.7 % (37.0-47.0) Mean Corpuscular Volume 105 FL (80-99) H Mean Corpuscular Hemoglobin 34.6 PG (27.0-31.0) H Mean Corpuscular Hemoglobin Concent 32.9 G/DL (32.0-36.0) Red Cell Distribution Width 11.6 % (11.6-14.8) Platelet Count 115 K/UL (150-450) L Mean Platelet Volume 8.5 FL (6.5-10.1) Neutrophils (%) (Auto) % (45.0-75.0) Lymphocytes (%) (Auto) % (20.0-45.0) Monocytes (%) (Auto) % (1.0-10.0) Eosinophils (%) (Auto) % (0.0-3.0) Basophils (%) (Auto) % (0.0-2.0) Differential Total Cells Counted 100 Neutrophils % (Manual) 88 % (45-75) H Lymphocytes % (Manual) 3 % (20-45) L Monocytes % (Manual) 2 % (1-10) Eosinophils % (Manual) 0 % (0-3) Basophils % (Manual) 0 % (0-2) Band Neutrophils 7 % (0-8) Platelet Estimate Decreased L Platelet Morphology Normal Macrocytosis 1+ Sodium Level 146 MMOL/L (136-145) H Potassium Level 4.1 MMOL/L (3.5-5.1) Chloride Level 112 MMOL/L (98-107) H Carbon Dioxide Level 16 MMOL/L (21-32) L Anion Gap 18 mmol/L (5-15) H Blood Urea Nitrogen 23 mg/dL (7-18) H Creatinine 0.8 MG/DL (0.55-1.30) Estimat Glomerular Filtration Rate > 60 mL/min (>60) Glucose Level 129 MG/DL (74-106) H Calcium Level 8.8 MG/DL (8.5-10.1) Total Bilirubin 0.9 MG/DL (0.2-1.0) Aspartate Amino Transf (AST/SGOT) 45 U/L (15-37) H Alanine Aminotransferase (ALT/SGPT) 16 U/L (12-78) Alkaline Phosphatase 53 U/L (46-116) Total Protein 6.6 G/DL (6.4-8.2) Albumin 1.7 G/DL (3.4-5.0) L Globulin 4.9 g/dL Albumin/Globulin Ratio 0.3 (1.0-2.7) L Phosphorus Level 3.8 MG/DL (2.5-4.9) Magnesium Level 2.7 MG/DL (1.8-2.4) H Plan Problems: (1) UTI (urinary tract infection) (2) Decubitus skin ulcer Assessment & Plan: Pt presented on admission with multiple Pressure injuries, Hypertrophic Scar with resurfacing Pressure injury. Purple and indurated area at Sacrococcygeal area(L)2.2cm x (W)3.5cm with surrounding hypertrophy. (L)7cm x (W)9cm. L Heel is boggy with non-Blanching erythema. R Heel is Maroon and fluctuant. Pt has non-rebreather Mask and linear erythema with indentations noted to both cheeks. Skin barrier applied and soft padding placed between elastic and skin to minimize friction and pressure. Tx.Plan: Apply Moisture Barrier Paste to Sacrum. Cover with Optifoam drsg. Change every 3 days and prn. Apply Cavilon Skin Barrier to Malleoli and each heel. Cover each site with Optifoam drsg. Change every 7 days and prn. Apply Cavilon Skin Barrier to R and L Cheeks and both earlobes. Cover each cheek with Optifoam drsgs or Soft pads while pt is using oxygen mask. Reposition at least every 2hours or as tolerated. Off-load heels with Pillows APM/ZOHRA Mattress overlay. (3) GIB (gastrointestinal bleeding) (4) COPD exacerbation (5) At high risk for aspiration (6) Suspected COVID-19 virus infection (7) Dementia (8) Protein-calorie malnutrition, severe Assessment & Plan: DAILY ESTIMATED NEEDS: Needs based on Pulmonary, wounds 50kg (EMR wt) 25-35 kcals/kg 6538-5091 total kcals 1.25-2 g protein/kg 63-100 g total protein 25-30 mL/kcal mL/kg 7403-7820 total fluid mLs NUTRITION DIAGNOSIS: Increased kcal,protein, and MVI needs r/t wound healing as evidenced by multiple areas of skin breakdown, refer to WC eval. CURRENT DIET:NPO PO DIET RECOMMENDATIONS: Liberalized, regular diet as medically able (texture per ACCESS TECH) ADDITIONAL RECOMMENDATIONS: Ht 5'0", wt 30.5kg (67#) on last adm fall 2018, plz weigh on calibrated bed ACCESS TECH eval when appropriate for diet Wound care: Kyler BID Glucerna TID with meals NISS with meals for glycemic control Monitor lytes + hydration status daily, replete as needed (low mg) . (9) Advanced age (10) Alzheimer's dementia Raghav Moon Sep 26, 2019 14:03
--- NOTE | 2019-09-26 15:36 | NUR ---
BEDSIDE SWALLOW EVALUATION SWEATBAND DRUMMER ORDERS RECEIVED AND ACKNOWLEDGED FROM DR. DE JESUS. DYSPHAGIA RISK FACTORS FOR THIS 88 Y.O. ADVANCED AGED MALAY SPEAKING FEMALE: ACUTE: FEVER, HYPOXIA, LABILE GLUCOSE, ABNORMAL THYROID FUNCTION TEST, HTN, SEPSIS, DEMENTIA, BACTEREMIA, COPD, COVID-19 RESPIRATORY FAILURE ON 100% NRBM, COVID-19 POSITIVE, ELECTROLYTE IMBALANCE, HYPOALBUMINEMIA, HYPOKALEMIA, SEVERE HYPOKALEMIA, TACHYCARDIA, DEHYDRATION, LACTIC ACIDOSIS. H/O: ENCEPHALOPATHY, COPD, BEDBOUND, GIB, DECUBITUS SKIN ULCER, COPD EXACERBATION, UTI, PROTEIN-CALORIE MALNUTRITION, ALZHEIMER DEMENTIA, NONVERBAL. RELEVANT MEDS: AMBIEN (INSOMNIA). NAMENDA (CONFUSION). VITALS ON 15 L NRBM: HR: 150; RR: 56; SPO2 79% PER RN: NO MEDICATIONS GIVEN PO DUE TO PATIENT BEING A HIGH RISK FOR ASPIRATION. RN REPORTS ALSO PATIENT IS OBTUNDED AND UNABLE TO INCREASE PATIENTS ALERTNESS. POLST: DNR/DNI, INITIAL POLST STATES DESIRES FOR NO ALTERNATIVE NUTRITION/HYDRATION (AT THIS TIME, PATIENTS SON SUPPOSED TO COME TO HOSPITAL TODAY 09/26/19 TO CHANGE POLST TO OK WITH ALTERNATIVE NUTRITION/HYDRATION). PATIENT SEEN AT BEDSIDE, HAS NRBM PLACED AT 15L, PATIENT APPEARS TO BE GASPING FOR BREATH, DESPITE SWEATBAND DRUMMER'S MAX ATTEMPTS UNABLE TO INCREASE PATIENTS ALERTNESS TO PARTICIPATE IN SWALLOWING EVALUATION. INITIAL IMPRESSIONS: S/S OF AT LEAST MODERATE OROPHARYNGEAL DYSPHAGIA COMPOUNDED BY RESPIRATORY FAILURE REQUIRING NRBM AND HIGH RESPIRATORY RATE (56 BREATHS/MIN) RESULTING IN POOR BREATHING-SWALLOWING COORDINATION EXACERBATED BY PATIENT BEING OBTUNDED. PATIENT IS A HIGH RISK FOR ASPIRATION AT THIS TIME. NO PO TRIALS GIVEN DUE TO PATIENT BEING A VERY HIGH RISK FOR ASPIRATION. PATIENT IS A HIGH RISK FOR ASPIRATION GIVEN HIGH RESPIRATORY RATE AND CURRENTLY ON NRBM. RECOMMENDATIONS: 1. PATIENT IS NOT SAFE FOR PO INTAKE AT THIS TIME GIVEN HIGH RISK FOR ASPIRATION. --PATIENT WOULD BENEFIT FROM 12 [place] NGT FOR MEANS OF ALTERNATIVE NUTRITION/HYDRATION AND MEDICATION MANAGEMENT. NEED TO WAIT FOR PATIENT'S SON TO SIGN UPDATED POLST PRIOR TO PLACING. 2. PLEASE PROVIDE ORAL CARE BID TO MINIMIZE ORAL BIOFILM WHICH CAN INCREASE RISK FOR ASPIRATION PNA 3. SWEATBAND DRUMMER PLANS TO F/U FOR DYSPHAGIA TX AND MANAGEMENT. 4. PATIENT MAY NEED MBSS WHILE IN HOUSE TO FURTHER EVALUATE SWALLOW PHYSIOLOGY AND R/O SILENT ASPIRATION, PATIENT NOT A GOOD CANDIDATE AT THIS TIME DUE TO PATIENT'S CONDITION, WILL MONITOR PATIENT'S CANDIDACY. SWEATBAND DRUMMER PLANS TO F/U WITH PATIENT FOR ONGOING ASSESSMENT OF SWALLOWING STATUS AND SAFETY WITH PO. SWEATBAND DRUMMER MADE RN AWARE OF RESULTS AND RECOMMENDATIONS, WILL F/U TOMORROW. (COMPLETE REPORT CAN BE FOUND IN CARE ACTIVITY SECTION) THANK YOU FOR THIS REFERRAL! SWEATBAND DRUMMER [phone]
--- NOTE | 2019-09-26 15:45 | Cardiac Electrophysiology PN ---
Assessment/Plan Assessment/Plan 1. Sinus tachycardia, likely due to UTI, sepsis and dehydration. The patient's glucose is not controlled either. EF 45% The patient is DNR/DNI.On iv Abx 2. Covid Respiratory failure on 100% NRB Face Mask. Change to BIPAP. DNR/DNI 3. Severe hypokalemia 2.6. Replace intravenously. 3. Lactic acidosis. Patient was started on IV antibiotic for her sepsis. 4. Nonverbal. 5. DNR/DNI. 6. Advanced dementia. CRISTINA RN Subjective Subjective SOB and tachycardic despite Oxygen. RN at bedside. Isolation for Covid Objective Last 24 Hour Vital Signs Date Time Temp Pulse Resp B/P (MAP) Pulse Ox O2 Delivery O2 Flow Rate FiO2 09/26/19 12:00 150 09/26/19 11:58 99.5 141 56 113/57 (75) 79 09/26/19 09:00 Non-Rebreather 15.0 09/26/19 08:00 99.9 136 26 129/61 (83) 77 09/26/19 08:00 139 09/26/19 04:00 98.2 114 24 122/63 (82) 85 09/26/19 04:00 126 09/26/19 00:00 124 09/26/19 00:00 98.0 124 25 116/71 (86) 86 09/25/19 21:00 Non-Rebreather 15.0 09/25/19 20:00 116 09/25/19 20:00 98.8 116 25 122/65 (84) 88 09/25/19 16:00 97.5 119 26 129/63 (85) 90 09/25/19 16:00 119 Intake and Output 09/25/19 09/26/19 19:00 07:00 Intake Total 150 ml 550 ml Output Total 120 ml Balance 150 ml 430 ml IV Total 150 ml 550 ml Output Urine Total 120 ml # Voids 2 # Bowel Movements 1 1 Laboratory Tests Test 09/25/19 21:25 09/26/19 05:50 09/26/19 05:55 09/26/19 11:09 POC Whole Blood Glucose 156 MG/DL (74-106) H Pending White Blood Count 9.1 K/UL (4.8-10.8) # Red Blood Count 4.25 M/UL (4.20-5.40) Hemoglobin 14.7 G/DL (12.0-16.0) Hematocrit 44.7 % (37.0-47.0) Mean Corpuscular Volume 105 FL (80-99) H Mean Corpuscular Hemoglobin 34.6 PG (27.0-31.0) H Mean Corpuscular Hemoglobin Concent 32.9 G/DL (32.0-36.0) Red Cell Distribution Width 11.6 % (11.6-14.8) Platelet Count 115 K/UL (150-450) L Mean Platelet Volume 8.5 FL (6.5-10.1) Neutrophils (%) (Auto) % (45.0-75.0) Lymphocytes (%) (Auto) % (20.0-45.0) Monocytes (%) (Auto) % (1.0-10.0) Eosinophils (%) (Auto) % (0.0-3.0) Basophils (%) (Auto) % (0.0-2.0) Differential Total Cells Counted 100 Neutrophils % (Manual) 88 % (45-75) H Lymphocytes % (Manual) 3 % (20-45) L Monocytes % (Manual) 2 % (1-10) Eosinophils % (Manual) 0 % (0-3) Basophils % (Manual) 0 % (0-2) Band Neutrophils 7 % (0-8) Platelet Estimate Decreased L Platelet Morphology Normal Macrocytosis 1+ Sodium Level 146 MMOL/L (136-145) H Potassium Level 4.1 MMOL/L (3.5-5.1) Chloride Level 112 MMOL/L (98-107) H Carbon Dioxide Level 16 MMOL/L (21-32) L Anion Gap 18 mmol/L (5-15) H Blood Urea Nitrogen 23 mg/dL (7-18) H Creatinine 0.8 MG/DL (0.55-1.30) Estimat Glomerular Filtration Rate > 60 mL/min (>60) Glucose Level 129 MG/DL (74-106) H Calcium Level 8.8 MG/DL (8.5-10.1) Total Bilirubin 0.9 MG/DL (0.2-1.0) Aspartate Amino Transf (AST/SGOT) 45 U/L (15-37) H Alanine Aminotransferase (ALT/SGPT) 16 U/L (12-78) Alkaline Phosphatase 53 U/L (46-116) Total Protein 6.6 G/DL (6.4-8.2) Albumin 1.7 G/DL (3.4-5.0) L Globulin 4.9 g/dL Albumin/Globulin Ratio 0.3 (1.0-2.7) L Phosphorus Level 3.8 MG/DL (2.5-4.9) Magnesium Level 2.7 MG/DL (1.8-2.4) H Microbiology Date/Time Source Procedure Growth Status 09/23/19 20:00 Blood Blood Culture - Preliminary Staphylococcus Species Resulted 09/23/19 19:45 Blood Blood Culture - Preliminary Staphylococcus Species Resulted 09/23/19 22:30 Nasal Nares MRSA Culture - Final Staphylococcus Aureus - Mrsa Complete 09/23/19 20:00 Nasopharynx Coronavirus COVID-19 PCR (NIYA) - Final Complete 09/23/19 20:00 Urine,Clean Catch Urine Culture - Preliminary Escherichia Coli Resulted 09/23/19 22:30 Rectum - Final NO CARBAPENEM-RESISTANT ENTEROBACTERI... Complete 09/23/19 22:30 Rectum VRE Culture - Final Enterococcus Faecalis - Vre Complete Objective HEAD AND NECK: Showed no JVD. LUNGS: Coarse rhonchi. CARDIOVASCULAR: Shows regular S1 and S2 with no gallop. ABDOMEN: Soft. EXTREMITIES: 1+ pitting edema. Parish Smith MD Sep 26, 2019 15:45
[2019-09-26 16:00] VITALS: BP 134/35
--- NOTE | 2019-09-26 16:39 | Pulmonology Progress Note ---
Subjective ROS Limited/Unobtainable: Yes Interval Events: Comfirmed COVID 19 pcr Constitutional: Reports: fever, other - last night HEENT: Repors: no symptoms Respiratory: Reports: dry cough, shortness of breath Cardiovascular: Reports: no symptoms Gastrointestinal/Abdominal: Reports: no symptoms Genitourinary: Reports: no symptoms Allergies: Coded Allergies: No Known Allergies (Unverified , 03/08/12) All Systems: reviewed and negative except above Objective Last 24 Hour Vital Signs Date Time Temp Pulse Resp B/P (MAP) Pulse Ox O2 Delivery O2 Flow Rate FiO2 09/26/19 12:00 150 09/26/19 11:58 99.5 141 56 113/57 (75) 79 09/26/19 09:00 Non-Rebreather 15.0 09/26/19 08:00 99.9 136 26 129/61 (83) 77 09/26/19 08:00 139 09/26/19 04:00 98.2 114 24 122/63 (82) 85 09/26/19 04:00 126 09/26/19 00:00 124 09/26/19 00:00 98.0 124 25 116/71 (86) 86 09/25/19 21:00 Non-Rebreather 15.0 09/25/19 20:00 116 09/25/19 20:00 98.8 116 25 122/65 (84) 88 Intake and Output 09/25/19 09/26/19 19:00 07:00 Intake Total 150 ml 550 ml Output Total 120 ml Balance 150 ml 430 ml IV Total 150 ml 550 ml Output Urine Total 120 ml # Voids 2 # Bowel Movements 1 1 General Appearance: no acute distress HEENT: normocephalic Respiratory: chest wall non-tender, decreased breath sounds Cardiovascular: normal peripheral pulses Abdomen: normal bowel sounds Microbiology Date/Time Source Procedure Growth Status 09/23/19 20:00 Blood Blood Culture - Preliminary Staphylococcus Species Resulted 09/23/19 19:45 Blood Blood Culture - Preliminary Staphylococcus Species Resulted 09/23/19 22:30 Nasal Nares MRSA Culture - Final Staphylococcus Aureus - Mrsa Complete 09/23/19 20:00 Nasopharynx Coronavirus COVID-19 PCR (NIYA) - Final Complete 09/23/19 20:00 Urine,Clean Catch Urine Culture - Preliminary Escherichia Coli Resulted 09/23/19 22:30 Rectum - Final NO CARBAPENEM-RESISTANT ENTEROBACTERI... Complete 09/23/19 22:30 Rectum VRE Culture - Final Enterococcus Faecalis - Vre Complete Laboratory Tests 09/25/19 21:25: POC Whole Blood Glucose 156H 09/26/19 05:36: POC Whole Blood Glucose 134H 09/26/19 05:50: White Blood Count 9.1#, Red Blood Count 4.25, Hemoglobin 14.7, Hematocrit 44.7, Mean Corpuscular Volume 105H, Mean Corpuscular Hemoglobin 34.6H, Mean Corpuscular Hemoglobin Concent 32.9, Red Cell Distribution Width 11.6, Platelet Count 115L, Mean Platelet Volume 8.5, Neutrophils (%) (Auto) , Lymphocytes (%) ( Auto) , Monocytes (%) (Auto) , Eosinophils (%) (Auto) , Basophils (%) (Auto) , Differential Total Cells Counted 100, Neutrophils % (Manual) 88H, Lymphocytes % (Manual) 3L, Monocytes % (Manual) 2, Eosinophils % (Manual) 0, Basophils % ( Manual) 0, Band Neutrophils 7, Platelet Estimate DecreasedL, Platelet Morphology Normal, Macrocytosis 1+, Sodium Level 146H, Potassium Level 4.1, Chloride Level 112H, Carbon Dioxide Level 16L, Anion Gap 18H, Blood Urea Nitrogen 23H, Creatinine 0.8, Estimat Glomerular Filtration Rate > 60, Glucose Level 129H, Calcium Level 8.8, Total Bilirubin 0.9, Aspartate Amino Transf (AST/ SGOT) 45H, Alanine Aminotransferase (ALT/SGPT) 16, Alkaline Phosphatase 53, Total Protein 6.6, Albumin 1.7L, Globulin 4.9, Albumin/Globulin Ratio 0.3L 09/26/19 05:55: Phosphorus Level 3.8, Magnesium Level 2.7H 09/26/19 11:09: POC Whole Blood Glucose [Pending] 09/26/19 16:14: POC Whole Blood Glucose 177H Current Medications Medications (Trade) Dose Ordered Sig/Lisa Route PRN Reason Start Time Stop Time Status Last Admin Dose Admin Acetaminophen (Tylenol) 650 mg Q6H PRN ORAL Temp >100.5 09/24/19 01:30 10/24/19 01:29 Acetaminophen (Tylenol) 650 mg Q6H PRN RECTAL Temp >100.5 09/24/19 20:30 10/24/19 20:29 09/24/19 20:27 Dexamethasone (Decadron) 4 mg DAILY ORAL 09/26/19 12:30 10/05/19 09:01 Dextrose 1,000 ml @ 50 mls/hr Q20H IV 09/26/19 11:30 10/26/19 11:29 09/26/19 11:29 Dextrose (Dextrose 50%) 25 ml Q30M PRN IV Hypoglycemia 09/25/19 12:30 12/24/19 12:29 Dextrose (Dextrose 50%) 50 ml Q30M PRN IV Hypoglycemia 09/25/19 12:30 12/24/19 12:29 Donepezil HCl (Aricept) 10 mg DAILY ORAL 09/24/19 09:00 10/24/19 08:59 Famotidine (Pepcid I.v.) 20 mg Q12HR IVP 09/24/19 12:00 10/24/19 11:59 09/26/19 09:03 Heparin Sodium (Porcine) (Heparin 5000 units/ml) 5,000 units EVERY 12 HOURS SUBQ 09/24/19 09:00 11/08/19 08:59 09/25/19 20:39 Insulin Aspart (NovoLOG) BEFORE MEALS AND HS SUBQ 09/25/19 16:30 12/24/19 16:29 Megestrol Acetate (Megace) 40 mg BID ORAL 09/24/19 09:00 09/29/19 08:59 Memantine (Namenda) 10 mg BID ORAL 09/24/19 09:00 10/24/19 08:59 Meropenem 500 mg/ Sodium Chloride 55 ml @ 110 mls/hr Q12H IVPB 09/26/19 13:00 10/01/19 12:59 09/26/19 13:11 Polyethylene Glycol (Miralax) 17 gm HSPRN PRN ORAL Constipation 09/24/19 07:30 10/24/19 07:29 Vancomycin HCl (Vanco pharmacy to dose) 1 ea DAILY PRN MISC Per rx protocol 09/25/19 12:00 10/25/19 11:59 Vancomycin HCl 750 mg/Sodium Chloride 275 ml @ 183.333 mls/hr Q24H IVPB 09/26/19 14:00 10/01/19 13:59 09/26/19 13:11 Zolpidem Tartrate (Ambien) 5 mg HSPRN PRN ORAL Agitation 09/24/19 07:30 10/01/19 07:29 Assessment/Plan Assessment/Plan IMPRESSION: 1. UTI. 2. Confirmed COVID-19 pneumonia. 3. Dementia. 4. COPD. 5. Encephalopathy. 6. DNR DISCUSSION: DNI status to maintain. The patient needs broad-spectrum antibiotics, IV fluids , replacement of potassium. She may be a candidate for remdesivir and steroids. Will defer to ID. I will follow machine fixer and order oxygen and pulmonary hygiene. Currently on non-rebreather mask. Raymond Alcaraz M.D. Raymond Alcaraz MD Sep 26, 2019 16:39
[2019-09-26] MEDS: Acetaminophen 650 MG SUPP RECTAL PRN (18:04)
--- NOTE | 2019-09-26 19:46 | NUR ---
HAND-OFF: Report given to DANICA Hernandez.Endorsed that son would like to be called by Dr. Coello tomorrow morning.Dr. Coello is aware and gave him son's phone number.
--- NOTE | 2019-09-26 19:50 | NUR ---
NURSE NOTES: Report received from DANICA Nguyễn. Patient is non-verbal, oriented x0. Eyes closed and non responsive to tactile stimuli. Patient is on non-rebreather mask at 15L / min. Heels are offloaded with pillow under bilateral legs. Call light and bedside table within reach. Frequent room checks will be provided. Bed is at lowest position, locked and siderails up. quality assurance monitor final is functioning and intact. Will continue with plan of care.
[2019-09-26 20:00] VITALS: BP 92/42
--- NOTE | 2019-09-26 21:15 | History and Physical Report ---
DATE OF ADMISSION: 09/23/2019 DATE AND TIME SEEN: 09/24/2019 at 9 a.m. CONSULTANTS: 1. Raymond Alcaraz MD. 2. Marilyn Kulkarni MD. 3. Julio Mclean MD. CHIEF COMPLAINT: Fever, hypoxia, UTI, suspect COVID. BRIEF HISTORY: This is an 88-year-old female, presented to [facility] last night with above-mentioned diagnosis. The patient was admitted to telemetry. Currently O2 mask, sleeping in bed, not talking much. REVIEW OF SYSTEMS: Unavailable. PAST MEDICAL HISTORY: Include GI bleed, decubitus, COPD, dementia, malnutrition, and Alzheimer's. PAST SURGICAL HISTORY: Unknown. MEDICATIONS: Include potassium, heparin, calcium, ferrous sulfate, Megace, benazepril, memantine, zolpidem, dexamethasone, Zosyn. ALLERGIES: Denies. SOCIAL HISTORY: Unable to obtain secondary to the patient's lethargy. OBJECTIVE: GENERAL: Sleeping in bed, O2 mask in place, not talking much, lethargic. VITAL SIGNS: Temperature 99, pulse 110, respirations 22, blood pressure 137/73. HEENT: Normocephalic, atraumatic. NECK: Trachea midline. CARDIOVASCULAR: No peripheral edema. LUNGS: O2 mask in place, slight short of breath. ABDOMEN: No apparent wounds. EXTREMITIES: Show no cyanosis or clubbing. LABORATORY AND DIAGNOSTIC DATA: Labs at this time show white count 4.6, platelet 144,000, otherwise CBC is normal. BMP show potassium 2.6, BUN 22, glucose 289. Albumin 2.5. Urinalysis show positive nitrite, 1+ leukocyte esterase. ASSESSMENT: Fever, hypoxia, UTI, suspect COVID, hypokalemia, diabetes, GI bleed, decubitus ulcer, COPD, dementia, malnutrition, Alzheimer's. PLAN: Resume home medications. O2 and pulmonary treatment. Antibiotics per Infectious Disease. Blood pressure, blood sugar, and pain control. Dietary followup. PT and dietary evaluation. CBC and BMP in the morning. Heber Coello D.O. DR: JULISA/ANNEMARIE JOB#: [id number] CC: CATHI
[2019-09-27] VITALS: BP 86/35
[2019-09-27] MEDS: Meropenem 500 MG in NS 55 ML IVPB SCH ×2 (00:56→13:22)
[2019-09-27 04:00] VITALS: BP 78/39
[2019-09-27] MEDS: NovoLOG Insulin Flexpen SUBQ SCH ×3 (06:30→17:27)
--- NOTE | 2019-09-27 06:46 | General Progress Note ---
Assessment/Plan Problem List: (1) Abnormal thyroid blood test ICD Codes: R79.89 - Other specified abnormal findings of blood chemistry SNOMED: 625268908, [id number] (2) Hyperglycemia ICD Codes: R73.9 - Hyperglycemia, unspecified SNOMED: 39407307 (3) Suspected COVID-19 virus infection ICD Codes: Z20.828 - Contact with and (suspected) exposure to other viral communicable diseases SNOMED: 110260169 (4) Alzheimer's dementia ICD Codes: G30.9 - Alzheimer's disease, unspecified; F02.80 - Dementia in other diseases classified elsewhere without behavioral disturbance SNOMED: 08292989 Status: unchanged Assessment/Plan: continue Novolog sliding scale ac / hs hypoglycemia protocol in order thyroid labs are mostly consistent with "sick euthyroid" no need for thyroid medication Subjective Allergies: Coded Allergies: No Known Allergies (Unverified , 03/08/12) Subjective events noted glucose values are stable Item Value Date Time Bedside Blood Glucose 236 mg/dl H 09/26/19 2100 Bedside Blood Glucose 177 mg/dl H 09/26/19 1630 Bedside Blood Glucose 114 mg/dl 09/26/19 1124 Bedside Blood Glucose 134 mg/dl H 09/26/19 0630 Objective Last 24 Hour Vital Signs Date Time Temp Pulse Resp B/P (MAP) Pulse Ox O2 Delivery O2 Flow Rate FiO2 09/27/19 04:00 117 09/27/19 04:00 97.6 123 29 78/39 (52) 82 09/27/19 00:00 127 09/27/19 00:00 97.5 120 28 86/35 (52) 82 09/26/19 21:00 Non-Rebreather 15.0 09/26/19 20:00 96.9 150 32 92/42 (59) 75 09/26/19 20:00 150 09/26/19 18:34 101.1 09/26/19 16:00 101.1 140 52 134/35 (68) 79 09/26/19 16:00 150 09/26/19 12:00 150 09/26/19 11:58 99.5 141 56 113/57 (75) 79 09/26/19 09:00 Non-Rebreather 15.0 09/26/19 08:00 99.9 136 26 129/61 (83) 77 09/26/19 08:00 139 Intake and Output 09/26/19 09/27/19 19:00 07:00 # Bowel Movements 1 Laboratory Tests 09/26/19 11:09: POC Whole Blood Glucose [Pending] 09/26/19 16:14: POC Whole Blood Glucose 177H 09/26/19 22:05: POC Whole Blood Glucose [Pending] 09/27/19 05:32: POC Whole Blood Glucose [Pending] 09/27/19 06:22: White Blood Count [Pending], Red Blood Count [Pending], Hemoglobin [Pending], Hematocrit [Pending], Mean Corpuscular Volume [Pending], Mean Corpuscular Hemoglobin [Pending], Mean Corpuscular Hemoglobin Concent [Pending], Red Cell Distribution Width [Pending], Platelet Count [Pending], Mean Platelet Volume [ Pending], Neutrophils (%) (Auto) [Pending], Lymphocytes (%) (Auto) [Pending], Monocytes (%) (Auto) [Pending], Eosinophils (%) (Auto) [Pending], Basophils (%) (Auto) [Pending], Sodium Level [Pending], Potassium Level [Pending], Chloride Level [Pending], Carbon Dioxide Level [Pending], Blood Urea Nitrogen [Pending], Creatinine [Pending], Estimat Glomerular Filtration Rate [Pending], Glucose Level [Pending], Calcium Level [Pending] Height (Feet): 4 Height (Inches): 9.00 Weight (Pounds): 110 General Appearance: no apparent distress Neck: normal alignment Respiratory/Chest: decreased breath sounds Abdomen: normal bowel sounds Objective Current Medications Medications (Trade) Dose Ordered Sig/Lisa Route PRN Reason Start Time Stop Time Status Last Admin Dose Admin Acetaminophen (Tylenol) 650 mg Q6H PRN ORAL Temp >100.5 09/24/19 01:30 10/24/19 01:29 Acetaminophen (Tylenol) 650 mg Q6H PRN RECTAL Temp >100.5 09/24/19 20:30 10/24/19 20:29 09/26/19 18:04 Dexamethasone (Decadron) 4 mg DAILY ORAL 09/26/19 12:30 10/05/19 09:01 Dextrose 1,000 ml @ 50 mls/hr Q20H IV 09/26/19 11:30 10/26/19 11:29 09/26/19 11:29 Dextrose (Dextrose 50%) 25 ml Q30M PRN IV Hypoglycemia 09/25/19 12:30 12/24/19 12:29 Dextrose (Dextrose 50%) 50 ml Q30M PRN IV Hypoglycemia 09/25/19 12:30 12/24/19 12:29 Donepezil HCl (Aricept) 10 mg DAILY ORAL 09/24/19 09:00 10/24/19 08:59 Famotidine (Pepcid I.v.) 20 mg Q12HR IVP 09/24/19 12:00 10/24/19 11:59 09/26/19 21:58 Heparin Sodium (Porcine) (Heparin 5000 units/ml) 5,000 units EVERY 12 HOURS SUBQ 09/24/19 09:00 11/08/19 08:59 09/25/19 20:39 Insulin Aspart (NovoLOG) BEFORE MEALS AND HS SUBQ 09/25/19 16:30 12/24/19 16:29 Megestrol Acetate (Megace) 40 mg BID ORAL 09/24/19 09:00 09/29/19 08:59 Memantine (Namenda) 10 mg BID ORAL 09/24/19 09:00 10/24/19 08:59 Meropenem 500 mg/ Sodium Chloride 55 ml @ 110 mls/hr Q12H IVPB 09/26/19 13:00 10/01/19 12:59 09/27/19 00:56 Polyethylene Glycol (Miralax) 17 gm HSPRN PRN ORAL Constipation 09/24/19 07:30 10/24/19 07:29 Vancomycin HCl (Vanco pharmacy to dose) 1 ea DAILY PRN MISC Per rx protocol 09/25/19 12:00 10/25/19 11:59 Vancomycin HCl 750 mg/Sodium Chloride 275 ml @ 183.333 mls/hr Q24H IVPB 09/26/19 14:00 10/01/19 13:59 09/26/19 13:11 Zolpidem Tartrate (Ambien) 5 mg HSPRN PRN ORAL Agitation 09/24/19 07:30 10/01/19 07:29 Soto Nieto MD Sep 27, 2019 06:46
[2019-09-27 07:14] LABS: ANION GAP 13 mmol/L (5-15); BLOOD UREA NITROGEN 43 mg/dL (7-18); CALCIUM 8.1 MG/DL (8.5-10.1); CARBON DIOXIDE 18 MMOL/L (21-32); CHLORIDE 110 MMOL/L (98-107); CREATININE 1.5 MG/DL (0.55-1.30); POTASSIUM 5.5 MMOL/L (3.5-5.1); SODIUM 141 MMOL/L (136-145)
--- NOTE | 2019-09-27 07:50 | NUR ---
NURSE NOTES: Pt. non verbal on non-rebreather mask on 15L, O2 sat 81-83 at this time. Per night RN MD aware of O2 sat as low as 70s. RR 28, labored. Repositioned for better breathing. Bed on lowest position. Will continue to monitor.
--- NOTE | 2019-09-27 07:59 | NUR ---
HAND-OFF: Report given to DANICA Borja. Endorsed plan of care and made aware of polst to be discussed with son by doctor.
[2019-09-27 08:00] VITALS: BP 103/34
[2019-09-27 08:47] LABS: HEMATOCRIT 36.8 % (37.0-47.0); MEAN CORPUSCULAR VOLUME 109 FL (80-99); PLATELET COUNT 107 K/UL (150-450); RED BLOOD COUNT 3.39 M/UL (4.20-5.40); RED CELL DISTRIBUTION WIDTH 12.3 % (11.6-14.8); WHITE BLOOD COUNT 13.2 K/UL (4.8-10.8)
[2019-09-27] MEDS: Donepezil 10mg tab ORAL SCH (09:00)
[2019-09-27] MEDS: Memantine 10mg tab ORAL SCH ×2 (09:00→17:24)
[2019-09-27] MEDS: Heparin 5000 units/ml inj SUBQ SCH (09:00)
--- NOTE | 2019-09-27 09:10 | NUR ---
NURSE NOTES: Pt.'s vital sign, RR, hypoxic state reported to Dr. Coello and Dr. Alcaraz. No new orders at this time. Will continue to monitor.
--- NOTE | 2019-09-27 10:00 | Pulmonology Progress Note ---
Subjective ROS Limited/Unobtainable: Yes Interval Events: Comfirmed COVID 19 pcr Constitutional: Reports: fever, other - last night HEENT: Repors: no symptoms Respiratory: Reports: dry cough, shortness of breath Cardiovascular: Reports: no symptoms Gastrointestinal/Abdominal: Reports: no symptoms Genitourinary: Reports: no symptoms Allergies: Coded Allergies: No Known Allergies (Unverified , 03/08/12) All Systems: reviewed and negative except above Objective Last 24 Hour Vital Signs Date Time Temp Pulse Resp B/P (MAP) Pulse Ox O2 Delivery O2 Flow Rate FiO2 09/27/19 08:00 97.5 118 28 103/34 (57) 84 09/27/19 04:00 117 09/27/19 04:00 97.6 123 29 78/39 (52) 82 09/27/19 00:00 127 09/27/19 00:00 97.5 120 28 86/35 (52) 82 09/26/19 21:00 Non-Rebreather 15.0 09/26/19 20:00 96.9 150 32 92/42 (59) 75 09/26/19 20:00 150 09/26/19 18:34 101.1 09/26/19 16:00 101.1 140 52 134/35 (68) 79 09/26/19 16:00 150 09/26/19 12:00 150 09/26/19 11:58 99.5 141 56 113/57 (75) 79 Intake and Output 09/26/19 09/27/19 19:00 07:00 Output Total 200 ml Balance -200 ml Output Urine Total 200 ml # Bowel Movements 1 General Appearance: no acute distress HEENT: normocephalic Respiratory: chest wall non-tender, decreased breath sounds Cardiovascular: normal peripheral pulses Abdomen: normal bowel sounds Laboratory Tests 09/26/19 11:09: POC Whole Blood Glucose [Pending] 09/26/19 16:14: POC Whole Blood Glucose 177H 09/26/19 22:05: POC Whole Blood Glucose [Pending] 09/27/19 05:32: POC Whole Blood Glucose [Pending] 09/27/19 06:22: Sodium Level 141, Potassium Level 5.5H, Chloride Level 110H, Carbon Dioxide Level 18L, Anion Gap 13, Blood Urea Nitrogen 43H, Creatinine 1.5#H, Estimat Glomerular Filtration Rate 32.9, Glucose Level 273#H, Calcium Level 8.1L 09/27/19 08:30: White Blood Count 13.2H, Red Blood Count 3.39L, Hemoglobin 12.0, Hematocrit 36.8L, Mean Corpuscular Volume 109H, Mean Corpuscular Hemoglobin 35.4H, Mean Corpuscular Hemoglobin Concent 32.6, Red Cell Distribution Width 12.3, Platelet Count 107L, Mean Platelet Volume 9.7, Neutrophils (%) (Auto) , Lymphocytes (%) ( Auto) , Monocytes (%) (Auto) , Eosinophils (%) (Auto) , Basophils (%) (Auto) , Differential Total Cells Counted 100, Neutrophils % (Manual) 95H, Lymphocytes % (Manual) 2L, Monocytes % (Manual) 3, Eosinophils % (Manual) 0, Basophils % ( Manual) 0, Band Neutrophils 0, Platelet Estimate DecreasedL, Platelet Morphology Normal, Polychromasia 1+, Macrocytosis 1+ Current Medications Medications (Trade) Dose Ordered Sig/Lisa Route PRN Reason Start Time Stop Time Status Last Admin Dose Admin Acetaminophen (Tylenol) 650 mg Q6H PRN ORAL Temp >100.5 09/24/19 01:30 10/24/19 01:29 Acetaminophen (Tylenol) 650 mg Q6H PRN RECTAL Temp >100.5 09/24/19 20:30 10/24/19 20:29 09/26/19 18:04 Dexamethasone (Decadron) 4 mg DAILY ORAL 09/26/19 12:30 10/05/19 09:01 Dextrose 1,000 ml @ 50 mls/hr Q20H IV 09/26/19 11:30 10/26/19 11:29 09/27/19 09:54 Dextrose (Dextrose 50%) 25 ml Q30M PRN IV Hypoglycemia 09/25/19 12:30 12/24/19 12:29 Dextrose (Dextrose 50%) 50 ml Q30M PRN IV Hypoglycemia 09/25/19 12:30 12/24/19 12:29 Donepezil HCl (Aricept) 10 mg DAILY ORAL 09/24/19 09:00 10/24/19 08:59 Famotidine (Pepcid I.v.) 20 mg Q12HR IVP 09/24/19 12:00 10/24/19 11:59 09/27/19 09:46 Heparin Sodium (Porcine) (Heparin 5000 units/ml) 5,000 units EVERY 12 HOURS SUBQ 09/24/19 09:00 11/08/19 08:59 09/25/19 20:39 Insulin Aspart (NovoLOG) BEFORE MEALS AND HS SUBQ 09/25/19 16:30 12/24/19 16:29 Megestrol Acetate (Megace) 40 mg BID ORAL 09/24/19 09:00 09/29/19 08:59 Memantine (Namenda) 10 mg BID ORAL 09/24/19 09:00 10/24/19 08:59 Meropenem 500 mg/ Sodium Chloride 55 ml @ 110 mls/hr Q12H IVPB 09/26/19 13:00 10/01/19 12:59 09/27/19 00:56 Polyethylene Glycol (Miralax) 17 gm HSPRN PRN ORAL Constipation 09/24/19 07:30 10/24/19 07:29 Vancomycin HCl (Vanco pharmacy to dose) 1 ea DAILY PRN MISC Per rx protocol 09/25/19 12:00 10/25/19 11:59 Vancomycin HCl 750 mg/Sodium Chloride 275 ml @ 183.333 mls/hr Q24H IVPB 09/26/19 14:00 10/01/19 13:59 09/26/19 13:11 Zolpidem Tartrate (Ambien) 5 mg HSPRN PRN ORAL Agitation 09/24/19 07:30 10/01/19 07:29 Assessment/Plan Assessment/Plan IMPRESSION: 1. UTI. 2. Confirmed COVID-19 pneumonia. 3. Dementia. 4. COPD. 5. Encephalopathy. 6. DNR DISCUSSION: DNI status to maintain. The patient needs broad-spectrum antibiotics, IV fluids , replacement of potassium. I will follow inspector repairer. Currently on non-rebreather mask. Loyda Atwood Omar Syed MD Sep 27, 2019 10:00
--- NOTE | 2019-09-27 10:11 | NUR ---
CASE MANAGEMENT:REVIEW 09/27/19 SI: COVID PNEUMONIA COPD. UTI. ENCEPHALOPATHY 97.5 118 28 103/34 84% ON 15L NON REBREATHER WBC+13.2 PLT-107 K+5.5 BUN+43 CR+1.5 IS: IV VANCOMYCIN Q24 IV MEROPENEM Q12 IVF@50/HR DECADRON PO QD IV PEPCID Q12 HEPARIN SQ Q12 : TELEMETRY STATUS DCP: FROM [facility]
--- NOTE | 2019-09-27 10:30 | NUR ---
NURSE NOTES: Call made to Pt's son (Tod), informed of Pt's situation. RR, hypoxia and declining state.
--- NOTE | 2019-09-27 11:01 | Infectious Diseases Prog Note ---
Assessment/Plan Assessment/Plan antibiotics ; vancomycin iv, meropenem A 1. COVID 19 pneumonia on 15 liters O2, saturation 79 percent s/p ivermectin 2. staph sepsis 3. e.coli esbl UTI 4. COPD 5. hypertension 6. dementia P 1. continue iv vancomycin 2. continue meropenem 3. continue dexamethasone day 2 4. will follow up cultures 5. continue isolation Subjective ROS Limited/Unobtainable: Yes Allergies: Coded Allergies: No Known Allergies (Unverified , 03/08/12) Objective Last 24 Hour Vital Signs Date Time Temp Pulse Resp B/P (MAP) Pulse Ox O2 Delivery O2 Flow Rate FiO2 09/27/19 08:00 116 09/27/19 08:00 97.5 118 28 103/34 (57) 84 09/27/19 04:00 117 09/27/19 04:00 97.6 123 29 78/39 (52) 82 09/27/19 00:00 127 09/27/19 00:00 97.5 120 28 86/35 (52) 82 09/26/19 21:00 Non-Rebreather 15.0 09/26/19 20:00 96.9 150 32 92/42 (59) 75 09/26/19 20:00 150 09/26/19 18:34 101.1 09/26/19 16:00 101.1 140 52 134/35 (68) 79 09/26/19 16:00 150 09/26/19 12:00 150 09/26/19 11:58 99.5 141 56 113/57 (75) 79 Height (Feet): 4 Height (Inches): 9.00 Weight (Pounds): 110 Laboratory Tests Test 09/26/19 11:09 09/26/19 16:14 09/26/19 22:05 09/27/19 05:32 POC Whole Blood Glucose Pending 177 MG/DL (74-106) H Pending Pending Test 09/27/19 06:22 09/27/19 08:30 Sodium Level 141 MMOL/L (136-145) Potassium Level 5.5 MMOL/L (3.5-5.1) H Chloride Level 110 MMOL/L (98-107) H Carbon Dioxide Level 18 MMOL/L (21-32) L Anion Gap 13 mmol/L (5-15) Blood Urea Nitrogen 43 mg/dL (7-18) H Creatinine 1.5 MG/DL (0.55-1.30) #H Estimat Glomerular Filtration Rate 32.9 mL/min (>60) Glucose Level 273 MG/DL (74-106) #H Calcium Level 8.1 MG/DL (8.5-10.1) L White Blood Count 13.2 K/UL (4.8-10.8) H Red Blood Count 3.39 M/UL (4.20-5.40) L Hemoglobin 12.0 G/DL (12.0-16.0) Hematocrit 36.8 % (37.0-47.0) L Mean Corpuscular Volume 109 FL (80-99) H Mean Corpuscular Hemoglobin 35.4 PG (27.0-31.0) H Mean Corpuscular Hemoglobin Concent 32.6 G/DL (32.0-36.0) Red Cell Distribution Width 12.3 % (11.6-14.8) Platelet Count 107 K/UL (150-450) L Mean Platelet Volume 9.7 FL (6.5-10.1) Neutrophils (%) (Auto) % (45.0-75.0) Lymphocytes (%) (Auto) % (20.0-45.0) Monocytes (%) (Auto) % (1.0-10.0) Eosinophils (%) (Auto) % (0.0-3.0) Basophils (%) (Auto) % (0.0-2.0) Differential Total Cells Counted 100 Neutrophils % (Manual) 95 % (45-75) H Lymphocytes % (Manual) 2 % (20-45) L Monocytes % (Manual) 3 % (1-10) Eosinophils % (Manual) 0 % (0-3) Basophils % (Manual) 0 % (0-2) Band Neutrophils 0 % (0-8) Platelet Estimate Decreased L Platelet Morphology Normal Polychromasia 1+ Macrocytosis 1+ Current Medications Medications (Trade) Dose Ordered Sig/Lisa Route PRN Reason Start Time Stop Time Status Last Admin Dose Admin Acetaminophen (Tylenol) 650 mg Q6H PRN ORAL Temp >100.5 09/24/19 01:30 10/24/19 01:29 Acetaminophen (Tylenol) 650 mg Q6H PRN RECTAL Temp >100.5 09/24/19 20:30 10/24/19 20:29 09/26/19 18:04 Dexamethasone (Decadron) 4 mg DAILY ORAL 09/26/19 12:30 10/05/19 09:01 Dextrose 1,000 ml @ 50 mls/hr Q20H IV 09/26/19 11:30 10/26/19 11:29 09/27/19 09:54 Dextrose (Dextrose 50%) 25 ml Q30M PRN IV Hypoglycemia 09/25/19 12:30 12/24/19 12:29 Dextrose (Dextrose 50%) 50 ml Q30M PRN IV Hypoglycemia 09/25/19 12:30 12/24/19 12:29 Donepezil HCl (Aricept) 10 mg DAILY ORAL 09/24/19 09:00 10/24/19 08:59 Famotidine (Pepcid I.v.) 20 mg Q12HR IVP 09/24/19 12:00 10/24/19 11:59 09/27/19 09:46 Heparin Sodium (Porcine) (Heparin 5000 units/ml) 5,000 units EVERY 12 HOURS SUBQ 09/24/19 09:00 11/08/19 08:59 09/25/19 20:39 Insulin Aspart (NovoLOG) BEFORE MEALS AND HS SUBQ 09/25/19 16:30 12/24/19 16:29 Megestrol Acetate (Megace) 40 mg BID ORAL 09/24/19 09:00 09/29/19 08:59 Memantine (Namenda) 10 mg BID ORAL 09/24/19 09:00 10/24/19 08:59 Meropenem 500 mg/ Sodium Chloride 55 ml @ 110 mls/hr Q12H IVPB 09/26/19 13:00 10/01/19 12:59 09/27/19 00:56 Polyethylene Glycol (Miralax) 17 gm HSPRN PRN ORAL Constipation 09/24/19 07:30 10/24/19 07:29 Vancomycin HCl (Vanco pharmacy to dose) 1 ea DAILY PRN MISC Per rx protocol 09/25/19 12:00 10/25/19 11:59 Vancomycin HCl 750 mg/Sodium Chloride 275 ml @ 183.333 mls/hr Q24H IVPB 09/26/19 14:00 10/01/19 13:59 09/26/19 13:11 Zolpidem Tartrate (Ambien) 5 mg HSPRN PRN ORAL Agitation 09/24/19 07:30 10/01/19 07:29 Marilyn Kulkarni MD Sep 27, 2019 11:01
--- NOTE | 2019-09-27 11:20 | NUR ---
NURSE NOTES: Update given to Son. Pt. repositioned for comfort. O2 sat at 89, RR 29 at this time.
--- NOTE | 2019-09-27 11:51 | Cardiac Electrophysiology PN ---
Assessment/Plan Assessment/Plan 1. Sinus tachycardia, likely due to UTI, sepsis and dehydration. EF 45% The patient is DNR/DNI.On iv Abx 2. Covid Respiratory failure on 100% NRB Face Mask. DNR/DNI 3. Severe hypokalemia 2.6. Replaced 3. Lactic acidosis. On IV antibiotic 4. Nonverbal. 5. DNR/DNI. 6. Advanced dementia. CRISTINA RN Subjective Subjective SOB and tachycardic despite Oxygen 15 liter NRB. RN at bedside. Isolation for Covid Objective Last 24 Hour Vital Signs Date Time Temp Pulse Resp B/P (MAP) Pulse Ox O2 Delivery O2 Flow Rate FiO2 09/27/19 08:00 116 09/27/19 08:00 97.5 118 28 103/34 (57) 84 09/27/19 04:00 117 09/27/19 04:00 97.6 123 29 78/39 (52) 82 09/27/19 00:00 127 09/27/19 00:00 97.5 120 28 86/35 (52) 82 09/26/19 21:00 Non-Rebreather 15.0 09/26/19 20:00 96.9 150 32 92/42 (59) 75 09/26/19 20:00 150 09/26/19 18:34 101.1 09/26/19 16:00 101.1 140 52 134/35 (68) 79 09/26/19 16:00 150 09/26/19 12:00 150 09/26/19 11:58 99.5 141 56 113/57 (75) 79 Intake and Output 09/26/19 09/27/19 19:00 07:00 Output Total 200 ml Balance -200 ml Output Urine Total 200 ml # Bowel Movements 1 Laboratory Tests Test 09/26/19 16:14 09/26/19 22:05 09/27/19 05:32 09/27/19 06:22 POC Whole Blood Glucose 177 MG/DL (74-106) H Pending Pending Sodium Level 141 MMOL/L (136-145) Potassium Level 5.5 MMOL/L (3.5-5.1) H Chloride Level 110 MMOL/L (98-107) H Carbon Dioxide Level 18 MMOL/L (21-32) L Anion Gap 13 mmol/L (5-15) Blood Urea Nitrogen 43 mg/dL (7-18) H Creatinine 1.5 MG/DL (0.55-1.30) #H Estimat Glomerular Filtration Rate 32.9 mL/min (>60) Glucose Level 273 MG/DL (74-106) #H Calcium Level 8.1 MG/DL (8.5-10.1) L Test 09/27/19 08:30 White Blood Count 13.2 K/UL (4.8-10.8) H Red Blood Count 3.39 M/UL (4.20-5.40) L Hemoglobin 12.0 G/DL (12.0-16.0) Hematocrit 36.8 % (37.0-47.0) L Mean Corpuscular Volume 109 FL (80-99) H Mean Corpuscular Hemoglobin 35.4 PG (27.0-31.0) H Mean Corpuscular Hemoglobin Concent 32.6 G/DL (32.0-36.0) Red Cell Distribution Width 12.3 % (11.6-14.8) Platelet Count 107 K/UL (150-450) L Mean Platelet Volume 9.7 FL (6.5-10.1) Neutrophils (%) (Auto) % (45.0-75.0) Lymphocytes (%) (Auto) % (20.0-45.0) Monocytes (%) (Auto) % (1.0-10.0) Eosinophils (%) (Auto) % (0.0-3.0) Basophils (%) (Auto) % (0.0-2.0) Differential Total Cells Counted 100 Neutrophils % (Manual) 95 % (45-75) H Lymphocytes % (Manual) 2 % (20-45) L Monocytes % (Manual) 3 % (1-10) Eosinophils % (Manual) 0 % (0-3) Basophils % (Manual) 0 % (0-2) Band Neutrophils 0 % (0-8) Platelet Estimate Decreased L Platelet Morphology Normal Polychromasia 1+ Macrocytosis 1+ Objective HEAD AND NECK: Showed no JVD. LUNGS: Coarse rhonchi. CARDIOVASCULAR: Shows regular S1 and S2 with no gallop. ABDOMEN: Soft. EXTREMITIES: 1+ pitting edema. Parish Smith MD Sep 27, 2019 11:51
--- NOTE | 2019-09-27 11:55 | Surgery Progress Note ---
Surgery Progress Note Subjective Additional Comments uill appearing no n/v/f/c labs noted comfort care Objective Last 24 Hour Vital Signs Date Time Temp Pulse Resp B/P (MAP) Pulse Ox O2 Delivery O2 Flow Rate FiO2 09/27/19 08:00 116 09/27/19 08:00 97.5 118 28 103/34 (57) 84 09/27/19 04:00 117 09/27/19 04:00 97.6 123 29 78/39 (52) 82 09/27/19 00:00 127 09/27/19 00:00 97.5 120 28 86/35 (52) 82 09/26/19 21:00 Non-Rebreather 15.0 09/26/19 20:00 96.9 150 32 92/42 (59) 75 09/26/19 20:00 150 09/26/19 18:34 101.1 09/26/19 16:00 101.1 140 52 134/35 (68) 79 09/26/19 16:00 150 09/26/19 12:00 150 09/26/19 11:58 99.5 141 56 113/57 (75) 79 I&O Intake and Output 09/26/19 09/27/19 19:00 07:00 Output Total 200 ml Balance -200 ml Output Urine Total 200 ml # Bowel Movements 1 Dressing: other Wound: other Drains: other Cardiovascular: RSR Respiratory: decreased breath sounds Abdomen: soft, present bowel sounds Extremities: no cyanosis Laboratory Tests Test 09/26/19 16:14 09/26/19 22:05 09/27/19 05:32 09/27/19 06:22 POC Whole Blood Glucose 177 MG/DL (74-106) H Pending Pending Sodium Level 141 MMOL/L (136-145) Potassium Level 5.5 MMOL/L (3.5-5.1) H Chloride Level 110 MMOL/L (98-107) H Carbon Dioxide Level 18 MMOL/L (21-32) L Anion Gap 13 mmol/L (5-15) Blood Urea Nitrogen 43 mg/dL (7-18) H Creatinine 1.5 MG/DL (0.55-1.30) #H Estimat Glomerular Filtration Rate 32.9 mL/min (>60) Glucose Level 273 MG/DL (74-106) #H Calcium Level 8.1 MG/DL (8.5-10.1) L Test 09/27/19 08:30 White Blood Count 13.2 K/UL (4.8-10.8) H Red Blood Count 3.39 M/UL (4.20-5.40) L Hemoglobin 12.0 G/DL (12.0-16.0) Hematocrit 36.8 % (37.0-47.0) L Mean Corpuscular Volume 109 FL (80-99) H Mean Corpuscular Hemoglobin 35.4 PG (27.0-31.0) H Mean Corpuscular Hemoglobin Concent 32.6 G/DL (32.0-36.0) Red Cell Distribution Width 12.3 % (11.6-14.8) Platelet Count 107 K/UL (150-450) L Mean Platelet Volume 9.7 FL (6.5-10.1) Neutrophils (%) (Auto) % (45.0-75.0) Lymphocytes (%) (Auto) % (20.0-45.0) Monocytes (%) (Auto) % (1.0-10.0) Eosinophils (%) (Auto) % (0.0-3.0) Basophils (%) (Auto) % (0.0-2.0) Differential Total Cells Counted 100 Neutrophils % (Manual) 95 % (45-75) H Lymphocytes % (Manual) 2 % (20-45) L Monocytes % (Manual) 3 % (1-10) Eosinophils % (Manual) 0 % (0-3) Basophils % (Manual) 0 % (0-2) Band Neutrophils 0 % (0-8) Platelet Estimate Decreased L Platelet Morphology Normal Polychromasia 1+ Macrocytosis 1+ Plan Problems: (1) UTI (urinary tract infection) (2) Decubitus skin ulcer Assessment & Plan: Pt presented on admission with multiple Pressure injuries, Hypertrophic Scar with resurfacing Pressure injury. Purple and indurated area at Sacrococcygeal area(L)2.2cm x (W)3.5cm with surrounding hypertrophy. (L)7cm x (W)9cm. L Heel is boggy with non-Blanching erythema. R Heel is Maroon and fluctuant. Pt has non-rebreather Mask and linear erythema with indentations noted to both cheeks. Skin barrier applied and soft padding placed between elastic and skin to minimize friction and pressure. Tx.Plan: Apply Moisture Barrier Paste to Sacrum. Cover with Optifoam drsg. Change every 3 days and prn. Apply Cavilon Skin Barrier to Malleoli and each heel. Cover each site with Optifoam drsg. Change every 7 days and prn. Apply Cavilon Skin Barrier to R and L Cheeks and both earlobes. Cover each cheek with Optifoam drsgs or Soft pads while pt is using oxygen mask. Reposition at least every 2hours or as tolerated. Off-load heels with Pillows APM/ZOHRA Mattress overlay. (3) GIB (gastrointestinal bleeding) (4) COPD exacerbation (5) At high risk for aspiration (6) Suspected COVID-19 virus infection (7) Dementia (8) Protein-calorie malnutrition, severe Assessment & Plan: DAILY ESTIMATED NEEDS: Needs based on Pulmonary, wounds 50kg (EMR wt) 25-35 kcals/kg 7524-5381 total kcals 1.25-2 g protein/kg 63-100 g total protein 25-30 mL/kcal mL/kg 7700-7606 total fluid mLs NUTRITION DIAGNOSIS: Increased kcal,protein, and MVI needs r/t wound healing as evidenced by multiple areas of skin breakdown, refer to WC eval. CURRENT DIET:NPO PO DIET RECOMMENDATIONS: Liberalized, regular diet as medically able (texture per NURSES' AIDE) ADDITIONAL RECOMMENDATIONS: Ht 5'0", wt 30.5kg (67#) on last adm fall 2018, plz weigh on calibrated bed NURSES' AIDE eval when appropriate for diet Wound care: Kyler BID Glucerna TID with meals NISS with meals for glycemic control Monitor lytes + hydration status daily, replete as needed (low mg) . (9) Advanced age (10) Alzheimer's dementia Raghav Moon Sep 27, 2019 11:55
[2019-09-27 12:00] VITALS: BP 94/38
--- NOTE | 2019-09-27 12:00 | NUR ---
NURSE NOTES: Informed Dr. Carlos Pt's POCT result, confirmed OK to give insulin per protocol.
--- NOTE | 2019-09-27 12:39 | NUR ---
ST NOTE SWALLOW STATUS Patient being seen for dysphagia tx and management. Currently, Patient is NPO with Covid Respiratory failure on 100% NRB Face Mask; of note, DNR/DNI. DESIGN ENGINEERING SPECIALIST spoke with Patient's RN who reports Patient is obtunded, unable to participate in DESIGN ENGINEERING SPECIALIST intervention. Patient continues to require NRBM at 15L with RR: 28 (H), HR: 118; SP02 84%. RN is aware of Patient's oral care and hygiene needs, DESIGN ENGINEERING SPECIALIST plans to continue to f/u x2 and monitor Patient's CXR, alertness, and readiness to participate in DESIGN ENGINEERING SPECIALIST dysphagia tx and management to determine safest and least restrictive diet without pulmonary compromise or aspiration PNA. DESIGN ENGINEERING SPECIALIST [phone]
--- NOTE | 2019-09-27 12:46 | General Progress Note ---
Assessment/Plan Problem List: (1) UTI (urinary tract infection) ICD Codes: N39.0 - Urinary tract infection, site not specified SNOMED: 05944785 (2) Decubitus skin ulcer ICD Codes: L89.90 - Pressure ulcer of unspecified site, unspecified stage SNOMED: 427293950 (3) Suspected COVID-19 virus infection ICD Codes: Z20.828 - Contact with and (suspected) exposure to other viral communicable diseases SNOMED: 967801676 (4) Dementia ICD Codes: F03.90 - Unspecified dementia without behavioral disturbance SNOMED: 43457616 (5) Protein-calorie malnutrition, severe ICD Codes: E43 - Unspecified severe protein-calorie malnutrition SNOMED: 124480032 (6) Alzheimer's dementia ICD Codes: G30.9 - Alzheimer's disease, unspecified; F02.80 - Dementia in other diseases classified elsewhere without behavioral disturbance SNOMED: 89382167 Status: unchanged Assessment/Plan: pt diet o2 pulm tx abx cbc bmp am Subjective Constitutional: Reports: weakness Allergies: Coded Allergies: No Known Allergies (Unverified , 03/08/12) All Systems: reviewed and negative except above Subjective o2 mask sleepy Objective Last 24 Hour Vital Signs Date Time Temp Pulse Resp B/P (MAP) Pulse Ox O2 Delivery O2 Flow Rate FiO2 09/27/19 08:00 116 09/27/19 08:00 97.5 118 28 103/34 (57) 84 09/27/19 04:00 117 09/27/19 04:00 97.6 123 29 78/39 (52) 82 09/27/19 00:00 127 09/27/19 00:00 97.5 120 28 86/35 (52) 82 09/26/19 21:00 Non-Rebreather 15.0 09/26/19 20:00 96.9 150 32 92/42 (59) 75 09/26/19 20:00 150 09/26/19 18:34 101.1 09/26/19 16:00 101.1 140 52 134/35 (68) 79 09/26/19 16:00 150 Intake and Output 09/26/19 09/27/19 19:00 07:00 Output Total 200 ml Balance -200 ml Output Urine Total 200 ml # Bowel Movements 1 Laboratory Tests 09/26/19 16:14: POC Whole Blood Glucose 177H 09/26/19 22:05: POC Whole Blood Glucose [Pending] 09/27/19 05:32: POC Whole Blood Glucose [Pending] 09/27/19 06:22: Sodium Level 141, Potassium Level 5.5H, Chloride Level 110H, Carbon Dioxide Level 18L, Anion Gap 13, Blood Urea Nitrogen 43H, Creatinine 1.5#H, Estimat Glomerular Filtration Rate 32.9, Glucose Level 273#H, Calcium Level 8.1L 09/27/19 08:30: White Blood Count 13.2H, Red Blood Count 3.39L, Hemoglobin 12.0, Hematocrit 36.8L, Mean Corpuscular Volume 109H, Mean Corpuscular Hemoglobin 35.4H, Mean Corpuscular Hemoglobin Concent 32.6, Red Cell Distribution Width 12.3, Platelet Count 107L, Mean Platelet Volume 9.7, Neutrophils (%) (Auto) , Lymphocytes (%) ( Auto) , Monocytes (%) (Auto) , Eosinophils (%) (Auto) , Basophils (%) (Auto) , Differential Total Cells Counted 100, Neutrophils % (Manual) 95H, Lymphocytes % (Manual) 2L, Monocytes % (Manual) 3, Eosinophils % (Manual) 0, Basophils % ( Manual) 0, Band Neutrophils 0, Platelet Estimate DecreasedL, Platelet Morphology Normal, Polychromasia 1+, Macrocytosis 1+ 09/27/19 11:57: POC Whole Blood Glucose 235H Height (Feet): 4 Height (Inches): 9.00 Weight (Pounds): 110 General Appearance: lethargic EENT: normal ENT inspection Neck: normal alignment Cardiovascular: normal rate, regular rhythm Respiratory/Chest: no respiratory distress, no accessory muscle use Extremities: normal inspection Skin: normal pigmentation Heber Coello DO Sep 27, 2019 12:46
--- NOTE | 2019-09-27 13:53 | Nephrology Progress Note ---
Assessment/Plan Problem List: (1) Electrolyte imbalance (2) Suspected COVID-19 virus infection (3) Alzheimer's dementia (4) At high risk for aspiration (5) Hypoalbuminemia (6) DNR no code (do not resuscitate) (7) MICHELLE (acute kidney injury) Assessment: Serum creatinine on September 26 Assessment Hypokalemia Hypoalbuminemia Suspected cold with 19 virus infection UTI High aspiration risk Alzheimer's dementia DNR Plan September 26: Lab reviewed. Serum creatinine and serum potassium bethel. Will place a Archer catheter. Patient is DNR and n.p.o. Will continue to monitor renal parameters. Prognosis poor. September 25: Lab reviewed. IV changed to D5W. Stable from renal standpoint of view. Patient DNR. Patient is aspiration risk. Magnesium sulfate IV ordered IV hydration with potassium N.p.o. except medications, patient is aspiration risk Speech therapy evaluation Antibiotics Monitor electrolytes Per orders Subjective ROS Limited/Unobtainable: Yes Objective Objective Last 24 Hour Vital Signs Date Time Temp Pulse Resp B/P (MAP) Pulse Ox O2 Delivery O2 Flow Rate FiO2 09/27/19 08:00 116 09/27/19 08:00 97.5 118 28 103/34 (57) 84 09/27/19 04:00 117 09/27/19 04:00 97.6 123 29 78/39 (52) 82 09/27/19 00:00 127 09/27/19 00:00 97.5 120 28 86/35 (52) 82 09/26/19 21:00 Non-Rebreather 15.0 09/26/19 20:00 96.9 150 32 92/42 (59) 75 09/26/19 20:00 150 09/26/19 18:34 101.1 09/26/19 16:00 101.1 140 52 134/35 (68) 79 09/26/19 16:00 150 Intake and Output 09/26/19 09/27/19 19:00 07:00 Output Total 200 ml Balance -200 ml Output Urine Total 200 ml # Bowel Movements 1 Laboratory Tests 09/26/19 16:14: POC Whole Blood Glucose 177H 09/26/19 22:05: POC Whole Blood Glucose [Pending] 09/27/19 05:32: POC Whole Blood Glucose [Pending] 09/27/19 06:22: Sodium Level 141, Potassium Level 5.5H, Chloride Level 110H, Carbon Dioxide Level 18L, Anion Gap 13, Blood Urea Nitrogen 43H, Creatinine 1.5#H, Estimat Glomerular Filtration Rate 32.9, Glucose Level 273#H, Calcium Level 8.1L 09/27/19 08:30: White Blood Count 13.2H, Red Blood Count 3.39L, Hemoglobin 12.0, Hematocrit 36.8L, Mean Corpuscular Volume 109H, Mean Corpuscular Hemoglobin 35.4H, Mean Corpuscular Hemoglobin Concent 32.6, Red Cell Distribution Width 12.3, Platelet Count 107L, Mean Platelet Volume 9.7, Neutrophils (%) (Auto) , Lymphocytes (%) ( Auto) , Monocytes (%) (Auto) , Eosinophils (%) (Auto) , Basophils (%) (Auto) , Differential Total Cells Counted 100, Neutrophils % (Manual) 95H, Lymphocytes % (Manual) 2L, Monocytes % (Manual) 3, Eosinophils % (Manual) 0, Basophils % ( Manual) 0, Band Neutrophils 0, Platelet Estimate DecreasedL, Platelet Morphology Normal, Polychromasia 1+, Macrocytosis 1+ 09/27/19 11:57: POC Whole Blood Glucose 235H Height (Feet): 4 Height (Inches): 9.00 Weight (Pounds): 110 General Appearance: no apparent distress, lethargic Cardiovascular: tachycardia Respiratory/Chest: decreased breath sounds Abdomen: distended Julio Mclean MD Sep 27, 2019 13:53
--- NOTE | 2019-09-27 14:10 | NUR ---
NURSE NOTES: Son (Delfino) called again and asked if Pt. is being fed. Informed him better to talk to MD to get a better understanding of Pt's situation and decide together. Son agreed.
[2019-09-27] MEDS: Vancomycin 750mg/NS 275ml IVPB SCH ×2 (14:11)
--- NOTE | 2019-09-27 15:26 | NUR ---
DISCHARGE PLANNING FLOOR TECH IS AWARE OF PATIENT'S STATUS CALLED [facility] AND SPOKE WITH RICCI WHO STATED PATIENT CAN RETURN UPON DISCHARGE
[2019-09-27 16:00] VITALS: BP 90/37
--- NOTE | 2019-09-27 16:30 | Consultation ---
DATE OF CONSULTATION: 09/27/2019 CONSULTING PHYSICIAN: Ahsan Jorgensen MD. CHIEF COMPLAINT: Dysphagia. HISTORY OF PRESENT ILLNESS: Most of the history is per chart. This is an 88-year-old female with numerous medical problems including COPD and hypertension, was brought to the hospital from a half-way with shortness of breath and hypoxemia. Patient was found to be COVID positive. Currently, patient has 100% venturi mask on her for oxygenation support. GI consult requested for evaluation of nutrition and possible enteral feeding. PAST MEDICAL HISTORY: 1. History of CVA. 2. Dementia. 3. Hypertension. 4. COPD. 5. Dysphagia. 6. Failure to thrive. 7. Osteoarthritis. ALLERGIES: No known drug allergies. MEDICATIONS: Please see medication reconciliation list. FAMILY HISTORY: Noncontributory. SOCIAL HISTORY: Currently in a half-way. No history of tobacco, alcohol, or drug abuse. PHYSICAL EXAMINATION: VITAL SIGNS: Temperature 97.5, pulse is 118, respirations 28, blood pressure is 103/34. HEENT: Normocephalic and atraumatic. Sclerae anicteric. NECK: Supple. No evidence of obvious lymphadenopathy. CARDIOVASCULAR: Tachy. Regular. Plus S1, S2. LUNGS: Decreased breath sounds bilaterally diffusely on the supine exam. ABDOMEN: Soft, nontender. Bowel sounds are hypoactive. No rebound. No guarding. No peritoneal sign. EXTREMITIES: No cyanosis. No clubbing. No edema. LABORATORY DATA: White count is 13, hemoglobin 12, hematocrit 36, platelet count is 107. ASSESSMENT AND PLAN: This is an 88-year-old female with COVID-positive pneumonia and its complications. Patient is very hypoxic, currently on oxygen mask with saturations to low 70s, tachycardic. Patient also has thrombocytopenia. Definitely not stable for anesthesia for endoscopy and PEG placement at this time. We are going to reevaluate the patient when the respiratory status improves. If it does, we are going to plan an NG tube to feed her for short time until she feels better and if respiratory status becomes stabilized, at that time, we can consider doing PEG. I want to thank Dr. Heber Coello for this kind referral. Ahsanbren Jorgensen M.D. DR: HUSSEIN JOB#: [id number] CC: Heber Coello D.O.
--- NOTE | 2019-09-27 18:10 | NUR ---
NURSE NOTES: Phone call made to Dr. Coello's office. Waiting for a call back.
--- NOTE | 2019-09-27 18:14 | NUR ---
NURSE NOTES: Phone call made to Dr. Coello for 2nd time. Waiting for a call back.
--- NOTE | 2019-09-27 18:58 | NUR ---
PRONOUNCEMENT: No Code. Called to pronounce patient. Absence of spontaneous respirations, no cardiac or breath sounds on auscultation. Pupils fixed and dilated. No carotid pulse or chest movement. Patient at 1855. DR Coello notified. spoke with Dr Alcaraz and he said he will call the son Delfino Pepper.
--- NOTE | 2019-09-27 19:20 | NUR ---
HAND-OFF: Report given to DANICA Tamayo.
--- NOTE | 2019-09-27 20:00 | NUR ---
NURSE NOTES: Was able to reach the son and informed him regarding his mother. Per Son MD didn't call him. He wants to come to the hospital. Night RN to follow up. Informed night CN as well.
--- NOTE | 2019-09-27 20:20 | NUR ---
NURSE NOTES: Cleaned and covered pt. Son to come and visit.
--- NOTE | 2019-09-29 12:40 | Discharge Summary ---
Discharge Summary Discharge Summary _ SUMMARY DATE OF ADMISSION: 09/23/2019 DATE OF DISCHARGE: 09/27/2019 REASON FOR ADMISSION: 88 years old female, resident of longterm facility, with past medical history of DVT, hypertension, COPD, encephalopathy, hypertension, dementia, bedbound, was sent for evaluation due to fever and hypoxia. Apparently patient roomate at the facility was diagnosed with COVID. Patient was on comfort measures only at the facility , however son wanted patient to transfer to the hospital for further evaluation and treatment. Son confirmed DNR/DNI status with ER physician upon questioning. Upon evaluation patient was febrile with temperature 102, tachycardic with heart rate 115 , tachypneic and required 100% nonrebreathing mask saturating only 91%. Laboratory work-up revealed no leukocytosis , stable hemoglobin, hematocrit and platelet count. Urinalysis was revealed +4 protein , hematuria ,pyuria and many bacteria. Stable electrolytes. BUN 23, creatinine 0.9. Glucose 308. Lactic acid 3.2. AST 47, ALT 17. Albumin 2.5. EKG revealed sinus tachycardia , no acute ischemic changes. Chest x-ray demonstrated bilateral haziness: CHF versus multifocal pneumonia. Patient was swabbed for COVID-19 , received bolus of fluids, pancultured and admitted to isolation room to further management. CONSULTANTS: heat and frost insulator Dr Urbina pulmonary Dr. Alcaraz ID specialist Dr. Kulkarni GI specialist Dr. Jorgensen foam caster Dr. Nieto surgery Dr. Moon [facility] COURSE: Patient admitted to isolation room and started on broad-spectrum antibiotic and IV fluids. COVID-19 by PCR came back positive. Blood culture revealed Staph aureus. Urine culture revealed E. coli ESBL. Antibiotic optimized as per ID specialist recommendation. Patient started on steroids. Patient received ivermectin. Supplemental oxygen provided and titrated to keep pulse oximetry above 92%. Pulmonary toilet provided. Patient was 100% nonrebreathing mask. Follow-up chest x-ray revealed worsening of bilateral infiltrates. Blood sugar was managed as per foam caster recommendation. Hypoglycemia protocol was in order. Thyroid labs were mostly consistent with a sick euthyroid , and no need for thyroid medications as per foam caster, Troponin checked and was negative. Patient developed sinus tachycardia, likely due to UTI , sepsis and dehydration. ECHO with ejection fraction 45%. Renal parameters and electrolytes were closely monitored. Nephrotoxins were avoided. Creatinine on the day of expiration went up to 1.5. Patient had severe protein calorie malnutrition. Per bedside swallow evaluation patient was not safe for oral intake at this time given high risk for aspiration. GI consult was requested. Patient required feeding tube. However, patient was not stable for endoscopy . Patient was continued on the IV fluids , GI specialist recommended NG tube for short-term until respiratory status stabilized, and then G tube placement if stable Wound care for present on admission multiply pressure injury , provided as per surgeon recommendation. Patient remained hypoxic , tachypneic and tachycardic. Patient with DNR/DNI status. Supportive care provided. Patient condition slowly deteriorated Patient was pronounced at 18:55 on 09/26. Cause of : cardiopulmonary arrest FINAL DIAGNOSES: Confirmed COVID-19 pneumonia Staph sepsis E. coli ESBL UTI Acute hypoxemic respiratory failure (requiring 100 % nonrebreathing mask) Acute kidney injury Electrolyte imbalance Lactic acidosis Encephalopathy Diabetes mellitus with hyperglycemia COPD Sinus tachycardia (likely due to UTI ,sepsis and dehydration) Electrolyte imbalance : hypokalemia Severe protein calorie malnutrition High aspiration risk Alzheimer dementia Abnormal thyroid function test Decubitus skin ulcers, POA DNR status I have been assigned to dictate discharge summary for this account. I was not involved in the patient's management. Brandie Ritchie NP Sep 29, 2019 12:40
== END 2019-09-27 18:55 | disposition expired | DRG 871 ==
LOC: EDBD 18:35 → EMR 19:24 → 2E 19:33 → EDBEDREQ 21:16 → 2E 23:10
DX: A41.2 Sepsis due to unspecified staphylococcus (principal); E43 Unspecified severe protein-calorie malnutrition; U07.1 COVID-19; J12.89 Other viral pneumonia; J96.01 Acute respiratory failure with hypoxia; N39.0 Urinary tract infection, site not specified; G93.40 Encephalopathy, unspecified; Z16.12 Extended spectrum beta lactamase (ESBL) resistance; N17.9 Acute kidney failure, unspecified; L89.610 Pressure ulcer of right heel, unstageable; L89.626 Pressure-induced deep tissue damage of left heel; L89.156 Pressure-induced deep tissue damage of sacral region; B96.89 Other specified bacterial agents as the cause of diseases classified elsewhere; F03.90 Unspecified dementia, unspecified severity, without behavioral disturbance, psychotic disturbance, mood disturbance, and anxiety; Z66 Do not resuscitate; R13.10 Dysphagia, unspecified; M19.90 Unspecified osteoarthritis, unspecified site; R62.7 Adult failure to thrive; G30.9 Alzheimer's disease, unspecified; F02.80 Dementia in other diseases classified elsewhere, unspecified severity, without behavioral disturbance, psychotic disturbance, mood disturbance, and anxiety; E87.6 Hypokalemia; B96.20 Unspecified Escherichia coli [E. coli] as the cause of diseases classified elsewhere; E86.0 Dehydration; R94.6 Abnormal results of thyroid function studies
CPT/HCPCS: 36415; 71045; 80048; 80053; 80061; 81003; 82248; 82607; 82728; 82746; 82962; 82977; 83540; 83550; 83605; 83615; 83735; 83880; 84100; 84439; 84443; 84481; 84484; 85007; 85025; 86140; 87040; 87081; 87086; 87181; 93005; 93306; 96361; 96365; 96375; 99291; J1815; J7030